=== PATIENT | female | born 1945 | race Caucasian/White ===

== ENCOUNTER 2016-07-14 11:55 | Observation (INO) | payer MEDICARE, SELFPAY ==
--- NOTE | 2016-07-14 12:13 | ERPHSYRPT ---
- History of Present Illness Time Seen by Provider: 07/14/16 12:00 Source: patient, family, other (Dr. Iyer's office) Exam Limitations: clinical condition Patient Subjective Stated Complaint: pt states she was working at [employer] and had a sudden onset of weakness and slurred speach. pt states she felt fine this morning up until 1000. Triage Nursing Assessment: pt pink, warm, dry. pt alert and oriented x3. pupils perrl. hand inspector advanced composite and foot pushes equal and strong. pt speach normal, only delayed. Timing/Duration: hour(s) (2) Severity: severe Character of Deficits: new weakness, altered sensation, impaired speech Deficits: weak Baseline/Normal Cognition: alert oriented x 3 Current Cognition: alert oriented x 3 Baseline Gait: walks w/o assistance Associated Symptoms: weakness, paresthesia, slurred speech Allergies/Adverse Reactions: morphine Adverse Reaction (Verified 07/14/16 12:05) BEHAVIOR Home Medications: Alprazolam 1 mg [Xanax 1 mg] 1 mg PO BID #0 02/10/12 [History] Carvedilol 3.125 mg [Coreg 3.125 MG] 3.125 mg PO BID #0 02/10/12 [History ] Metformin HCl 1000 mg [Glucophage 1000 MG] 1,000 mg PO BID #0 02/10/12 [History ] Cyclobenzaprine HCl 10 mg PO HS 07/14/16 [History] Escitalopram Oxalate 20 mg PO DAILY 07/14/16 [History] Magnesium Oxide 400 mg [Mag-Ox 400] 400 mg PO DAILY 07/14/16 [History] Potassium Chloride 20 Meq [Klor-Con 20 MEQ] 20 meq PO TID 07/14/16 [History] Pravastatin Sodium 40 mg PO DAILY 07/14/16 [History] Ropinirole HCl 0.25 mg PO HS 07/14/16 [History] Spironolact/Hydrochlorothiazid [Spironolactone-Hctz 25-25 Tab] 1 each PO DAILY 07/14/16 [History] Tizanidine HCl [Zanaflex] 2 mg PO TID 07/14/16 [History] Hx Tetanus, Diphtheria Vaccination/Date Given: Yes (up to date) Hx Influenza Vaccination/Date Given: Yes Hx Pneumococcal Vaccination/Date Given: Yes Immunizations Up to Date: Yes - Review of Systems Constitutional: Weakness Eyes: No Symptoms Ears, Nose, & Throat: No Symptoms Respiratory: No Symptoms Cardiac: No Symptoms Abdominal/Gastrointestinal: No Symptoms Musculoskeletal: No Symptoms Skin: No Symptoms Neurological: Parasthesia, Sensory Changes, Speech Changes Psychological: No Symptoms Endocrine: No Symptoms Hematologic/Lymphatic: No Symptoms Immunological/Allergic: No Symptoms - Past Medical History Pertinent Past Medical History: Yes Neurological History: No Pertinent History ENT History: Cataracts Cardiac History: Congestive Heart Failure, Other Respiratory History: No Pertinent History Endocrine Medical History: Diabetes Type II Musculoskeletal History: No Pertinent History GI Medical History: No Pertinent History History: No Pertinent History Psycho-Social History: Anxiety, Depression Female Reproductive Disorders: No Pertinent History Other Medical History: pacemaker/defib, cariomyopathy - Past Surgical History Past Surgical History: Yes Neuro Surgical History: No Pertinent History Cardiac: Pacemaker Respiratory: No Pertinent History Gastrointestinal: No Pertinent History Genitourinary: No Pertinent History Musculoskeletal: No Pertinent History Female Surgical History: Hysterectomy - Social History Smoking Status: Former smoker Exposure to second hand smoke: No Drug Use: none Patient Lives Alone: No - Female History Hx Now: No - Nursing Vital Signs Nursing Vital Signs: Initial Vital Signs Temperature 98.0 F Temperature Source Oral Pulse Rate 86 Respiratory Rate 18 Blood Pressure 122/71 Pain Intensity 0 - Strong Coma Scale Best Eye Response (Strong): (4) open spontaneously Best Verbal Response (Strong): (5) oriented Best Motor Response (Benji): (6) obeys commands Benji Total: 15 - Physical Exam General Appearance: mild distress, anxiety Eye Exam: bilateral eye: normal inspection, PERRL, EOMI Ears, Nose, Throat Exam: normal ENT inspection, pharynx normal Neck Exam: normal inspection, non-tender, supple, full range of motion Respiratory: normal breath sounds, lungs clear Cardiovascular: regular rate/rhythm, normal heart sounds, normal peripheral pulses Gastrointestinal: soft, normal bowel sounds Back Exam: normal inspection, normal range of motion Extremity Exam: normal inspection, normal range of motion, pelvis stable, parasthesia (right (dominant) thumb) Peripheral Pulses: dorsalis-pedis (R): 3+, dorsalis-pedis (L): 3+ Mental Status: alert, oriented x 3, cooperative exercise physiologist certified Exam: abnormal speech (slightly slow and slurred, but understandable and appropriate), hearing deficit (L) (at baseline. Cl hearing aids in place.), tongue midline Coordination/Gait: normal gait, normal cerebellar function Motor/Sensory: sensory deficit (right FA and hand. Unable to discriminate 2 points.) Skin Exam: normal color, warm, dry SpO2 Interpretation: normal SpO2: 100 Oxygen Delivery: Room Air - Course EKG Interpreted by Me: RATE (85), NORMAL AXIS (for pacemaker. Unchanged ECG since 02.11.2012 ECG.), Other (RV pacemaker ) - Radiology Exams Chest X-ray Interpretation: Discussed w/ radiologist, Negative - CT Exams Head CT Interpretation: Tele-radiologist Report (Stable negative CT head) Ordered Tests: Active Orders 24 hr Category Date Time Status ACCUCHECK [Accucheck] STAT Care 07/14/16 12:15 Active Post Production Assistant STAT Care 07/14/16 12:00 Active EKG-ER Only STAT Care 07/14/16 12:00 Active IV Insertion STAT Care 07/14/16 12:00 Active IV Insertion-2nd Peripheral STAT Care 07/14/16 12:27 Active NPO (ED) STAT Care 07/14/16 12:00 Active Oxygen-ED Only NASAL CANNULA 2 lpm Care 07/14/16 12:00 Active Pulse Oximetry (ED) STAT Care 07/14/16 12:00 Active CHEST 1 VIEW (PORTABLE) Stat Exams 07/14/16 12:00 Completed HEAD WITHOUT CONTRAST [CT] Stat Exams 07/14/16 12:01 Completed CBC W DIFF Stat Lab 07/14/16 12:18 Completed CMP Stat Lab 07/14/16 12:18 Completed PROTIME WITH INR Stat Lab 07/14/16 12:18 Completed PTT Stat Lab 07/14/16 12:18 Completed UA Stat Lab 07/14/16 12:18 Ordered Lab/Rad Data: Laboratory Result Diagrams 07/14/16 12:18 07/14/16 12:18 Laboratory Results 07/14/16 07/14/16 07/14/16 Range/Units 12:18 12:18 12:18 WBC 8.5 (4.0-10.5) K/mm3 RBC 4.83 (4.1-5.4) M/mm3 Hgb 14.5 (12.0-16.0) gm/dl Hct 43.2 (35-47) % MCV 89.4 (78-100) fl MCH 30.0 (26-32) pg MCHC 33.6 (32-36) g/dl RDW 12.9 (11.5-14.0) % Plt Count 179 (150-450) K/mm3 MPV 11.9 H (6-9.5) fl Gran % 52.5 (36.0-66.0) % Lymphocytes % 40.1 (24.0-44.0) % Monocytes % 6.3 (0.0-12.0) % Eosinophils % 0.9 (0.00-5.0) % Basophils % 0.2 (0.0-0.4) % Basophils # 0.02 (0-0.4) INR 1.00 (0.8-3.0) PTT 27.0 (25.3-37.0) SECONDS Sodium 141 (136-145) mEq/L Potassium 3.7 (3.5-5.1) mEq/L Chloride 101 (98-107) mEq/L Carbon Dioxide 27.2 (21-32) mEq/L Anion Gap 16.6 H (5-15) MEQ/L BUN 26 H (9-20) mg/dL Creatinine 1.33 H (0.55-1.30) mg/dl Estimated GFR 42 ML/MIN Glucose 126 H (70-110) MG/DL Calcium 9.3 (8.5-10.1) mg/dL Total Bilirubin 0.5 (0.2-1.0) mg/dL AST 21 (15-37) U/L ALT 22 (12-78) U/L Alkaline Phosphatase 67 (46-116) U/L Serum Total Protein 8.0 (6.4-8.2) gm/dL Albumin 4.4 (3.4-5.0) g/dL - Progress Progress: improved Discussed with : Shireen Counseled pt/family regarding: lab results, diagnosis, need for follow-up, rad results - Departure Time of Disposition: 12:45 Departure Disposition: Observation Clinical Impression: Complicated migraine TIA (transient ischemic attack) Qualifiers: Transient cerebral ischemia type: unspecified Qualified Code(s): G45.9 - Transient cerebral ischemic attack, unspecified Condition: Stable Critical Care Time: Yes Critical Care Time(excluding separately billable procedures): 30-74 minutes
--- NOTE | 2016-07-14 12:20 | XRAY ---
Indication: Stroke. Comparison: November 26, 2015 Portable chest remains clear. Heart is not enlarged and again demonstrates left-sided AICD. Bony thorax intact. Impression: Stable nonacute chest.
[2016-07-14 12:24] LABS: BASOPHIL % 0.2 % (0.0-0.4); Eosinophil % 0.9 % (0.00-5.0); Granulocytes % 52.5 % (36.0-66.0); Lymphocytes % 40.1 % (24.0-44.0); Mean Cell Volume 89.4 fl (78-100); Mean Platelet Volume 11.9 fl (6-9.5); Monocytes % 6.3 % (0.0-12.0); Platelet Count 179 K/mm3 (150-450); Red Blood Count 4.83 M/mm3 (4.1-5.4); Red Cell Distribution Width 12.9 % (11.5-14.0); White Blood Count 8.5 K/mm3 (4.0-10.5)
--- NOTE | 2016-07-14 12:25 | XRAY ---
Indication: Stroke. Multiple contiguous axial images obtained through the head without contrast. Comparison: March 09, 2014 Stable age-appropriate global atrophy. No acute intracranial hemorrhage, abnormal extra-axial fluid collection, or mass effect. Fourth ventricle is midline without hydrocephalus. Pascual-white matter differentiation preserved. Bony calvarium intact. Visualized paranasal sinuses and mastoid air cells are pneumatized and clear. Impression: Stable negative CT head without contrast exam. CTDI is 68.51
[2016-07-14 12:43] LABS: ALBUMIN 4.4 g/dL (3.4-5.0); ANION GAP 16.6 MEQ/L (5-15); BILIRUBIN,TOTAL 0.5 mg/dL (0.2-1.0); Carbon Dioxide 27.2 mEq/L (21-32); Potassium 3.7 mEq/L (3.5-5.1)
[2016-07-14 12:49] LABS: PROTIME 11.2 SECONDS (9.95-12.35)
[2016-07-14] MEDS ORDERED: Zofran 4 MG/2 ML VIAL IV PRN (13:15)
[2016-07-14] MEDS ORDERED: BABY ASPIRIN 81 MG CHEW ONE (13:23)
[2016-07-14 14:22] LABS: COMPLETE URINE MICROSCOPIC? NO; Collection Type VOID
[2016-07-14] MEDS: NovoLOG Insulin SQ PRN ×2 (17:06→22:04)
[2016-07-14] MEDS: Coreg 3.125 MG PO SCH (21:46)
[2016-07-14] MEDS: Klor Con 10 MEQ PO SCH (21:47)
[2016-07-14] MEDS: XANAX 1 MG PO SCH (21:47)
[2016-07-14] MEDS: MAG-OX 400 PO SCH (21:48)
[2016-07-14] MEDS ORDERED: NON-FORMULARY ITEM (Sacubitril/Valsartan [Entresto 24 Mg-26 Mg Tablet] 1 EACH) PO SCH (22:00)
[2016-07-14] MEDS ORDERED: ROPINIROLE HCL 0.25 MG PO SCH (22:00)
[2016-07-14] MEDS ORDERED: Flexeril 10 MG PO SCH (22:00)
[2016-07-14] MEDS ORDERED: ZOCOR 20MG PO SCH (22:00)
[2016-07-14] MEDS ORDERED: NON-FORMULARY ITEM (Potassium Chloride 20 Meq [Klor-Con 20 Meq] 20 MEQ) PO SCH (22:00)
[2016-07-14] MEDS ORDERED: Requip 0.5 MG PO SCH (22:00)
[2016-07-15] MEDS: MAG-OX 400 PO SCH (08:38)
[2016-07-15] MEDS: Klor Con 10 MEQ PO SCH ×2 (08:38→14:58)
[2016-07-15] MEDS: XANAX 1 MG PO SCH (08:38)
[2016-07-15] MEDS: TYLENOL 325 MG PO PRN ×2 (08:47→12:59)
[2016-07-15] MEDS: Coreg 3.125 MG PO SCH (08:57)
[2016-07-15] MEDS ORDERED: Lasix 40 MG PO SCH (10:00)
[2016-07-15] MEDS ORDERED: PROTONIX 40 MG IV IV SCH (10:00)
[2016-07-15] MEDS ORDERED: MEDICATION INTERVENTION MC SCH (10:00)
[2016-07-15] MEDS ORDERED: CLARITIN 10 MG PO SCH (10:00)
[2016-07-15] MEDS ORDERED: Aldactone 25 MG PO SCH (10:00)
[2016-07-15] MEDS ORDERED: NON-FORMULARY ITEM (Escitalopram Oxalate [Escitalopram Oxalate] 20 MG) PO SCH (10:00)
[2016-07-15] MEDS ORDERED: NON-FORMULARY ITEM (Cetirizine Hcl [Zyrtec] 10 MG) PO SCH (10:00)
[2016-07-15] MEDS ORDERED: [UNRECOGNIZED DRUG - OTHER] PO SCH (10:00)
[2016-07-15] MEDS ORDERED: NON-FORMULARY ITEM (Pravastatin Sodium [Pravastatin Sodium] 40 MG) PO SCH (10:00)
[2016-07-15] MEDS ORDERED: ECOTRIN 81 MG PO SCH (10:00)
[2016-07-15] MEDS ORDERED: Lexapro 10 MG PO SCH (10:00)
[2016-07-15] MEDS ORDERED: hydroDIURIL 25 MG PO SCH (10:00)
[2016-07-15] MEDS ORDERED: BABY ASPIRIN 81 MG CHEW PO SCH (10:00)
--- NOTE | 2016-07-15 12:36 | XRAY ---
Indication: TIA symptoms. Two-dimensional sonogram and color Doppler imaging of the carotid arteries of the neck was performed. Comparison: None Examination of the right carotid circulation negative for focal plaquing, critical stenosis, or obstruction. PSV of the CCA is 86 cm/s. PSV of the ICA is 72 cm/s. ICA/CCA ratio is 0.8. Normal antegrade vertebral artery flow. Examination of the left carotid circulation demonstrates slightly tortuous common carotid artery with minimal eccentric plaque in the proximal common carotid artery and bulb extending into the origin of internal and external carotid arteries. PSV of the CCA is 77 cm/s. PSV of the ICA is 85 cm/s. ICA/CCA ratio is 1.1. Normal antegrade vertebral artery flow. Impression: Minimal arteriosclerotic plaquing in the left carotid circulation with widely patent right carotid circulation. Velocity measurements and ratios are negative for hemodynamically significant flow-limiting stenosis.
[2016-07-15] MEDS ORDERED: Sodium Chloride 0.9% 10 ML FLUSH Syringe IV PRN (13:02)
[2016-07-15] MEDS ORDERED: BABY ASPIRIN 81 MG CHEW PO ONE (13:24)
--- NOTE | 2016-07-15 13:35 | PCM.SSS ---
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 She then could not think of words to speak and could not write words on paper. She also c/o numbness in R thumb and some patchy numbness in L hand with heaviness in L arm. A coworker had her sit down and she was able to text her daughter that there was something wrong; daughter came to get her and took her to ER. CT brain was neg. Initial stroke score of 3; decreased to 1 while in ER. Teleneurology consult was done; they felt the episode could be complicated migraine (patient had classic migraine with aura years ago) but could be TIA and needed admission for further workup. She has had an echo cardiogram within the last 6 months. Cannot get MRI due to having pacemaker. - Review of Systems Cardiac: Other (chest pressure) Abdominal/Gastrointestinal: Abdominal Pain, Other (feeling bloated and "pinched " when she bends over for the past 4-5 months) Neurological: Headache (some BIGGS superior scalp around the time of the episode), Parasthesia, Speech Changes Psychological: Anxiety, Depression (no suicidal ideation), No Suicidal Ideations Medications & Allergies Home Medications: Home Medication List Alprazolam 1 mg [Xanax 1 mg] 1 mg PO BID #0 02/10/12 [History Confirmed 07/14/16] Carvedilol 3.125 mg [Coreg 3.125 MG] 3.125 mg PO BID #0 02/10/12 [ History Confirmed 07/14/16] Metformin HCl 1000 mg [Glucophage 1000 MG] 1,000 mg PO BID #0 02/10/12 [ History Confirmed 07/14/16] Cetirizine HCl [Zyrtec] 10 mg PO DAILY 07/14/16 [History Confirmed 07/14/16] Cyclobenzaprine HCl 10 mg PO HS 07/14/16 [History Confirmed 07/14/16] Escitalopram Oxalate 20 mg PO DAILY 07/14/16 [History Confirmed 07/14/16] Furosemide 40 mg [Lasix 40 MG] 60 mg PO DAILY 07/14/16 [History Confirmed 07/14/16] Liraglutide [Victoza 2-Baldemar] 0.6 mg SQ HS 07/14/16 [History Confirmed 07/14/16] Magnesium Oxide 400 mg [Mag-Ox 400] 400 mg PO BID 07/14/16 [History Confirmed 07/14/16] Potassium Chloride 20 Meq [Klor-Con 20 MEQ] 20 meq PO TID 07/14/16 [History Confirmed 07/14/16] Pravastatin Sodium 40 mg PO DAILY 07/14/16 [History Confirmed 07/14/16] Ropinirole HCl 0.25 mg PO HS 07/14/16 [History Confirmed 07/14/16] Sacubitril/Valsartan [Entresto 24 mg-26 mg Tablet] 1 each PO HS 07/14/16 [ History Confirmed 07/14/16] Spironolact/Hydrochlorothiazid [Spironolactone-Hctz 25-25 Tab] 1 each PO DAILY 07/14/16 [History Confirmed 07/14/16] Tizanidine HCl [Zanaflex] 2 mg PO TID 07/14/16 [History Confirmed 07/14/16] Aspirin [Aspirin EC] 81 mg PO DAILY #30 tablet. 07/15/16 [Rx] Allergies/Adverse Reactions: Allergies Allergy/AdvReac Type Severity Reaction Status Date / Time morphine AdvReac BEHAVIOR Verified 07/14/16 12:05 - Past Medical History Past Medical History: Yes Neurological History: Migraines ENT History: Cataracts Cardiac History: Congestive Heart Failure, High Cholesterol, Other Respiratory History: No Pertinent History Endocrine Medical History: Diabetes Type II Musculoskelatal History: Fibromyalgia GI Medical History: No Pertinent History, Other History: No Pertinent History Pyscho-Social History: Anxiety, Depression Reproductive Disorders: No Pertinent History Comment: pacemaker/defib, cardiomyopathy; chronic constipation - Female History Are you now?: No - Past Surgical History Past Surgical History: Yes Neuro Surgical History: No Pertinent History Cardiac History: Pacemaker Respiratory Surgery: No Pertinent History GI Surgical History: No Pertinent History Genitourinary Surgical Hx: No Pertinent History Musculskeletal Surgical Hx: No Pertinent History Female Surgical History: Hysterectomy - Social History Smoking Status: Former smoker Exposure to second hand smoke: No Alcohol: None Drug Use: none - Physical Exam Vital Signs: Vital Signs - 24 hr Temp Pulse Resp BP Pulse Ox 07/15/16 12:00 18 07/15/16 11:37 98.5 F 84 18 104/61 94 L 07/15/16 08:00 18 07/15/16 07:13 98.3 F 79 18 91/55 98 07/15/16 07:06 82 18 95 07/15/16 04:00 97.7 F 81 18 94/55 97 07/15/16 00:00 98.0 F 91 H 17 88/53 94 L 07/14/16 21:15 96 07/14/16 20:00 98.3 F 97 H 19 107/53 96 07/14/16 15:44 86 16 98 07/14/16 15:03 98.4 F 91 H 18 100/57 97 07/14/16 13:50 98.4 F 91 H 18 100/57 97 07/14/16 13:40 98.4 F 91 H 18 100/57 97 Oxygen-Last 24 hours O2 Percentage 2 Liters = 28% O2 Percentage 2 Liters = 28% O2 Percentage 2 Liters = 28% O2 Percentage 2 Liters = 28% General Appearance: no apparent distress Neurologic Exam: alert, oriented x 3, cooperative, photo checker II-XII nml as tested (CN II not specifically tested, no light available), normal mood/affect, No motor weakness (applier 5/5 bilat) Eye Exam: PERRL/EOMI, eyes nml inspection Neck Exam: normal inspection, non-tender, No lymphadenopathy Respiratory Exam: normal breath sounds, lungs clear, No crackles/rales, No rhonchi, No wheezing Cardiovascular Exam: regular rate/rhythm, normal heart sounds Gastrointestinal/Abdomen Exam: soft, normal bowel sounds, No tenderness, No distention, No mass Extremity Exam: No pedal edema, No swelling Skin Exam: normal color, warm, dry Results - Labs Lab/Micro Results: Accuchecks Date 07/15/16 Date 07/15/16 Date 07/14/16 Date 07/14/16 Time 11:30 Time 07:30 Time 16:30 Accucheck Value: 112 Accucheck Value: 182 Accucheck Value: 170 Lab Results-Last 24 Hours 07/14/16 07/14/16 Range/Units 14:00 14:10 Troponin I < 0.017 (0.000-0.056) ng/ml Ur Collection Type VOID Urine Color YELLOW (YELLOW) Urine Appearance CLEAR (CLEAR) Urine pH 5.0 (5-6) Ur Specific [place] 1.010 (1.005-1.025) Urine Protein NEGATIVE (Negative) Urine Glucose (UA) NEGATIVE (NEGATIVE) mg/dL Urine Ketones NEGATIVE (NEGATIVE) Urine Nitrite NEGATIVE (NEGATIVE) Urine Bilirubin NEGATIVE (NEGATIVE) Urine Urobilinogen 0.2 (0-1) mg/dL Urine WBC (Auto) NEGATIVE (NEGATIVE) Urine RBC (Auto) NEGATIVE (0-5) Jorge/ul Specimen Received 07/14/15 1410 Accuchecks Date 07/15/16 Date 07/15/16 Date 07/14/16 Date 07/14/16 Time 11:30 Time 07:30 Time 16:30 Accucheck Value: 112 Accucheck Value: 182 Accucheck Value: 170 - Radiology Impressions Radiology Exams & Impressions: Radiology Procedures Category Date Time Status CAROTID BILATERAL [US] Urgent Exams 07/15/16 08:19 Completed - Other Procedures and Tests Respiratory Therapy 07/14/16 13:15 Oxygen NASAL CANNULA 2 lpm Assessment/Plan (1) TIA (transient ischemic attack) Current Visit: Yes Status: Acute Qualifiers: Transient cerebral ischemia type: unspecified Qualified Code(s): G45.9 - Transient cerebral ischemic attack, unspecified Assessment & Plan: vs complicated migraine. Would advise f/u with neurology. Currently not on blood thinner; started 81mg ASA here in the hospital and advised her to continue it at home. (2) Abdominal pain Current Visit: Yes Status: Acute Qualifiers: Abdominal location: generalized Qualified Code(s): R10.84 - Generalized abdominal pain Assessment & Plan: and bloating, for the past few months. will go ahead and start workup with CT ab /dpelvis. has had EGD years ago. Code(s): R10.9 - UNSPECIFIED ABDOMINAL PAIN (3) Diabetes mellitus Current Visit: No Status: Chronic Qualifiers: Diabetes mellitus type: type 2 Diabetes mellitus complication status: without complication Diabetes mellitus penitentiary insulin use: without training executive use Qualified Code(s): E11.9 - Type 2 diabetes mellitus without complications Assessment & Plan: Blood sugar good this morning; cover with SS as needed Code(s): E11.9 - TYPE 2 DIABETES MELLITUS WITHOUT COMPLICATIONS (4) Renal failure Current Visit: No Status: Chronic Assessment & Plan: chronic. eGFR 50 last month. recheck outpatient in 1-2 wks. Hospital Summary - Hospital Course Hospital Course: Pt admitted with question of TIA vs complicated migraine. Doing well now, no issues, feeling good. On ROS she is c/o abd pain with bloating for several months; will check that before she is discharged home. Otherwise, d/c home on ASA 81mg daily. - Vitals & Intake/Output Vital Signs: Vital Signs Temperature 98.5 F 07/15/16 11:37 Pulse Rate 84 07/15/16 11:37 Respiratory Rate 18 07/15/16 12:00 Blood Pressure 104/61 07/15/16 11:37 O2 Sat by Pulse Oximetry 94 L 07/15/16 11:37 Oxygen-Last Documented O2 Percentage 2 Liters = 28% Intake & Output: Intake & Output 07/13/16 07/14/16 07/15/16 07/16/16 11:59 11:59 11:59 11:59 Intake Total 2400 380 Balance 2400 380 Weight 71.259 kg - Lab Result Diagrams: 07/14/16 12:18 07/14/16 12:18 Lab Results-Last 24 Hrs: Accuchecks Date 07/15/16 Date 07/15/16 Date 07/14/16 Date 07/14/16 Time 11:30 Time 07:30 Time 16:30 Accucheck Value: 112 Accucheck Value: 182 Accucheck Value: 170 Lab Results-Last 24 Hours 07/14/16 07/14/16 Range/Units 14:00 14:10 Troponin I < 0.017 (0.000-0.056) ng/ml Ur Collection Type VOID Urine Color YELLOW (YELLOW) Urine Appearance CLEAR (CLEAR) Urine pH 5.0 (5-6) Ur Specific [place] 1.010 (1.005-1.025) Urine Protein NEGATIVE (Negative) Urine Glucose (UA) NEGATIVE (NEGATIVE) mg/dL Urine Ketones NEGATIVE (NEGATIVE) Urine Nitrite NEGATIVE (NEGATIVE) Urine Bilirubin NEGATIVE (NEGATIVE) Urine Urobilinogen 0.2 (0-1) mg/dL Urine WBC (Auto) NEGATIVE (NEGATIVE) Urine RBC (Auto) NEGATIVE (0-5) Jorge/ul Specimen Received 07/14/15 1410 Micro Results-Entire Visit: Accuchecks Date 07/15/16 Date 07/15/16 Date 07/14/16 Date 07/14/16 Time 11:30 Time 07:30 Time 16:30 Accucheck Value: 112 Accucheck Value: 182 Accucheck Value: 170 - Radiology Exams Ordered Rad Exams-Entire Visit: Radiology Procedures Category Date Time Status CAROTID BILATERAL [US] Urgent Exams 07/15/16 08:19 Completed - Procedures and Test Procedures and Tests throughout Hospitalization: Therapy Orders & Screens 07/14/16 13:15 Oxygen NASAL CANNULA 2 lpm Comment: - Discharge Disposition: Home, Self-Care Condition: Stable Prescriptions: Aspirin [Aspirin EC] 81 mg PO DAILY #30 tablet. Medications: Home Medications Alprazolam 1 mg [Xanax 1 mg] 1 mg PO BID #0 02/10/12 [Confirmed 07/14/16] Carvedilol 3.125 mg [Coreg 3.125 MG] 3.125 mg PO BID #0 02/10/12 [ Confirmed 07/14/16] Metformin HCl 1000 mg [Glucophage 1000 MG] 1,000 mg PO BID #0 02/10/12 [ Confirmed 07/14/16] Cetirizine HCl [Zyrtec] 10 mg PO DAILY 07/14/16 [Confirmed 07/14/16] Cyclobenzaprine HCl 10 mg PO HS 07/14/16 [Confirmed 07/14/16] Escitalopram Oxalate 20 mg PO DAILY 07/14/16 [Confirmed 07/14/16] Furosemide 40 mg [Lasix 40 MG] 60 mg PO DAILY 07/14/16 [Confirmed 07/14/16 ] Liraglutide [Victoza 2-Baldemar] 0.6 mg SQ HS 07/14/16 [Confirmed 07/14/16] Magnesium Oxide 400 mg [Mag-Ox 400] 400 mg PO BID 07/14/16 [Confirmed 09/25] Potassium Chloride 20 Meq [Klor-Con 20 MEQ] 20 meq PO TID 07/14/16 [Confirmed ] Pravastatin Sodium 40 mg PO DAILY 07/14/16 [Confirmed 07/14/16] Ropinirole HCl 0.25 mg PO HS 07/14/16 [Confirmed 07/14/16] Sacubitril/Valsartan [Entresto 24 mg-26 mg Tablet] 1 each PO HS 07/14/16 [ Confirmed 07/14/16] Spironolact/Hydrochlorothiazid [Spironolactone-Hctz 25-25 Tab] 1 each PO DAILY 07/14/16 [Confirmed 07/14/16] Tizanidine HCl [Zanaflex] 2 mg PO TID 07/14/16 [Confirmed 07/14/16] Active Inpatient Medications Acetaminophen (Tylenol 325 Mg) 650 mg PO Q4H PRN PRN PRN Reason: PAIN AND/OR FEVER Stop: 08/13/16 13:14 Last Admin: 07/15/16 12:59 Dose: 650 mg Alprazolam (Xanax 1 Mg) 1 mg PO BID [facility] Stop: 08/13/16 21:59 Last Admin: 07/15/16 08:38 Dose: 1 mg Aspirin (Ecotrin 81 Mg) 81 mg PO DAILY [facility] Stop: 08/14/16 09:59 Last Admin: 07/15/16 08:38 Dose: 81 mg Carvedilol (Coreg 3.125 Mg) 3.125 mg PO BID [facility] Stop: 08/13/16 21:59 Last Admin: 07/15/16 08:57 Dose: Not Given Cyclobenzaprine HCl (Flexeril 10 Mg) 10 mg PO HS [facility] Stop: 08/13/16 21:59 Last Admin: 07/14/16 21:48 Dose: 10 mg Escitalopram Oxalate (Lexapro 10 Mg) 20 mg PO DAILY [facility] Stop: 08/14/16 09:59 Last Admin: 07/15/16 08:38 Dose: 20 mg Furosemide (Lasix 40 Mg) 60 mg PO DAILY [facility] Stop: 08/14/16 09:59 Last Admin: 07/15/16 08:58 Dose: Not Given Hydrochlorothiazide (Hydrodiuril 25 Mg) 25 mg PO DAILY [facility] Stop: 08/14/16 09:59 Last Admin: 07/15/16 08:58 Dose: Not Given Insulin Aspart (Novolog Insulin) 0 unit SQ UD PRN PRN Reason: HYPERGLYCEMIA Stop: 08/13/16 13:14 Last Admin: 07/14/16 22:04 Dose: 3 unit Loratadine (Claritin 10 Mg) 10 mg PO DAILY [facility] Stop: 08/14/16 09:59 Last Admin: 07/15/16 08:38 Dose: 10 mg Magnesium Oxide (Mag-Ox 400) 400 mg PO BID [facility] Stop: 08/13/16 21:59 Last Admin: 07/15/16 08:38 Dose: 400 mg Ondansetron HCl (Zofran 4 Mg/2 Ml Vial) 4 mg IV Q6H PRN PRN PRN Reason: NAUSEA/VOMITING Stop: 08/13/16 13:14 Pantoprazole Sodium (Protonix 40 Mg Iv) 40 mg IV Q24H10 [facility] Stop: 08/14/16 09:59 Last Admin: 07/15/16 08:39 Dose: 40 mg Potassium Chloride (Klor Con 10 Meq) 20 meq PO TID [facility] Stop: 08/13/16 21:59 Last Admin: 07/15/16 08:38 Dose: 20 meq Ropinirole HCl (Requip 0.5 Mg) 0.25 mg PO HS [facility] Stop: 08/13/16 21:59 Last Admin: 07/14/16 21:47 Dose: 0.25 mg Simvastatin (Zocor 20mg) 40 mg PO HS [facility] Stop: 08/13/16 21:59 Last Admin: 07/14/16 21:47 Dose: 40 mg Sodium Chloride (Sodium Chloride 0.9% 10 Ml Flush Syringe) 10 ml IV Q8HT [facility] Stop: 08/14/16 13:59 Sodium Chloride (Sodium Chloride 0.9% 10 Ml Flush Syringe) 10 ml IV PRN PRN PRN Reason: FLUSH Stop: 08/14/16 13:01 Spironolactone (Aldactone 25 Mg) 25 mg PO DAILY [facility] Stop: 08/14/16 09:59 Last Admin: 07/15/16 08:57 Dose: Not Given Follow up with: NOEMY MCGINNIS [Primary Care Provider] -
[2016-07-15] MEDS ORDERED: Sodium Chloride 0.9% 10 ML FLUSH Syringe IV SCH (14:00)
[2016-07-15 20:03] VITALS: BP 114/60; PULSE 84; O2SAT 94
--- NOTE | 2016-07-16 08:41 | XRAY ---
Indication: Abdominal pain and bloating. Multiple contiguous axial images obtained through the abdomen and pelvis without contrast as ordered. Comparison: March 05, 2015 Lung bases now demonstrates minimal bibasilar dependent atelectasis. Heart is not enlarged. Contrasted stomach and bowel loops appear nonobstructed. There is now moderate duodenal circumferential wall thickening favoring duodenitis. Lesser degree seen of the proximal jejunum. Again there is moderate scattered colonic fecal debris throughout. Appendix not seen. No free fluid/air. Urinary bladder is now markedly distended concerning for outlet obstruction versus neurogenic bladder. Again tiny gallstones and hysterectomy. Remaining liver, pancreas, spleen, adrenal glands, kidneys, and ureters appear unremarkable for noncontrast exam. There remains mild aortoiliac calcifications without AAA. Osseous structures intact again with mild degenerative changes. Impression: 1. Duodenal circumferential wall thickening. Rule out duodenitis. 2. Again fecal stasis without obstruction. 3. Markedly distended urinary bladder. Rule out outlet obstruction versus neurogenic bladder. 4. Stable gallstones. CT DI is 19.13
== END 2016-07-15 20:27 | disposition home or self-care (01) ==
LOC: ED 11:55 → MED SURG 13:40
PROVIDERS: ADMIT Family Medicine; ATTEND Family Medicine
DX: G45.9 Transient cerebral ischemic attack, unspecified (principal); E11.9 Type 2 diabetes mellitus without complications; Z79.4 Long term (current) use of insulin; N19 Unspecified kidney failure; F41.8 Other specified anxiety disorders; Z79.899 Other long term (current) drug therapy; Z95.0 Presence of cardiac pacemaker
CPT/HCPCS: 36000; 36415; 70450; 71010; 74176; 80053; 81002; 82962; 83036; 84484; 85025; 85610; 85730; 93005; 93041; 93268; 93880; 94760; 99284; G0378; Q3014

== ENCOUNTER 2016-07-23 05:53 | Day surgery (SDC) | payer MEDICARE, SELFPAY ==
[2016-07-23] MEDS ORDERED: Lactated Ringers 1,000 ML IV SCH (06:30)
[2016-07-23 09:17] VITALS: BP 106/66; PULSE 72; O2SAT 100
[2016-07-23] MEDS ORDERED: DIPRIVAN 200 MG/20 ML IV ONE (10:44)
[2016-07-23] MEDS ORDERED: SUBLIMAZE 100 MCG/2 ML IV ONE (10:44)
[2016-07-23] MEDS ORDERED: Versed 2 MG/2 ML Injection IV ONE (10:44)
--- NOTE | 2016-07-23 13:14 | OP ---
SURGERY DATE/TIME: 07/23/2016 0700 PREOPERATIVE DIAGNOSES: 1) Gastroesophageal reflux disease. 2) Abnormal CT scan. 3) Constipation. POSTOPERATIVE DIAGNOSES: 1) Normal EGD. 2) Colon polyps x3. PROCEDURES: 1) EGD. 2) Colonoscopy. SURGEON: Jf Robin M.D. ANESTHESIA: MAC by Conor Urias CRNA. ESTIMATED BLOOD LOSS: Minimal. SPECIMENS: Two cold forceps biopsies in the duodenum and three cold forceps polypectomies. DESCRIPTION OF PROCEDURE: After informed written consent was obtained, the patient was taken to the endoscopy suite. She underwent monitored anesthesia after a bite block was inserted. The endoscope was inserted into posterior oropharynx and under direct visualization the esophagus was traversed. The esophageal mucosa had a normal appearance free of any lesions or defects. The gastroesophageal junction and gastric mucosa likewise appeared normal free of any abnormalities. The gastric mucosa was rugated and normal in appearance. The gastric antrum was at somewhat of a sharp angle and there was some redundancy of the gastric mucosal folds there but there were no obvious mucosal abnormalities. The pylorus was traversed with minimal difficulty and the first and second portions of the duodenum appeared to be within normal limits. Two random biopsies were taken due to the concern for possible thickening of the duodenal folds on CT scan. The suspicion is that her anatomy showed this abnormality due to angulation of the gastric antrum. The remainder of the mucosa was again normal upon withdrawal. The scope was removed and the scopes were switched. Digital rectal exam showed normal sphincter tone and no internal lesions. The scope was inserted in the rectum and sequentially the entire colonic mucosa was traversed. The level of cecum was reached and verified with direct visualization of ileocecal valve. Prep was noted to be poor with fair amount of liquid stool throughout the entire length of the colon. Upon withdrawal there was a small sessile polyp at the proximal transverse colon near the hepatic flexure which was removed with cold forceps in its entirety. There was minimal bleeding following removal of the entire lesion and appeared to be removed adequately. On further withdrawal there were two small sessile polyps in near proximity to each other in the descending colon and these were removed in their entirety with cold forceps. The remainder of the exam was within normal limits. Retroflexion was performed prior to withdrawal and was within normal limits. The scope was removed and the patient was transferred to the recovery room in excellent condition.
== END 2016-07-23 09:05 | disposition home or self-care (01) ==
LOC: SDC 05:53
PROVIDERS: ATTEND Family Medicine
PROC: 0DBL8ZX Excision of Transverse Colon, Via Natural or Artificial Opening Endoscopic, Diagnostic (ICD-10-PCS; principal; 2016-07-23)
PROC: 0DBM8ZX Excision of Descending Colon, Via Natural or Artificial Opening Endoscopic, Diagnostic (ICD-10-PCS; 2016-07-23)
DX: K21.9 Gastro-esophageal reflux disease without esophagitis (principal); R93.8 Abnormal findings on diagnostic imaging of other specified body structures; K59.00 Constipation, unspecified; D12.3 Benign neoplasm of transverse colon; D12.4 Benign neoplasm of descending colon; E11.9 Type 2 diabetes mellitus without complications; I10 Essential (primary) hypertension
CPT/HCPCS: 00740; 00810; 36415; 82962; 88305; J2250; J2704; J3010

== ENCOUNTER 2021-02-13 20:04 | Observation (INO) | payer MEDICARE ==
--- NOTE | 2021-02-13 20:49 | ERPHSYRPT ---
- History of Present Illness Time Seen by Provider: 02/13/21 20:07 Source: patient, family Exam Limitations: no limitations Patient Subjective Stated Complaint: . Triage Nursing Assessment: . Physician History: 75 years old female with history of hypertension, cardiomyopathy myopathy, diabetes mellitus presented in the ER with chief complaint of word finding difficulty sudden onset around 7:30 PM almost an hour prior to arrival, continuous. Patient feels frustrated and confused about not coming up with the right worse which she wants to. She denies any focal numbness tingling or weakness. Denies any visual symptoms. No slurring of speech otherwise. Denies any chest pain palpitations or shortness of breath. Timing/Duration: hour(s) (1), constant, sudden Severity: moderate Character of Deficits: impaired speech Deficits: no difficulties Baseline/Normal Cognition: alert oriented x 3 Current Cognition: alert oriented x 3 Baseline Gait: walks w/o assistance Associated Symptoms: denies symptoms Allergies/Adverse Reactions: iopamidol [From Isovue-M] Allergy (Severe, Verified 02/13/21 20:25) CONVULSIONS FROM INTRATHECAL ADMINISTRATION morphine Adverse Reaction (Severe, Verified 02/13/21 20:25) BEHAVIOR Home Medications: ALPRAZolam 1 MG [Xanax 1 mg] 1 mg PO BID #0 02/10/12 [History] Metformin HCl 1000 mg [Glucophage 1000 MG] 1,000 mg PO BID #0 02/10/12 [History] Cetirizine HCl [Zyrtec] 10 mg PO DAILY 07/14/16 [History] Escitalopram Oxalate 20 mg PO DAILY 07/14/16 [History] Furosemide 40 mg [Lasix 40 MG] 60 mg PO DAILY 07/14/16 [History] Magnesium Oxide 400 mg [Mag-Ox 400] 400 mg PO BID 07/14/16 [History] Potassium Chloride 20 Meq [Klor-Con 20 MEQ] 20 meq PO TID 07/14/16 [History] Pravastatin Sodium 40 mg PO DAILY 07/14/16 [History] Ropinirole HCl 0.25 mg PO HS 07/14/16 [History] Sacubitril/Valsartan [Entresto 24 mg-26 mg Tablet] 1 each PO BID 07/14/16 [History] Spironolact/Hydrochlorothiazid [Spironolactone-Hctz 25-25 Tab] 1 each PO DAILY 07/14/16 [History] Tizanidine HCl [Zanaflex] 2 mg PO TID 07/14/16 [History] Hx Tetanus, Diphtheria Vaccination/Date Given: Yes Hx Influenza Vaccination/Date Given: Yes Hx Pneumococcal Vaccination/Date Given: Yes Immunizations Up to Date: Yes Travel Risk - International Travel Have you traveled outside of the country in past 3 weeks: No - Coronavirus Screening Are you exhibiting any of the following symptoms?: No Close contact with a COVID-19 positive Pt in past 14-21 Days: No - Vaccine Status Have you recieved a Covid-19 vaccination: No - Review of Systems Constitutional: No Symptoms Eyes: No Symptoms Ears, Nose, & Throat: No Symptoms Respiratory: No Symptoms Cardiac: No Symptoms Abdominal/Gastrointestinal: No Symptoms Genitourinary Symptoms: No Symptoms Musculoskeletal: No Symptoms Skin: No Symptoms Psychological: No Symptoms Endocrine: No Symptoms Hematologic/Lymphatic: No Symptoms - Past Medical History Pertinent Past Medical History: Yes Neurological History: TIA ENT History: Cataracts Cardiac History: Arrhythmia, Hypertension, Myocardial Infarction ([place]) Respiratory History: No Pertinent History Endocrine Medical History: Diabetes Type II Musculoskeletal History: Other GI Medical History: No Pertinent History, Other History: No Pertinent History Psycho-Social History: Anxiety, Depression Female Reproductive Disorders: No Pertinent History Other Medical History: TYPE IDDM, CARDIOMYOPATHY AND HAS PACEMAKER, DEFIBRILLATOR; PT. REPORTS SHE HAS FREQUENT "HIP PN" AND NECK PN. PT. REPORTS SHE DOES HAVE SOME DYSPNEA ON EXERTION. - Past Surgical History Past Surgical History: Yes Neuro Surgical History: No Pertinent History Cardiac: Cardiac Catheterization, Internal Defibrillator, Pacemaker Respiratory: No Pertinent History Gastrointestinal: No Pertinent History Genitourinary: No Pertinent History Musculoskeletal: No Pertinent History Female Surgical History: Hysterectomy - Social History Smoking Status: Former smoker Exposure to second hand smoke: Yes Drug Use: none Patient Lives Alone: No - Female History Hx Last Menstrual Period: POST Hx Now: No - Nursing Vital Signs Nursing Vital Signs: Initial Vital Signs Temperature 97.7 F 02/13/21 20:17 Pulse Rate 102 H 02/13/21 20:17 Respiratory Rate 18 02/13/21 20:17 Blood Pressure 131/79 02/13/21 20:17 O2 Sat by Pulse Oximetry 98 02/13/21 20:17 Pain Scale Pain Intensity 5 - Benji Coma Scale Best Eye Response ([place]): (4) open spontaneously Best Verbal Response (Benji): (5) oriented Best Motor Response ([place]): (6) obeys commands [place] Total: 15 - Physical Exam General Appearance: no apparent distress, alert, anxiety Eye Exam: bilateral eye: normal inspection, PERRL, EOMI Ears, Nose, Throat Exam: normal ENT inspection, TMs normal, pharynx normal, moist mucous membranes Neck Exam: normal inspection, non-tender, supple, full range of motion Respiratory: normal breath sounds, lungs clear Cardiovascular: regular rate/rhythm, gallop Gastrointestinal: soft, normal bowel sounds, No tenderness Extremity Exam: normal inspection, normal range of motion, pelvis stable Mental Status: alert, oriented x 3, cooperative 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 i director Exam: normal hearing, normal speech, PERRL, No abnormal eye position, No abnormal gag reflex Motor/Sensory: no motor deficit, no sensory deficit, no pronator drift, negative Babinski's sign DTR: bicep (R): 2+, bicep (L): 2+, tricep (R): 2+, tricep (L): 2+, knee (R): 2+, knee (L): 2+ Skin Exam: normal color SpO2 Interpretation: normal SpO2: 98 O2 Delivery: Room Air - Course EKG Interpreted by Me: RATE (100), Left [place] Deviation, Other (Paced rhythm) Ordered Tests: Active Orders 24 hr Category Date Time Status EKG-ER Only STAT Care 02/13/21 20:28 Active IV Insertion STAT Care 02/13/21 20:28 Active NPO (ED) STAT Care 02/13/21 20:27 Active NPO (ED) STAT Care 02/13/21 20:28 Active CHEST 1 VIEW (PORTABLE) Stat Exams 02/13/21 20:27 Completed HEAD WITHOUT CONTRAST [CT] Stat Exams 02/13/21 20:27 Taken CBC W DIFF Stat Lab 02/13/21 20:55 Completed CMP Stat Lab 02/13/21 20:55 Completed Lactic Acid Stat Lab 02/13/21 20:27 Completed TROPONIN Q3H Lab 02/13/21 21:14 Completed TROPONIN Q3H Lab 02/13/21 23:15 Completed TROPONIN Q3H Lab 02/14/21 02:30 Ordered TROPONIN Q3H Lab 02/14/21 05:30 Ordered TROPONIN Q3H Lab 02/14/21 08:30 Ordered UA W/RFX UR CULTURE Stat Lab 02/13/21 20:55 Completed Transfer Order Routine Transfer 02/13/21 Ordered Medication Summary Discontinued Medications Generic Name Dose Route Start Last Admin Trade Name Freq PRN Reason Stop Dose Admin Aspirin 324 mg 02/13/21 21:33 02/13/21 21:38 Baby Aspirin 81 Mg Chew PO 02/13/21 21:34 324 mg STAT ONE Administration Clopidogrel Bisulfate 75 mg 02/13/21 21:34 02/13/21 21:38 Plavix 75 Mg Tablet PO 02/13/21 21:35 75 mg STAT ONE Administration Clopidogrel Bisulfate Confirm 02/13/21 21:37 Plavix 75 Mg Tablet Administered 02/13/21 21:38 Dose 75 mg .ROUTE .STK-MED ONE Ceftriaxone Sodium/Dextrose 1 g in 50 mls @ 100 mls/hr 02/13/21 22:39 02/13/21 22:52 Rocephin 1 Gm-D5w 50 Ml Bag IV 02/13/21 23:08 100 mls/hr STAT STA 100 mls/hr Administration Ceftriaxone Sodium/Dextrose Confirm 02/13/21 22:50 Rocephin 1 Gm-D5w 50 Ml Bag Administered 02/13/21 22:51 Dose 1 g in 50 mls @ ud IV .STK-MED ONE Lab/Rad Data: Laboratory Result Diagrams 02/13/21 20:55 02/13/21 20:55 Laboratory Results 02/13/21 02/13/21 02/13/21 Range/Units 23:15 22:30 21:14 WBC (4.0-10.5) K/mm3 RBC (4.1-5.4) M/mm3 Hgb (12.0-16.0) gm/dl Hct (35-47) % MCV (78-100) fl MCH (26-32) pg MCHC (32-36) g/dl RDW (11.5-14.0) % Plt Count (150-450) K/mm3 MPV (7.5-11.0) fl Gran % (36.0-66.0) % Eos # (Auto) (0-0.5) Absolute Lymphs (auto) (1.0-4.6) Absolute Monos (auto) (0.0-1.3) Lymphocytes % (24.0-44.0) % Monocytes % (0.0-12.0) % Eosinophils % (0.00-5.0) % Basophils % (0.0-0.4) % Absolute Granulocytes (1.4-6.9) Basophils # (0-0.4) Sodium (137-145) mmol/L Potassium (3.5-5.1) mmol/L Chloride (98-107) mmol/L Carbon Dioxide (22-30) mmol/L Anion Gap (5-15) MEQ/L BUN (7-17) mg/dL Creatinine (0.52-1.04) mg/dL Estimated GFR ML/MIN Glucose (74-106) mg/dL Lactic Acid (0.4-2.0) Calcium (8.4-10.2) mg/dL Total Bilirubin (0.2-1.3) mg/dL AST (14-36) U/L ALT (0-35) U/L Alkaline Phosphatase (38-126) U/L Troponin I < 0.012 < 0.012 (0.000-0.034) ng/mL Serum Total Protein (6.3-8.2) g/dL Albumin (3.5-5.0) g/dL Urine Color (YELLOW) Urine Appearance (CLEAR) Urine pH (5-6) Ur Specific [place] (1.005-1.025) Urine Protein (Negative) Urine Ketones (NEGATIVE) Urine Blood (0-5) Jorge/ul Urine Nitrite (NEGATIVE) Urine Bilirubin (NEGATIVE) Urine Urobilinogen (0-1) mg/dL Ur Leukocyte Esterase (NEGATIVE) Urine WBC (Auto) (0-5) /HPF Urine RBC (Auto) (0-2) /HPF U Epithel Cells (Auto) (FEW) /HPF Urine Bacteria (Auto) (NEGATIVE) /HPF Urine Mucus (Auto) (NEGATIVE) /HPF Urine Culture Reflexed (NO) Urine Glucose (NEGATIVE) mg/dL SARS-CoV-2 (PCR) NEGATIVE (NEGATIVE) 02/13/21 02/13/21 02/13/21 Range/Units 20:55 20:55 20:55 WBC 7.5 (4.0-10.5) K/mm3 RBC 4.86 (4.1-5.4) M/mm3 Hgb 14.5 (12.0-16.0) gm/dl Hct 42.8 (35-47) % MCV 88.1 (78-100) fl MCH 29.8 (26-32) pg MCHC 33.9 (32-36) g/dl RDW 12.5 (11.5-14.0) % Plt Count 140 L (150-450) K/mm3 MPV 13.7 H (7.5-11.0) fl Gran % 41.7 (36.0-66.0) % Eos # (Auto) 0.10 (0-0.5) Absolute Lymphs (auto) 3.71 (1.0-4.6) Absolute Monos (auto) 0.52 (0.0-1.3) Lymphocytes % 49.7 H (24.0-44.0) % Monocytes % 7.0 (0.0-12.0) % Eosinophils % 1.3 (0.00-5.0) % Basophils % 0.3 (0.0-0.4) % Absolute Granulocytes 3.11 (1.4-6.9) Basophils # 0.02 (0-0.4) Sodium 136 L (137-145) mmol/L Potassium 4.1 (3.5-5.1) mmol/L Chloride 95 L (98-107) mmol/L Carbon Dioxide 30 (22-30) mmol/L Anion Gap 15.5 H (5-15) MEQ/L BUN 14 (7-17) mg/dL Creatinine 1.00 (0.52-1.04) mg/dL Estimated GFR 57.6 ML/MIN Glucose 157 H (74-106) mg/dL Lactic Acid (0.4-2.0) Calcium 9.6 (8.4-10.2) mg/dL Total Bilirubin 0.40 (0.2-1.3) mg/dL AST 50 H (14-36) U/L ALT 40 H (0-35) U/L Alkaline Phosphatase 65 (38-126) U/L Troponin I (0.000-0.034) ng/mL Serum Total Protein 7.6 (6.3-8.2) g/dL Albumin 4.5 (3.5-5.0) g/dL Urine Color YELLOW (YELLOW) Urine Appearance CLEAR (CLEAR) Urine pH 5.0 (5-6) Ur Specific [place] 1.016 (1.005-1.025) Urine Protein NEGATIVE (Negative) Urine Ketones NEGATIVE (NEGATIVE) Urine Blood NEGATIVE (0-5) Jorge/ul Urine Nitrite NEGATIVE (NEGATIVE) Urine Bilirubin NEGATIVE (NEGATIVE) Urine Urobilinogen 4 (0-1) mg/dL Ur Leukocyte Esterase LARGE (NEGATIVE) Urine WBC (Auto) 6-10 (0-5) /HPF Urine RBC (Auto) 0-2 (0-2) /HPF U Epithel Cells (Auto) NONE (FEW) /HPF Urine Bacteria (Auto) NONE (NEGATIVE) /HPF Urine Mucus (Auto) SLIGHT (NEGATIVE) /HPF Urine Culture Reflexed NO (NO) Urine Glucose NEGATIVE (NEGATIVE) mg/dL SARS-CoV-2 (PCR) (NEGATIVE) 02/13/21 Range/Units 20:27 WBC (4.0-10.5) K/mm3 RBC (4.1-5.4) M/mm3 Hgb (12.0-16.0) gm/dl Hct (35-47) % MCV (78-100) fl MCH (26-32) pg MCHC (32-36) g/dl RDW (11.5-14.0) % Plt Count (150-450) K/mm3 MPV (7.5-11.0) fl Gran % (36.0-66.0) % Eos # (Auto) (0-0.5) Absolute Lymphs (auto) (1.0-4.6) Absolute Monos (auto) (0.0-1.3) Lymphocytes % (24.0-44.0) % Monocytes % (0.0-12.0) % Eosinophils % (0.00-5.0) % Basophils % (0.0-0.4) % Absolute Granulocytes (1.4-6.9) Basophils # (0-0.4) Sodium (137-145) mmol/L Potassium (3.5-5.1) mmol/L Chloride (98-107) mmol/L Carbon Dioxide (22-30) mmol/L Anion Gap (5-15) MEQ/L BUN (7-17) mg/dL Creatinine (0.52-1.04) mg/dL Estimated GFR ML/MIN Glucose (74-106) mg/dL Lactic Acid 1.9 (0.4-2.0) Calcium (8.4-10.2) mg/dL Total Bilirubin (0.2-1.3) mg/dL AST (14-36) U/L ALT (0-35) U/L Alkaline Phosphatase (38-126) U/L Troponin I (0.000-0.034) ng/mL Serum Total Protein (6.3-8.2) g/dL Albumin (3.5-5.0) g/dL Urine Color (YELLOW) Urine Appearance (CLEAR) Urine pH (5-6) Ur Specific [place] (1.005-1.025) Urine Protein (Negative) Urine Ketones (NEGATIVE) Urine Blood (0-5) Jorge/ul Urine Nitrite (NEGATIVE) Urine Bilirubin (NEGATIVE) Urine Urobilinogen (0-1) mg/dL Ur Leukocyte Esterase (NEGATIVE) Urine WBC (Auto) (0-5) /HPF Urine RBC (Auto) (0-2) /HPF U Epithel Cells (Auto) (FEW) /HPF Urine Bacteria (Auto) (NEGATIVE) /HPF Urine Mucus (Auto) (NEGATIVE) /HPF Urine Culture Reflexed (NO) Urine Glucose (NEGATIVE) mg/dL SARS-CoV-2 (PCR) (NEGATIVE) - Progress Progress: improved, re-examined Progress Note: 02/13/21 21:32 75 years old is evaluated for symptoms with speech/word finding difficulty. Prompt CT head is obtained without contrast which is negative for any acute findings. She has a subjective difficulty speech but no obvious objective findings. I have obtained neuro consult through [facility], recommended adding aspirin and Plavix, since patient has a defibrillator/pacemaker cannot have MRI and also she is allergic to iodine and cannot have CTAs. Recommended carotid Doppler, echo, lipid panel, A1c and other vascular risk factors stratification and observation in the hospital. Plan discussed with patient and family who understand and agree with it. Discussed with Dr. Sheriff, reviewed history, work-up and agreed with admission. 02/13/21 22:39 Does have UTI and started on Rocephin. Discussed with .: Reema, Other Will see patient in: hospital (observation) Counseled pt/family regarding: lab results, diagnosis, rad results - Departure Departure Disposition: Observation Clinical Impression: Stroke-like symptoms, Acute UTI Condition: Stable Critical Care Time: Yes Critical Care Time(excluding separately billable procedures): Critical 30-74 mi ns Referrals: NOEMY SANCHEZ [Primary Care Provider] -
[2021-02-13 21:26] LABS: Absolute Neutrophil Ct (ANC) 3.11 (1.4-6.9); BASOPHIL % 0.3 % (0.0-0.4); Basophil (Absolute #) 0.02 (0-0.4); Eosinophil % 1.3 % (0.00-5.0); Hematocrit 42.8 % (35-47); Hemoglobin 14.5 gm/dl (12.0-16.0); Lymphocyte (Absolute #) 3.71 (1.0-4.6); Lymphocytes % 49.7 % (24.0-44.0); Mean Cell Volume 88.1 fl (78-100); Mean Corpuscular Hemoglobin 29.8 pg (26-32); Mean Corpuscular Hgb Concent. 33.9 g/dl (32-36); Mean Platelet Volume 13.7 fl (7.5-11.0); Monocyte (Absolute #) 0.52 (0.0-1.3); Neutrophil % 41.7 % (36.0-66.0); Platelet Count 140 K/mm3 (150-450); Red Blood Count 4.86 M/mm3 (4.1-5.4); Red Cell Distribution Width 12.5 % (11.5-14.0); White Blood Count 7.5 K/mm3 (4.0-10.5)
[2021-02-13] MEDS ORDERED: BABY ASPIRIN 81 MG CHEW PO ONE (21:33)
[2021-02-13] MEDS ORDERED: PLAVIX 75 MG Tablet PO ONE (21:34)
[2021-02-13] MEDS ORDERED: PLAVIX 75 MG Tablet ONE (21:37)
[2021-02-13 21:45] LABS: Appearance CLEAR (CLEAR); Bilirubin NEGATIVE (NEGATIVE); Blood NEGATIVE Ery/ul (0-5); Glucose NEGATIVE (NEGATIVE); Ketones NEGATIVE (NEGATIVE); Leukocyte Esterase LARGE (NEGATIVE); Mucus SLIGHT /HPF (NEGATIVE); Nitrite NEGATIVE (NEGATIVE); Protein,Urine Dip NEGATIVE (Negative); RBC 0-2 /HPF (0-2); Specific Gravity 1.016 (1.005-1.025); Urobilinogen 4 mg/dL (0-1)
[2021-02-13 21:55] LABS: ALBUMIN 4.5 g/dL (3.5-5.0); ANION GAP 15.5 MEQ/L (5-15); BILIRUBIN,TOTAL 0.4 mg/dL (0.2-1.3); Calcium 9.6 mg/dL (8.4-10.2); EST GLOMERULAR FILTRATION RATE 57.6 ML/MIN; Potassium 4.1 mmol/L (3.5-5.1); Total Protein 7.6 g/dL (6.3-8.2)
--- NOTE | 2021-02-13 21:57 | XRAY ---
Exam: AP upright portable chest film from 02/13/2021. Comparison: AP upright sitting portable chest film from 07/14/2016. Indication: Stroke-like symptoms. Findings: The transverse heart size appears within normal limits. There is mild tortuosity of both the ascending and descending thoracic aorta. The remainder of the kavon and mediastinal structures appears unremarkable. There is a left-sided AICD seen. One lead tip is in the projection of the right atrium and the other the tip is in the projection of the right ventricle. There is a third lead which I believe is within the coronary sinus representing no change. The leads appear intact. The lungs are adequately inflated. The power pack for the AICD partially obscures visualization of the lateral left midlung field. Otherwise, the lung loera appear clear. Pulmonary vascularity is normal. No pneumothorax or pleural effusion is seen. Mild right acromioclavicular joint arthropathy is again seen. No acute osseous process is seen. Impression: 1. No acute cardiopulmonary disease is seen, no change from 07/14/2016. 2. A left-sided AICD is again noted, as discussed above.
[2021-02-13] MEDS ORDERED: ROCEPHIN 1 Gm-D5w 50 ml Bag** 1 G/50 ML IVPB IV STA (22:39)
[2021-02-13] MEDS ORDERED: ROCEPHIN 1 Gm-D5w 50 ml Bag** 1 G/50 ML IVPB IV ONE (22:50)
[2021-02-14] MEDS ORDERED: Zofran 4 MG/2 ML VIAL IV PRN (01:41)
[2021-02-14] MEDS ORDERED: DUONEB 0.5-3 MG/3 ml Neb IH PRN (01:41)
[2021-02-14] MEDS ORDERED: TYLENOL 325 MG PO PRN (01:41)
[2021-02-14] MEDS ORDERED: HUMALOG SQ PRN (01:41)
[2021-02-14] MEDS: Pepcid 20 MG VIAL IV SCH ×2 (02:17→10:27)
[2021-02-14 05:39] LABS: Absolute Neutrophil Ct (ANC) 2.85 (1.4-6.9); BASOPHIL % 0.3 % (0.0-0.4); Basophil (Absolute #) 0.02 (0-0.4); Eosinophil % 1.3 % (0.00-5.0); Eosinophil (Absolute #) 0.09 (0-0.5); Hematocrit 38.4 % (35-47); Hemoglobin 12.9 gm/dl (12.0-16.0); Lymphocyte (Absolute #) 3.58 (1.0-4.6); Lymphocytes % 50.9 % (24.0-44.0); Mean Cell Volume 89.1 fl (78-100); Mean Corpuscular Hemoglobin 29.9 pg (26-32); Mean Corpuscular Hgb Concent. 33.6 g/dl (32-36); Mean Platelet Volume 12.7 fl (7.5-11.0); Monocyte (Absolute #) 0.49 (0.0-1.3); Neutrophil % 40.5 % (36.0-66.0); Platelet Count 143 K/mm3 (150-450); Red Blood Count 4.31 M/mm3 (4.1-5.4); Red Cell Distribution Width 12.2 % (11.5-14.0)
[2021-02-14 06:05] LABS: ALBUMIN 3.7 g/dL (3.5-5.0); ALKALINE PHOSPHATASE 57 U/L (38-126); ANION GAP 12.6 MEQ/L (5-15); BLOOD UREA NITROGEN 12 mg/dL (7-17); CHLORIDE 99 mmol/L (98-107); Calcium 9.6 mg/dL (8.4-10.2); Carbon Dioxide 27 mmol/L (22-30); Cholesterol 155 mg/dL (50-200); EST GLOMERULAR FILTRATION RATE > 60.0 ML/MIN; Glucose 110 mg/dL (74-106); HDL CHOLESTEROL 44 mg/dL (40-60); LDL, DIRECT 79 mg/dL (30-100); Potassium 3.6 mmol/L (3.5-5.1); Risk Ratio 3.5; SGOT/AST 38 U/L (14-36); SGPT/ALT 32 U/L (0-35); SODIUM 135 mmol/L (137-145); TRIGLYCERIDE 110 mg/dL (30-150); Total Protein 6.2 g/dL (6.3-8.2)
[2021-02-14 19:53] VITALS: BP 104/57; PULSE 83; O2SAT 95
--- NOTE | 2021-02-14 20:05 | PCM.DCORD ---
- Discharge Disposition: Home, Self-Care Condition: Stable Prescriptions: New Cephalexin Mh 250 mg [Keflex 250 mg] 0 mg PO TID #15 capsule Clopidogrel Bisulfate 75 mg [PLAVIX 75 MG Tablet] 75 mg PO DAILY #30 tablet Continue ALPRAZolam 1 MG [Xanax 1 mg] 1 mg PO BID #0 Metformin HCl 1000 mg [Glucophage 1000 MG] 1,000 mg PO BID #0 Spironolact/Hydrochlorothiazid [Spironolactone-Hctz 25-25 Tab] 1 each PO DAILY Magnesium Oxide 400 mg [Mag-Ox 400] 400 mg PO BID Ropinirole HCl 0.25 mg PO DAILY Potassium Chloride 20 Meq [Klor-Con 20 MEQ] 20 meq PO BID Escitalopram Oxalate 20 mg PO DAILY Pravastatin Sodium 40 mg PO DAILY Tizanidine HCl [Zanaflex] 1 - 2 tab PO HS Cetirizine HCl [Zyrtec] 10 mg PO DAILY Furosemide 40 mg [Lasix 40 MG] 60 mg PO DAILY Sacubitril/Valsartan [Entresto 24 mg-26 mg Tablet] 1 each PO DAILY Aspirin [Aspirin EC] 81 mg PO DAILY #30 tablet. Ropinirole HCl 0.5 mg PO HS Follow up with: NOEMY SANCHEZ [Primary Care Provider] -
--- NOTE | 2021-02-14 20:13 | PCM.SSS ---
History of Present Illness - Chief Complaint Chief Complaint: Strokelike symptoms History of Present Illness: is a 75 year old female with HTN,Hx Viral cardiomyopathy with pacemaker,DM2 who presented to ER with c/o difficulty word finding and headache. No other neurologic symptoms. Symptoms resolved in ER. CT Head showed old lacunar infarct,no acute changes. No studies with contast due to severe allergy. No MRI due to pacemaker.Patient was admitted to Med Surg for observation. - Review of Systems Constitutional: No Symptoms Eyes: No Symptoms Ears, Nose, & Throat: No Symptoms Respiratory: No Symptoms Cardiac: No Symptoms Abdominal/Gastrointestinal: No Symptoms Genitourinary Symptoms: No Symptoms Musculoskeletal: No Symptoms Skin: No Symptoms Neurological: Headache, Other (see HPI) Endocrine: No Symptoms Hematologic/Lymphatic: No Symptoms Immunological/Allergic: No Symptoms Medications & Allergies Home Medications: Home Medication List ALPRAZolam 1 MG [Xanax 1 mg] 1 mg PO BID #0 02/10/12 [History Confirmed 02/13/21] Metformin HCl 1000 mg [Glucophage 1000 MG] 1,000 mg PO BID #0 02/10/12 [History Confirmed 02/13/21] Cetirizine HCl [Zyrtec] 10 mg PO DAILY 07/14/16 [History Confirmed 02/13/21] Escitalopram Oxalate 20 mg PO DAILY 07/14/16 [History Confirmed 02/13/21] Furosemide 40 mg [Lasix 40 MG] 60 mg PO DAILY 07/14/16 [History Confirmed 02/13/21] Magnesium Oxide 400 mg [Mag-Ox 400] 400 mg PO BID 07/14/16 [History Confirmed 02/13/21] Potassium Chloride 20 Meq [Klor-Con 20 MEQ] 20 meq PO BID 07/14/16 [History Confirmed 02/14/21] Pravastatin Sodium 40 mg PO DAILY 07/14/16 [History Confirmed 02/13/21] Ropinirole HCl 0.25 mg PO DAILY 07/14/16 [History Confirmed 02/14/21] Sacubitril/Valsartan [Entresto 24 mg-26 mg Tablet] 1 each PO DAILY 07/14/16 [History Confirmed 02/14/21] Spironolact/Hydrochlorothiazid [Spironolactone-Hctz 25-25 Tab] 1 each PO DAILY 07/14/16 [History Confirmed 02/13/21] Tizanidine HCl [Zanaflex] 1 - 2 tab PO HS 07/14/16 [History Confirmed 02/14/21] Aspirin [Aspirin EC] 81 mg PO DAILY #30 tablet. 07/15/16 [Rx Confirmed 02/13/21] Cephalexin Mh 250 mg [Keflex 250 mg] 0 mg PO TID #15 capsule 02/14/21 [Rx] Clopidogrel Bisulfate 75 mg [PLAVIX 75 MG Tablet] 75 mg PO DAILY #30 tablet 02/14/21 [Rx] Ropinirole HCl 0.5 mg PO HS 02/14/21 [History Confirmed 02/14/21] Allergies/Adverse Reactions: Allergies Allergy/AdvReac Type Severity Reaction Status Date / Time iopamidol [From Isovue-M] Allergy Severe Verified 02/13/21 20:25 morphine AdvReac Severe BEHAVIOR Verified 02/13/21 20:25 - Past Medical History Past Medical History: Yes Neurological History: TIA ENT History: Cataracts Cardiac History: Arrhythmia, Hypertension, Myocardial Infarction ([place]) Respiratory History: No Pertinent History Endocrine Medical History: Diabetes Type II Musculoskelatal History: Other GI Medical History: No Pertinent History, Other History: No Pertinent History Pyscho-Social History: Anxiety, Depression Reproductive Disorders: No Pertinent History Comment: TYPE IDDM, CARDIOMYOPATHY AND HAS PACEMAKER, DEFIBRILLATOR; PT. REPORTS SHE HAS FREQUENT "HIP PN" AND NECK PN. PT. REPORTS SHE DOES HAVE SOME DYSPNEA ON EXERTION. - Female History Hx Last Menstrual Period: POST Are you now?: No - Past Surgical History Past Surgical History: Yes Neuro Surgical History: No Pertinent History Cardiac History: Cardiac Catheterization, Internal Defibrillator, Pacemaker Respiratory Surgery: No Pertinent History GI Surgical History: No Pertinent History Genitourinary Surgical Hx: No Pertinent History Musculskeletal Surgical Hx: No Pertinent History Female Surgical History: Hysterectomy - Social History Smoking Status: Current every day smoker Exposure to second hand smoke: Yes Alcohol: None Drug Use: none - Physical Exam Vital Signs: Vital Signs - 24 hr Temp Pulse Resp BP Pulse Ox 02/14/21 19:52 98.3 F 83 18 104/57 95 02/14/21 16:00 97.4 F 78 12 129/63 92 L 02/14/21 12:00 97.2 F 87 16 96/53 96 02/14/21 08:00 98.0 F 78 12 106/59 95 02/14/21 04:00 97.9 F 78 18 89/54 95 02/14/21 01:53 97.8 F 84 18 150/55 96 02/14/21 01:00 97.7 F 88 18 120/70 98 02/14/21 00:01 98 02/14/21 00:00 88 18 120/70 98 02/13/21 23:07 91 H 18 114/75 98 02/13/21 22:25 91 H 18 121/67 100 02/13/21 21:34 89 16 124/78 97 02/13/21 20:17 97.7 F 102 H 18 131/79 98 General Appearance: anxiety Neurologic Exam: alert, oriented x 3, cooperative, 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 nml as tested, normal mood/affect, nml cerebellar function, nml station & gait, sensation nml Eye Exam: eyes nml inspection Ears, Nose, Throat Exam: normal ENT inspection Neck Exam: normal inspection Respiratory Exam: normal breath sounds Cardiovascular Exam: regular rate/rhythm Gastrointestinal/Abdomen Exam: soft, normal bowel sounds Pelvic Exam: not done Rectal Exam: not done Back Exam: normal inspection Extremity Exam: normal inspection Skin Exam: normal color Results - Labs Lab/Micro Results: Lab Results-Last 24 Hours 02/13/21 02/13/21 02/13/21 Range/Units 20:27 20:55 20:55 WBC 7.5 (4.0-10.5) K/mm3 RBC 4.86 (4.1-5.4) M/mm3 Hgb 14.5 (12.0-16.0) gm/dl Hct 42.8 (35-47) % MCV 88.1 (78-100) fl MCH 29.8 (26-32) pg MCHC 33.9 (32-36) g/dl RDW 12.5 (11.5-14.0) % Plt Count 140 L (150-450) K/mm3 MPV 13.7 H (7.5-11.0) fl Gran % 41.7 (36.0-66.0) % Eos # (Auto) 0.10 (0-0.5) Absolute Lymphs (auto) 3.71 (1.0-4.6) Absolute Monos (auto) 0.52 (0.0-1.3) Lymphocytes % 49.7 H (24.0-44.0) % Monocytes % 7.0 (0.0-12.0) % Eosinophils % 1.3 (0.00-5.0) % Basophils % 0.3 (0.0-0.4) % Absolute Granulocytes 3.11 (1.4-6.9) Basophils # 0.02 (0-0.4) Sodium (137-145) mmol/L Potassium (3.5-5.1) mmol/L Chloride (98-107) mmol/L Carbon Dioxide (22-30) mmol/L Anion Gap (5-15) MEQ/L BUN (7-17) mg/dL Creatinine (0.52-1.04) mg/dL Estimated GFR ML/MIN Glucose (74-106) mg/dL POC Glucometer (74 to 106) mg/dL Lactic Acid 1.9 (0.4-2.0) Calcium (8.4-10.2) mg/dL Total Bilirubin (0.2-1.3) mg/dL AST (14-36) U/L ALT (0-35) U/L Alkaline Phosphatase (38-126) U/L Troponin I (0.000-0.034) ng/mL Serum Total Protein (6.3-8.2) g/dL Albumin (3.5-5.0) g/dL Triglycerides (30-150) mg/dL Cholesterol (50-200) mg/dL LDL Cholesterol (30-100) mg/dL HDL Cholesterol (40-60) mg/dL Heart Disease Risk Ratio Urine Color YELLOW (YELLOW) Urine Appearance CLEAR (CLEAR) Urine pH 5.0 (5-6) Ur Specific [place] 1.016 (1.005-1.025) Urine Protein NEGATIVE (Negative) Urine Ketones NEGATIVE (NEGATIVE) Urine Blood NEGATIVE (0-5) Jorge/ul Urine Nitrite NEGATIVE (NEGATIVE) Urine Bilirubin NEGATIVE (NEGATIVE) Urine Urobilinogen 4 (0-1) mg/dL Ur Leukocyte Esterase LARGE (NEGATIVE) Urine WBC (Auto) 6-10 (0-5) /HPF Urine RBC (Auto) 0-2 (0-2) /HPF U Epithel Cells (Auto) NONE (FEW) /HPF Urine Bacteria (Auto) NONE (NEGATIVE) /HPF Urine Mucus (Auto) SLIGHT (NEGATIVE) /HPF Urine Culture Reflexed NO (NO) Urine Glucose NEGATIVE (NEGATIVE) mg/dL SARS-CoV-2 (PCR) (NEGATIVE) 02/13/21 02/13/21 02/13/21 Range/Units 20:55 21:14 22:30 WBC (4.0-10.5) K/mm3 RBC (4.1-5.4) M/mm3 Hgb (12.0-16.0) gm/dl Hct (35-47) % MCV (78-100) fl MCH (26-32) pg MCHC (32-36) g/dl RDW (11.5-14.0) % Plt Count (150-450) K/mm3 MPV (7.5-11.0) fl Gran % (36.0-66.0) % Eos # (Auto) (0-0.5) Absolute Lymphs (auto) (1.0-4.6) Absolute Monos (auto) (0.0-1.3) Lymphocytes % (24.0-44.0) % Monocytes % (0.0-12.0) % Eosinophils % (0.00-5.0) % Basophils % (0.0-0.4) % Absolute Granulocytes (1.4-6.9) Basophils # (0-0.4) Sodium 136 L (137-145) mmol/L Potassium 4.1 (3.5-5.1) mmol/L Chloride 95 L (98-107) mmol/L Carbon Dioxide 30 (22-30) mmol/L Anion Gap 15.5 H (5-15) MEQ/L BUN 14 (7-17) mg/dL Creatinine 1.00 (0.52-1.04) mg/dL Estimated GFR 57.6 ML/MIN Glucose 157 H (74-106) mg/dL POC Glucometer (74 to 106) mg/dL Lactic Acid (0.4-2.0) Calcium 9.6 (8.4-10.2) mg/dL Total Bilirubin 0.40 (0.2-1.3) mg/dL AST 50 H (14-36) U/L ALT 40 H (0-35) U/L Alkaline Phosphatase 65 (38-126) U/L Troponin I < 0.012 (0.000-0.034) ng/mL Serum Total Protein 7.6 (6.3-8.2) g/dL Albumin 4.5 (3.5-5.0) g/dL Triglycerides (30-150) mg/dL Cholesterol (50-200) mg/dL LDL Cholesterol (30-100) mg/dL HDL Cholesterol (40-60) mg/dL Heart Disease Risk Ratio Urine Color (YELLOW) Urine Appearance (CLEAR) Urine pH (5-6) Ur Specific [place] (1.005-1.025) Urine Protein (Negative) Urine Ketones (NEGATIVE) Urine Blood (0-5) Jorge/ul Urine Nitrite (NEGATIVE) Urine Bilirubin (NEGATIVE) Urine Urobilinogen (0-1) mg/dL Ur Leukocyte Esterase (NEGATIVE) Urine WBC (Auto) (0-5) /HPF Urine RBC (Auto) (0-2) /HPF U Epithel Cells (Auto) (FEW) /HPF Urine Bacteria (Auto) (NEGATIVE) /HPF Urine Mucus (Auto) (NEGATIVE) /HPF Urine Culture Reflexed (NO) Urine Glucose (NEGATIVE) mg/dL SARS-CoV-2 (PCR) NEGATIVE (NEGATIVE) 02/13/21 02/14/21 02/14/21 Range/Units 23:15 02:30 05:30 WBC (4.0-10.5) K/mm3 RBC (4.1-5.4) M/mm3 Hgb (12.0-16.0) gm/dl Hct (35-47) % MCV (78-100) fl MCH (26-32) pg MCHC (32-36) g/dl RDW (11.5-14.0) % Plt Count (150-450) K/mm3 MPV (7.5-11.0) fl Gran % (36.0-66.0) % Eos # (Auto) (0-0.5) Absolute Lymphs (auto) (1.0-4.6) Absolute Monos (auto) (0.0-1.3) Lymphocytes % (24.0-44.0) % Monocytes % (0.0-12.0) % Eosinophils % (0.00-5.0) % Basophils % (0.0-0.4) % Absolute Granulocytes (1.4-6.9) Basophils # (0-0.4) Sodium (137-145) mmol/L Potassium (3.5-5.1) mmol/L Chloride (98-107) mmol/L Carbon Dioxide (22-30) mmol/L Anion Gap (5-15) MEQ/L BUN (7-17) mg/dL Creatinine (0.52-1.04) mg/dL Estimated GFR ML/MIN Glucose (74-106) mg/dL POC Glucometer (74 to 106) mg/dL Lactic Acid (0.4-2.0) Calcium (8.4-10.2) mg/dL Total Bilirubin (0.2-1.3) mg/dL AST (14-36) U/L ALT (0-35) U/L Alkaline Phosphatase (38-126) U/L Troponin I < 0.012 < 0.012 < 0.012 (0.000-0.034) ng/mL Serum Total Protein (6.3-8.2) g/dL Albumin (3.5-5.0) g/dL Triglycerides (30-150) mg/dL Cholesterol (50-200) mg/dL LDL Cholesterol (30-100) mg/dL HDL Cholesterol (40-60) mg/dL Heart Disease Risk Ratio Urine Color (YELLOW) Urine Appearance (CLEAR) Urine pH (5-6) Ur Specific [place] (1.005-1.025) Urine Protein (Negative) Urine Ketones (NEGATIVE) Urine Blood (0-5) Jorge/ul Urine Nitrite (NEGATIVE) Urine Bilirubin (NEGATIVE) Urine Urobilinogen (0-1) mg/dL Ur Leukocyte Esterase (NEGATIVE) Urine WBC (Auto) (0-5) /HPF Urine RBC (Auto) (0-2) /HPF U Epithel Cells (Auto) (FEW) /HPF Urine Bacteria (Auto) (NEGATIVE) /HPF Urine Mucus (Auto) (NEGATIVE) /HPF Urine Culture Reflexed (NO) Urine Glucose (NEGATIVE) mg/dL SARS-CoV-2 (PCR) (NEGATIVE) 02/14/21 02/14/21 02/14/21 Range/Units 05:30 05:30 07:08 WBC 7.0 (4.0-10.5) K/mm3 RBC 4.31 (4.1-5.4) M/mm3 Hgb 12.9 (12.0-16.0) gm/dl Hct 38.4 (35-47) % MCV 89.1 (78-100) fl MCH 29.9 (26-32) pg MCHC 33.6 (32-36) g/dl RDW 12.2 (11.5-14.0) % Plt Count 143 L (150-450) K/mm3 MPV 12.7 H (7.5-11.0) fl Gran % 40.5 (36.0-66.0) % Eos # (Auto) 0.09 (0-0.5) Absolute Lymphs (auto) 3.58 (1.0-4.6) Absolute Monos (auto) 0.49 (0.0-1.3) Lymphocytes % 50.9 H (24.0-44.0) % Monocytes % 7.0 (0.0-12.0) % Eosinophils % 1.3 (0.00-5.0) % Basophils % 0.3 (0.0-0.4) % Absolute Granulocytes 2.85 (1.4-6.9) Basophils # 0.02 (0-0.4) Sodium 135 L (137-145) mmol/L Potassium 3.6 (3.5-5.1) mmol/L Chloride 99 (98-107) mmol/L Carbon Dioxide 27 (22-30) mmol/L Anion Gap 12.6 (5-15) MEQ/L BUN 12 (7-17) mg/dL Creatinine 0.90 (0.52-1.04) mg/dL Estimated GFR > 60.0 ML/MIN Glucose 110 H (74-106) mg/dL POC Glucometer (74 to 106) mg/dL Lactic Acid (0.4-2.0) Calcium 9.6 (8.4-10.2) mg/dL Total Bilirubin 0.20 (0.2-1.3) mg/dL AST 38 H (14-36) U/L ALT 32 (0-35) U/L Alkaline Phosphatase 57 (38-126) U/L Troponin I < 0.012 (0.000-0.034) ng/mL Serum Total Protein 6.2 L (6.3-8.2) g/dL Albumin 3.7 (3.5-5.0) g/dL Triglycerides 110 (30-150) mg/dL Cholesterol 155 (50-200) mg/dL LDL Cholesterol 79 (30-100) mg/dL HDL Cholesterol 44 (40-60) mg/dL Heart Disease Risk Ratio 3.5 Urine Color (YELLOW) Urine Appearance (CLEAR) Urine pH (5-6) Ur Specific [place] (1.005-1.025) Urine Protein (Negative) Urine Ketones (NEGATIVE) Urine Blood (0-5) Jorge/ul Urine Nitrite (NEGATIVE) Urine Bilirubin (NEGATIVE) Urine Urobilinogen (0-1) mg/dL Ur Leukocyte Esterase (NEGATIVE) Urine WBC (Auto) (0-5) /HPF Urine RBC (Auto) (0-2) /HPF U Epithel Cells (Auto) (FEW) /HPF Urine Bacteria (Auto) (NEGATIVE) /HPF Urine Mucus (Auto) (NEGATIVE) /HPF Urine Culture Reflexed (NO) Urine Glucose (NEGATIVE) mg/dL SARS-CoV-2 (PCR) (NEGATIVE) 02/14/21 02/14/21 02/14/21 Range/Units 07:49 11:47 16:08 WBC (4.0-10.5) K/mm3 RBC (4.1-5.4) M/mm3 Hgb (12.0-16.0) gm/dl Hct (35-47) % MCV (78-100) fl MCH (26-32) pg MCHC (32-36) g/dl RDW (11.5-14.0) % Plt Count (150-450) K/mm3 MPV (7.5-11.0) fl Gran % (36.0-66.0) % Eos # (Auto) (0-0.5) Absolute Lymphs (auto) (1.0-4.6) Absolute Monos (auto) (0.0-1.3) Lymphocytes % (24.0-44.0) % Monocytes % (0.0-12.0) % Eosinophils % (0.00-5.0) % Basophils % (0.0-0.4) % Absolute Granulocytes (1.4-6.9) Basophils # (0-0.4) Sodium (137-145) mmol/L Potassium (3.5-5.1) mmol/L Chloride (98-107) mmol/L Carbon Dioxide (22-30) mmol/L Anion Gap (5-15) MEQ/L BUN (7-17) mg/dL Creatinine (0.52-1.04) mg/dL Estimated GFR ML/MIN Glucose (74-106) mg/dL POC Glucometer 113 H 110 H 129 H (74 to 106) mg/dL Lactic Acid (0.4-2.0) Calcium (8.4-10.2) mg/dL Total Bilirubin (0.2-1.3) mg/dL AST (14-36) U/L ALT (0-35) U/L Alkaline Phosphatase (38-126) U/L Troponin I (0.000-0.034) ng/mL Serum Total Protein (6.3-8.2) g/dL Albumin (3.5-5.0) g/dL Triglycerides (30-150) mg/dL Cholesterol (50-200) mg/dL LDL Cholesterol (30-100) mg/dL HDL Cholesterol (40-60) mg/dL Heart Disease Risk Ratio Urine Color (YELLOW) Urine Appearance (CLEAR) Urine pH (5-6) Ur Specific [place] (1.005-1.025) Urine Protein (Negative) Urine Ketones (NEGATIVE) Urine Blood (0-5) Jorge/ul Urine Nitrite (NEGATIVE) Urine Bilirubin (NEGATIVE) Urine Urobilinogen (0-1) mg/dL Ur Leukocyte Esterase (NEGATIVE) Urine WBC (Auto) (0-5) /HPF Urine RBC (Auto) (0-2) /HPF U Epithel Cells (Auto) (FEW) /HPF Urine Bacteria (Auto) (NEGATIVE) /HPF Urine Mucus (Auto) (NEGATIVE) /HPF Urine Culture Reflexed (NO) Urine Glucose (NEGATIVE) mg/dL SARS-CoV-2 (PCR) (NEGATIVE) - Radiology Impressions Radiology Exams & Impressions: Radiology Procedures Category Date Time Status CAROTID BILATERAL [US] Stat Exams 02/14/21 01:41 Taken CHEST 1 VIEW (PORTABLE) Stat Exams 02/13/21 20:27 Completed ECHO W/2D AND DOPPLER [US] Stat Exams 02/14/21 01:41 Taken HEAD WITHOUT CONTRAST [CT] Stat Exams 02/13/21 20:27 Taken Assessment/Plan (1) TIA (transient ischemic attack) Status: Resolved Assessment & Plan: Trouble word finding,resolved before admission. Code(s): G45.9 - TRANSIENT CEREBRAL ISCHEMIC ATTACK, UNSPECIFIED (2) Cardiomyopathy Status: Chronic Qualifiers: Cardiomyopathy type: viral Qualified Code(s): B33.24 - Viral cardiomyopathy Code(s): I42.9 - CARDIOMYOPATHY, UNSPECIFIED (3) HTN (hypertension) Status: Chronic Code(s): I10 - ESSENTIAL (PRIMARY) HYPERTENSION (4) DM2 (diabetes mellitus, type 2) Status: Chronic Hospital Summary - Hospital Course Hospital Course: see HPI. Symptom of difficulty word finding resolved before admission to Med surg.Started on Plavix . 48 hour Holter moniter to be done as outpatient.Will follow up with PCP and Neurology. - Vitals & Intake/Output Vital Signs: Vital Signs Temperature 98.3 F 02/14/21 19:52 Pulse Rate 83 02/14/21 19:52 Respiratory Rate 18 02/14/21 19:52 Blood Pressure 104/57 02/14/21 19:52 O2 Sat by Pulse Oximetry 95 02/14/21 19:52 Intake & Output: Intake & Output 02/12/21 02/13/21 02/14/21 02/15/21 11:59 11:59 11:59 11:59 Intake Total 340 480 Output Total 200 Balance 140 480 Weight 68.7 kg 68.7 kg - Lab Result Diagrams: 02/14/21 05:30 02/14/21 05:30 Lab Results-Last 24 Hrs: Lab Results-Last 24 Hours 02/13/21 02/13/21 02/13/21 Range/Units 20:27 20:55 20:55 WBC 7.5 (4.0-10.5) K/mm3 RBC 4.86 (4.1-5.4) M/mm3 Hgb 14.5 (12.0-16.0) gm/dl Hct 42.8 (35-47) % MCV 88.1 (78-100) fl MCH 29.8 (26-32) pg MCHC 33.9 (32-36) g/dl RDW 12.5 (11.5-14.0) % Plt Count 140 L (150-450) K/mm3 MPV 13.7 H (7.5-11.0) fl Gran % 41.7 (36.0-66.0) % Eos # (Auto) 0.10 (0-0.5) Absolute Lymphs (auto) 3.71 (1.0-4.6) Absolute Monos (auto) 0.52 (0.0-1.3) Lymphocytes % 49.7 H (24.0-44.0) % Monocytes % 7.0 (0.0-12.0) % Eosinophils % 1.3 (0.00-5.0) % Basophils % 0.3 (0.0-0.4) % Absolute Granulocytes 3.11 (1.4-6.9) Basophils # 0.02 (0-0.4) Sodium (137-145) mmol/L Potassium (3.5-5.1) mmol/L Chloride (98-107) mmol/L Carbon Dioxide (22-30) mmol/L Anion Gap (5-15) MEQ/L BUN (7-17) mg/dL Creatinine (0.52-1.04) mg/dL Estimated GFR ML/MIN Glucose (74-106) mg/dL POC Glucometer (74 to 106) mg/dL Lactic Acid 1.9 (0.4-2.0) Calcium (8.4-10.2) mg/dL Total Bilirubin (0.2-1.3) mg/dL AST (14-36) U/L ALT (0-35) U/L Alkaline Phosphatase (38-126) U/L Troponin I (0.000-0.034) ng/mL Serum Total Protein (6.3-8.2) g/dL Albumin (3.5-5.0) g/dL Triglycerides (30-150) mg/dL Cholesterol (50-200) mg/dL LDL Cholesterol (30-100) mg/dL HDL Cholesterol (40-60) mg/dL Heart Disease Risk Ratio Urine Color YELLOW (YELLOW) Urine Appearance CLEAR (CLEAR) Urine pH 5.0 (5-6) Ur Specific [place] 1.016 (1.005-1.025) Urine Protein NEGATIVE (Negative) Urine Ketones NEGATIVE (NEGATIVE) Urine Blood NEGATIVE (0-5) Jorge/ul Urine Nitrite NEGATIVE (NEGATIVE) Urine Bilirubin NEGATIVE (NEGATIVE) Urine Urobilinogen 4 (0-1) mg/dL Ur Leukocyte Esterase LARGE (NEGATIVE) Urine WBC (Auto) 6-10 (0-5) /HPF Urine RBC (Auto) 0-2 (0-2) /HPF U Epithel Cells (Auto) NONE (FEW) /HPF Urine Bacteria (Auto) NONE (NEGATIVE) /HPF Urine Mucus (Auto) SLIGHT (NEGATIVE) /HPF Urine Culture Reflexed NO (NO) Urine Glucose NEGATIVE (NEGATIVE) mg/dL SARS-CoV-2 (PCR) (NEGATIVE) 02/13/21 02/13/21 02/13/21 Range/Units 20:55 21:14 22:30 WBC (4.0-10.5) K/mm3 RBC (4.1-5.4) M/mm3 Hgb (12.0-16.0) gm/dl Hct (35-47) % MCV (78-100) fl MCH (26-32) pg MCHC (32-36) g/dl RDW (11.5-14.0) % Plt Count (150-450) K/mm3 MPV (7.5-11.0) fl Gran % (36.0-66.0) % Eos # (Auto) (0-0.5) Absolute Lymphs (auto) (1.0-4.6) Absolute Monos (auto) (0.0-1.3) Lymphocytes % (24.0-44.0) % Monocytes % (0.0-12.0) % Eosinophils % (0.00-5.0) % Basophils % (0.0-0.4) % Absolute Granulocytes (1.4-6.9) Basophils # (0-0.4) Sodium 136 L (137-145) mmol/L Potassium 4.1 (3.5-5.1) mmol/L Chloride 95 L (98-107) mmol/L Carbon Dioxide 30 (22-30) mmol/L Anion Gap 15.5 H (5-15) MEQ/L BUN 14 (7-17) mg/dL Creatinine 1.00 (0.52-1.04) mg/dL Estimated GFR 57.6 ML/MIN Glucose 157 H (74-106) mg/dL POC Glucometer (74 to 106) mg/dL Lactic Acid (0.4-2.0) Calcium 9.6 (8.4-10.2) mg/dL Total Bilirubin 0.40 (0.2-1.3) mg/dL AST 50 H (14-36) U/L ALT 40 H (0-35) U/L Alkaline Phosphatase 65 (38-126) U/L Troponin I < 0.012 (0.000-0.034) ng/mL Serum Total Protein 7.6 (6.3-8.2) g/dL Albumin 4.5 (3.5-5.0) g/dL Triglycerides (30-150) mg/dL Cholesterol (50-200) mg/dL LDL Cholesterol (30-100) mg/dL HDL Cholesterol (40-60) mg/dL Heart Disease Risk Ratio Urine Color (YELLOW) Urine Appearance (CLEAR) Urine pH (5-6) Ur Specific [place] (1.005-1.025) Urine Protein (Negative) Urine Ketones (NEGATIVE) Urine Blood (0-5) Jorge/ul Urine Nitrite (NEGATIVE) Urine Bilirubin (NEGATIVE) Urine Urobilinogen (0-1) mg/dL Ur Leukocyte Esterase (NEGATIVE) Urine WBC (Auto) (0-5) /HPF Urine RBC (Auto) (0-2) /HPF U Epithel Cells (Auto) (FEW) /HPF Urine Bacteria (Auto) (NEGATIVE) /HPF Urine Mucus (Auto) (NEGATIVE) /HPF Urine Culture Reflexed (NO) Urine Glucose (NEGATIVE) mg/dL SARS-CoV-2 (PCR) NEGATIVE (NEGATIVE) 02/13/21 02/14/21 02/14/21 Range/Units 23:15 02:30 05:30 WBC (4.0-10.5) K/mm3 RBC (4.1-5.4) M/mm3 Hgb (12.0-16.0) gm/dl Hct (35-47) % MCV (78-100) fl MCH (26-32) pg MCHC (32-36) g/dl RDW (11.5-14.0) % Plt Count (150-450) K/mm3 MPV (7.5-11.0) fl Gran % (36.0-66.0) % Eos # (Auto) (0-0.5) Absolute Lymphs (auto) (1.0-4.6) Absolute Monos (auto) (0.0-1.3) Lymphocytes % (24.0-44.0) % Monocytes % (0.0-12.0) % Eosinophils % (0.00-5.0) % Basophils % (0.0-0.4) % Absolute Granulocytes (1.4-6.9) Basophils # (0-0.4) Sodium (137-145) mmol/L Potassium (3.5-5.1) mmol/L Chloride (98-107) mmol/L Carbon Dioxide (22-30) mmol/L Anion Gap (5-15) MEQ/L BUN (7-17) mg/dL Creatinine (0.52-1.04) mg/dL Estimated GFR ML/MIN Glucose (74-106) mg/dL POC Glucometer (74 to 106) mg/dL Lactic Acid (0.4-2.0) Calcium (8.4-10.2) mg/dL Total Bilirubin (0.2-1.3) mg/dL AST (14-36) U/L ALT (0-35) U/L Alkaline Phosphatase (38-126) U/L Troponin I < 0.012 < 0.012 < 0.012 (0.000-0.034) ng/mL Serum Total Protein (6.3-8.2) g/dL Albumin (3.5-5.0) g/dL Triglycerides (30-150) mg/dL Cholesterol (50-200) mg/dL LDL Cholesterol (30-100) mg/dL HDL Cholesterol (40-60) mg/dL Heart Disease Risk Ratio Urine Color (YELLOW) Urine Appearance (CLEAR) Urine pH (5-6) Ur Specific [place] (1.005-1.025) Urine Protein (Negative) Urine Ketones (NEGATIVE) Urine Blood (0-5) Jorge/ul Urine Nitrite (NEGATIVE) Urine Bilirubin (NEGATIVE) Urine Urobilinogen (0-1) mg/dL Ur Leukocyte Esterase (NEGATIVE) Urine WBC (Auto) (0-5) /HPF Urine RBC (Auto) (0-2) /HPF U Epithel Cells (Auto) (FEW) /HPF Urine Bacteria (Auto) (NEGATIVE) /HPF Urine Mucus (Auto) (NEGATIVE) /HPF Urine Culture Reflexed (NO) Urine Glucose (NEGATIVE) mg/dL SARS-CoV-2 (PCR) (NEGATIVE) 02/14/21 02/14/21 02/14/21 Range/Units 05:30 05:30 07:08 WBC 7.0 (4.0-10.5) K/mm3 RBC 4.31 (4.1-5.4) M/mm3 Hgb 12.9 (12.0-16.0) gm/dl Hct 38.4 (35-47) % MCV 89.1 (78-100) fl MCH 29.9 (26-32) pg MCHC 33.6 (32-36) g/dl RDW 12.2 (11.5-14.0) % Plt Count 143 L (150-450) K/mm3 MPV 12.7 H (7.5-11.0) fl Gran % 40.5 (36.0-66.0) % Eos # (Auto) 0.09 (0-0.5) Absolute Lymphs (auto) 3.58 (1.0-4.6) Absolute Monos (auto) 0.49 (0.0-1.3) Lymphocytes % 50.9 H (24.0-44.0) % Monocytes % 7.0 (0.0-12.0) % Eosinophils % 1.3 (0.00-5.0) % Basophils % 0.3 (0.0-0.4) % Absolute Granulocytes 2.85 (1.4-6.9) Basophils # 0.02 (0-0.4) Sodium 135 L (137-145) mmol/L Potassium 3.6 (3.5-5.1) mmol/L Chloride 99 (98-107) mmol/L Carbon Dioxide 27 (22-30) mmol/L Anion Gap 12.6 (5-15) MEQ/L BUN 12 (7-17) mg/dL Creatinine 0.90 (0.52-1.04) mg/dL Estimated GFR > 60.0 ML/MIN Glucose 110 H (74-106) mg/dL POC Glucometer (74 to 106) mg/dL Lactic Acid (0.4-2.0) Calcium 9.6 (8.4-10.2) mg/dL Total Bilirubin 0.20 (0.2-1.3) mg/dL AST 38 H (14-36) U/L ALT 32 (0-35) U/L Alkaline Phosphatase 57 (38-126) U/L Troponin I < 0.012 (0.000-0.034) ng/mL Serum Total Protein 6.2 L (6.3-8.2) g/dL Albumin 3.7 (3.5-5.0) g/dL Triglycerides 110 (30-150) mg/dL Cholesterol 155 (50-200) mg/dL LDL Cholesterol 79 (30-100) mg/dL HDL Cholesterol 44 (40-60) mg/dL Heart Disease Risk Ratio 3.5 Urine Color (YELLOW) Urine Appearance (CLEAR) Urine pH (5-6) Ur Specific [place] (1.005-1.025) Urine Protein (Negative) Urine Ketones (NEGATIVE) Urine Blood (0-5) Jorge/ul Urine Nitrite (NEGATIVE) Urine Bilirubin (NEGATIVE) Urine Urobilinogen (0-1) mg/dL Ur Leukocyte Esterase (NEGATIVE) Urine WBC (Auto) (0-5) /HPF Urine RBC (Auto) (0-2) /HPF U Epithel Cells (Auto) (FEW) /HPF Urine Bacteria (Auto) (NEGATIVE) /HPF Urine Mucus (Auto) (NEGATIVE) /HPF Urine Culture Reflexed (NO) Urine Glucose (NEGATIVE) mg/dL SARS-CoV-2 (PCR) (NEGATIVE) 02/14/21 02/14/21 02/14/21 Range/Units 07:49 11:47 16:08 WBC (4.0-10.5) K/mm3 RBC (4.1-5.4) M/mm3 Hgb (12.0-16.0) gm/dl Hct (35-47) % MCV (78-100) fl MCH (26-32) pg MCHC (32-36) g/dl RDW (11.5-14.0) % Plt Count (150-450) K/mm3 MPV (7.5-11.0) fl Gran % (36.0-66.0) % Eos # (Auto) (0-0.5) Absolute Lymphs (auto) (1.0-4.6) Absolute Monos (auto) (0.0-1.3) Lymphocytes % (24.0-44.0) % Monocytes % (0.0-12.0) % Eosinophils % (0.00-5.0) % Basophils % (0.0-0.4) % Absolute Granulocytes (1.4-6.9) Basophils # (0-0.4) Sodium (137-145) mmol/L Potassium (3.5-5.1) mmol/L Chloride (98-107) mmol/L Carbon Dioxide (22-30) mmol/L Anion Gap (5-15) MEQ/L BUN (7-17) mg/dL Creatinine (0.52-1.04) mg/dL Estimated GFR ML/MIN Glucose (74-106) mg/dL POC Glucometer 113 H 110 H 129 H (74 to 106) mg/dL Lactic Acid (0.4-2.0) Calcium (8.4-10.2) mg/dL Total Bilirubin (0.2-1.3) mg/dL AST (14-36) U/L ALT (0-35) U/L Alkaline Phosphatase (38-126) U/L Troponin I (0.000-0.034) ng/mL Serum Total Protein (6.3-8.2) g/dL Albumin (3.5-5.0) g/dL Triglycerides (30-150) mg/dL Cholesterol (50-200) mg/dL LDL Cholesterol (30-100) mg/dL HDL Cholesterol (40-60) mg/dL Heart Disease Risk Ratio Urine Color (YELLOW) Urine Appearance (CLEAR) Urine pH (5-6) Ur Specific [place] (1.005-1.025) Urine Protein (Negative) Urine Ketones (NEGATIVE) Urine Blood (0-5) Jorge/ul Urine Nitrite (NEGATIVE) Urine Bilirubin (NEGATIVE) Urine Urobilinogen (0-1) mg/dL Ur Leukocyte Esterase (NEGATIVE) Urine WBC (Auto) (0-5) /HPF Urine RBC (Auto) (0-2) /HPF U Epithel Cells (Auto) (FEW) /HPF Urine Bacteria (Auto) (NEGATIVE) /HPF Urine Mucus (Auto) (NEGATIVE) /HPF Urine Culture Reflexed (NO) Urine Glucose (NEGATIVE) mg/dL SARS-CoV-2 (PCR) (NEGATIVE) - Radiology Exams Ordered Rad Exams-Entire Visit: Radiology Procedures Category Date Time Status CAROTID BILATERAL [US] Stat Exams 02/14/21 01:41 Taken CHEST 1 VIEW (PORTABLE) Stat Exams 02/13/21 20:27 Completed ECHO W/2D AND DOPPLER [US] Stat Exams 02/14/21 01:41 Taken HEAD WITHOUT CONTRAST [CT] Stat Exams 02/13/21 20:27 Taken - Discharge Disposition: Home, Self-Care Condition: Stable Prescriptions: New Cephalexin Mh 250 mg [Keflex 250 mg] 0 mg PO TID #15 capsule Clopidogrel Bisulfate 75 mg [PLAVIX 75 MG Tablet] 75 mg PO DAILY #30 tablet Continue ALPRAZolam 1 MG [Xanax 1 mg] 1 mg PO BID #0 Metformin HCl 1000 mg [Glucophage 1000 MG] 1,000 mg PO BID #0 Spironolact/Hydrochlorothiazid [Spironolactone-Hctz 25-25 Tab] 1 each PO DAILY Magnesium Oxide 400 mg [Mag-Ox 400] 400 mg PO BID Ropinirole HCl 0.25 mg PO DAILY Potassium Chloride 20 Meq [Klor-Con 20 MEQ] 20 meq PO BID Escitalopram Oxalate 20 mg PO DAILY Pravastatin Sodium 40 mg PO DAILY Tizanidine HCl [Zanaflex] 1 - 2 tab PO HS Cetirizine HCl [Zyrtec] 10 mg PO DAILY Furosemide 40 mg [Lasix 40 MG] 60 mg PO DAILY Sacubitril/Valsartan [Entresto 24 mg-26 mg Tablet] 1 each PO DAILY Aspirin [Aspirin EC] 81 mg PO DAILY #30 tablet.dr Rodriguezinirole HCl 0.5 mg PO HS Instructions: Going Home on Blood Thinners , CardioMEMS (DC) Additional Instructions: Dc'd home with 48 hour halter monitor take plavix for 3 weeks along with an 81 milligram asprin daily after 3 weeks discontinue the plavix and continue with the 81 milligram asprin daily follow up with Dr. Randle as needed call with any question or concerns Follow up with: NOEMY RANDLE [Primary Care Provider] -
--- NOTE | 2021-02-14 21:30 | XRAY ---
Exam: CT of the head without IV contrast from 02/13/2021. CTDI: 53.92 mGy Comparison: CT of the head without IV contrast from 07/14/2016. Indication: Stroke-like symptoms, speech difficulty, pain on top of the head, bilateral eye pressure. Technique: Non-IV contrast axial images were obtained through the brain. Reconstructed coronal and sagittal images were created and reviewed. Findings: The ventricles appear of normal size and configuration. No focal mass effect or midline shift is seen. No acute intracranial bleed or abnormal extra-axial fluid collection is seen. There is a new 5 mm to 6 mm lacunar infarct within the right centrum semiovale within the anterior right parietal region on axial images #37 and #38. Although new from 07/14/2016, I do not believe this is acute or subacute. No other low attenuation infarct is seen within a major cerebral or cerebellar artery distribution. The cortical sulci and basilar cisterns appear unremarkable. Mild vascular calcification is seen within both distal vertebral arteries. There is also mild vascular calcification within the distal internal carotid artery siphons. Mild hyperostosis frontalis interna is seen. The calvarium of the skull appears intact. The visualized paranasal sinuses are clear without air-fluid levels.. The mastoid air cells are clear without effusion. The middle ear cavities appear grossly unremarkable. No significant abnormality of the orbits is seen. Impression: 1. No acute intracranial bleed or other acute intracranial process is seen. 2. Compared to the prior CT of the head from 07/14/2016, there is a new, but probably chronic lacunar white matter infarct within the right parietal white matter in the centrum semiovale. See axial images #37 and #38. 3. Hyperostosis frontalis interna.
--- NOTE | 2021-02-14 21:53 | XRAY ---
Exam: Duplex Doppler carotid ultrasound examination from 02/14/2021. Comparison: Duplex Doppler carotid ultrasound examination from 07/15/2016. Indication: CVA symptoms. Technique: Grayscale images, color blood flow images, and Doppler tracings for velocity measurements were obtained within both carotid arteries in the neck. The vertebral arteries were assessed as well. Findings: On the right side, the common carotid artery is mildly tortuous and reveals some mild intimal thickening and plaque. Mild fibrocalcific plaque is seen at both the anterior and posterior aspects of the carotid bulb as well. Peak systolic flow velocities in centimeters per second measure 98 and 56 within the proximal and distal common carotid artery, respectively, 50 and 44 within the proximal and distal internal carotid artery, respectively, and 78 within the external carotid artery. The peak ICA to CCA ratio measures 0.9 which is not elevated. The right vertebral artery reveals antegrade flow with a peak systolic flow velocity of 40 cm/s. On the left side, I again see some mild intimal thickening and soft tissue plaque within the common carotid artery. Some calcific plaque is seen at the lateral margin of the carotid bulb. The common carotid artery and internal carotid artery are tortuous. Peak systolic flow velocities in centimeters per second measure 106 and 78 within the proximal and distal common carotid artery, respectively, 53 and 65 within the proximal and distal internal carotid artery, respectively, and 41 within the external carotid artery. The peak ICA to CCA ratio measures 0.8 which is not elevated. The left vertebral artery reveals antegrade flow with a peak systolic flow velocity of 39 cm/s. Impression: 1. Mild atherosclerotic plaque and calcification are seen bilaterally. However, no evidence of a hemodynamically significant stenosis of 50% or greater diameter reduction is seen within either carotid artery. 2. The vertebral arteries reveal antegrade flow.
--- NOTE | 2021-02-17 13:13 | ECHO ---
Transthoracic echocardiographic examination and color Doppler was done on 02/14/2021. INDICATION: Cardiomyopathy. IMPRESSION: 1) GLOBAL LEFT VENTRICULAR HYPOKINESIA WITH GLOBAL EJECTION FRACTION OF ABOUT 25%. 2) DILATED LEFT VENTRICLE. 3) LEFT VENTRICULAR ENLARGEMENT. 4) MILD MITRAL REGURGITATION. 5) TRACE TRICUSPID REGURGITATION. RIGHT VENTRICULAR SYSTOLIC PRESSURE OF 22 MM OF MERCURY. 6) ICD LEADS IN THE RIGHT ATRIUM AND RIGHT VENTRICLE. 7) SUSPICIOUS FOR MURAL THROMBUS APEX. The left ventricle is visualized and demonstrated global left ventricular hypokinesia. Ejection fraction of about 25%. The left ventricle is dilated. There appears to be some echo densities in the left ventricular apex which may represent an organized mural thrombus. The mitral valve is seen and this opens adequately. There is mild mitral regurgitation. Left atrium is enlarged. The aortic valve is sclerotic but opens adequately. The right side chambers are normal. There is mild tricuspid regurgitation. The right ventricular systolic pressure of 22 mm of Mercury. There is also ICD electrodes seen in the right atrium and right ventricle.
== END 2021-02-14 20:50 | disposition home or self-care (01) ==
LOC: ED 20:04 → MED SURG 02-14 01:40
PROVIDERS: ADMIT Family Medicine; ATTEND Family Medicine
DX: G45.9 Transient cerebral ischemic attack, unspecified (principal); I42.9 Cardiomyopathy, unspecified; I10 Essential (primary) hypertension; E11.9 Type 2 diabetes mellitus without complications; E78.5 Hyperlipidemia, unspecified; Z20.828 Contact with and (suspected) exposure to other viral communicable diseases; Z79.899 Other long term (current) drug therapy
CPT/HCPCS: 36000; 36415; 70450; 71045; 80053; 80061; 81001; 82947; 83605; 83721; 84484; 85025; 93005; 93268; 93306; 93880; 99285; 99291; G0378; Q3014; U0003; 93225; J0696; A9270-GY

== ENCOUNTER 2022-11-28 14:46 | Emergency (ER) | payer MEDICARE ==
[2022-11-28] MEDS ORDERED: SUBLIMAZE 100 MCG/2 ML IV ONE (15:16)
[2022-11-28] MEDS ORDERED: Sodium Chloride 0.9% 500 ML 500 ML IV ONE ×2 (15:16→15:27)
[2022-11-28] MEDS ORDERED: Zofran 4 MG/2 ML VIAL IV ONE (15:16)
[2022-11-28] MEDS ORDERED: Zofran 4 MG/2 ML VIAL ONE (15:25)
[2022-11-28] MEDS ORDERED: SUBLIMAZE 100 MCG/2 ML ONE (15:27)
[2022-11-28 15:29] LABS: Absolute Neutrophil Ct (ANC) 5.11 x10^3/uL (1.4-6.9); BASOPHIL % 0.3 % (0.0-0.4); Basophil (Absolute #) 0.02 x10^3/uL (0-0.4); Eosinophil % 1.1 % (0.00-5.0); Eosinophil (Absolute #) 0.08 x10^3/uL (0-0.5); Hematocrit 39.4 % (35-47); Hemoglobin 12.8 g/dL (12.0-16.0); IMMATURE GRAN # 0.03 x10^3u/L (0.00-0.03); IMMATURE GRAN % 0.4 % (0.00-0.4); Lymphocytes % 22.8 % (24.0-44.0); Mean Cell Volume 90.2 fL (78-100); Mean Corpuscular Hemoglobin 29.3 pg (26-32); Mean Corpuscular Hgb Concent. 32.5 g/dL (32-36); Monocyte (Absolute #) 0.17 x10^3/uL (0.0-1.3); Monocytes % 2.4 % (0.0-12.0); Platelet Count 151 x10^3/uL (150-450); Red Blood Count 4.37 x10^6/uL (4.1-5.4); Red Cell Distribution Width 12.7 % (11.5-14.0)
[2022-11-28 15:40] LABS: Appearance Clear (Clear); Bacteria None Seen /HPF (None Seen); Bilirubin Negative (Negative); Blood Negative (Negative); Epithelial Cells None Seen /HPF (None Seen); Glucose, Urine >=1000 mg/dL (Negative); Hyaline Casts NONE SEEN /LPF (0-2); Ketones Trace (Negative); Leukocyte Esterase Negative (Negative); Nitrite Negative (Negative); Protein,Urine Dip Negative (Negative); RBC 0-2 /HPF (0-5); WBC 0-2 /HPF (0-5)
[2022-11-28 15:46] LABS: ADD URINE CULTURE? YES (NO)
[2022-11-28 16:17] LABS: ALBUMIN 3.6 g/dL (3.5-5.0); ALKALINE PHOSPHATASE 55 U/L (38-126); ANION GAP 14.2 MEQ/L (5-15); BLOOD UREA NITROGEN 17 mg/dL (7-17); CHLORIDE 100 mmol/L (98-107); Calcium 8.3 mg/dL (8.4-10.2); Carbon Dioxide 22 mmol/L (22-30); Creatinine 1 1.04 mg/dL (0.52-1.04); EST GLOMERULAR FILTRATION RATE 54.8 ML/MIN; Glucose 346 mg/dL (74-106); Potassium 4.3 mmol/L (3.5-5.1); SGOT/AST 72 U/L (14-36); SGPT/ALT 63 U/L (0-35); SODIUM 132 mmol/L (137-145); TROPONIN < 0.012 ng/mL (0.000-0.034); Total Protein 6.6 g/dL (6.3-8.2)
--- NOTE | 2022-11-28 16:22 | ERPHSYRPT ---
- History of Present Illness Time Seen by Provider: 11/28/22 15:00 Source: patient, family Exam Limitations: no limitations Patient Subjective Stated Complaint: Fall Triage Nursing Assessment: Patient brought back to ED per w/c and transferred self to bed. Patient A+O X3. Patient's skin pink, warm and dry. Patient states she has had recent falls in the past week. Patient complains of right wrist pain, right knee pain and andrés hip and pelvis pain 8/10. Patient unable to lay andrés legs flat. Patient complains of sharp pain to andrés pelvis/hips when ambulating or walking. Physician History: 77 years old female with history of hypertension, hyperlipidemia, coronary artery disease, congestive heart failure with pacemaker placement presented to the ER with chief complaint of repeated falls for almost 7 to 10 days. Patient reports most of the falls were mechanical without any loss of consciousness but she is feeling weak fatigued tired. Because of repeated falls she is having pain in both hips and does not want to move them at all today. She did hit her head couple of days ago without LOC. Denies any chest pain palpitations or shortness of breath. No abdominal pain nausea or vomiting. Occurred: days ago (10) Injuries/Pain Location: head, pelvis, lower Loss of Consciousness: no loss of consciousness Quality: sharpness Severity of Pain-Max: moderate Severity of Pain-Current: moderate Modifying Factors: Worsens With: movement Associated Symptoms (Fall): extremity injury, muscle spasms, No abdominal pain, No dizziness, No headache, No ringing in ears, No shortness of breath, No slurred speech, No trouble walking, No vomiting, No vision changes Allergies/Adverse Reactions: iopamidol [From Isovue-M] Allergy (Severe, Verified 11/28/22 14:58) CONVULSIONS FROM INTRATHECAL ADMINISTRATION morphine Adverse Reaction (Severe, Verified 11/28/22 14:58) BEHAVIOR Home Medications: ALPRAZolam 1 MG [Xanax 1 mg] 1 mg PO BID #0 02/10/12 [History] Metformin HCl 1000 mg [Glucophage 1000 MG] 1,000 mg PO BID #0 02/10/12 [History] Cetirizine HCl [Zyrtec] 10 mg PO DAILY 07/14/16 [History] Escitalopram Oxalate 20 mg PO DAILY 07/14/16 [History] Furosemide 40 mg [Lasix 40 MG] 60 mg PO DAILY 07/14/16 [History] Magnesium Oxide 400 mg [Mag-Ox 400] 400 mg PO BID 07/14/16 [History] Potassium Chloride 20 Meq [Klor-Con 20 MEQ] 20 meq PO BID 07/14/16 [History] Pravastatin Sodium 40 mg PO DAILY 07/14/16 [History] Ropinirole HCl 0.25 mg PO DAILY 07/14/16 [History] Sacubitril/Valsartan [Entresto 24 mg-26 mg Tablet] 1 each PO DAILY 07/14/16 [Hi story] Spironolact/Hydrochlorothiazid [Spironolactone-Hctz 25-25 Tab] 1 each PO DAILY 07/14/16 [History] Tizanidine HCl [Zanaflex] 1 - 2 tab PO HS 07/14/16 [History] Ropinirole HCl 0.5 mg PO HS 02/14/21 [History] Hx Tetanus, Diphtheria Vaccination/Date Given: No Hx Influenza Vaccination/Date Given: Yes Hx Pneumococcal Vaccination/Date Given: No Immunizations Up to Date: Yes Travel Risk - International Travel Have you traveled outside of the country in past 3 weeks: No - Coronavirus Screening Are you exhibiting any of the following symptoms?: No Close contact with a COVID-19 positive Pt in past 14-21 Days: No - Vaccine Status Have you recieved a Covid-19 vaccination: Yes 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 - Vaccination Dates Dates if Unknown: na - Review of Systems Constitutional: No Symptoms Eyes: No Symptoms Ears, Nose, & Throat: No Symptoms Respiratory: No Symptoms Cardiac: No Symptoms Abdominal/Gastrointestinal: No Symptoms Genitourinary Symptoms: No Symptoms Musculoskeletal: Fall, Injury, Joint Pain Skin: No Symptoms Neurological: No Symptoms Psychological: No Symptoms Endocrine: No Symptoms Hematologic/Lymphatic: No Symptoms - Past Medical History Pertinent Past Medical History: Yes Neurological History: Migraines, TIA ENT History: Cataracts Cardiac History: Congestive Heart Failure, Hypertension, Myocardial Infarction ([place]), Other Respiratory History: CHF Endocrine Medical History: Diabetes Type II Musculoskeletal History: Other GI Medical History: No Pertinent History, Other History: No Pertinent History Psycho-Social History: Anxiety, Depression Female Reproductive Disorders: No Pertinent History Other Medical History: HYSTERECTOMY, CARDIOMYOPATHY - Past Surgical History Past Surgical History: Yes Neuro Surgical History: No Pertinent History Cardiac: Cardiac Catheterization, Internal Defibrillator, Pacemaker Respiratory: No Pertinent History Gastrointestinal: No Pertinent History Genitourinary: No Pertinent History Musculoskeletal: No Pertinent History Female Surgical History: Hysterectomy - Social History Smoking Status: Former smoker Exposure to second hand smoke: Yes Drug Use: none Patient Lives Alone: No - Nursing Vital Signs Nursing Vital Signs: Initial Vital Signs Temperature 97.6 F 11/28/22 14:59 Pulse Rate 72 11/28/22 14:59 Respiratory Rate 18 11/28/22 14:59 Blood Pressure 116/62 11/28/22 14:59 O2 Sat by Pulse Oximetry 97 11/28/22 14:59 Pain Scale Pain Intensity 0 - [place] Coma Score Best Eye Response ([place]): (4) open spontaneously Best Verbal Response ([place]): (5) oriented Best Motor Response (Benji): (6) obeys commands [place] Total: 15 - Physical Exam General Appearance: no apparent distress, alert Head Injury: no evidence of injury, No raccoon eyes, No tenderness Eye Exam: PERRL/EOMI, eyes nml inspection, scleral icterus ENT Exam: airway nml, nml ext.inspection, No evidence of ENT injury, No dental injury Neck Exam: supple, trachea midline, full range of motion, normal alignment Respiratory/Chest Exam: chest tenderness, normal breath sounds Cardiovascular Exam: normal heart sounds, regular rate/rhythm Gastrointestinal Exam: soft, normal bowel sounds, No tenderness Back Exam: normal inspection, normal range of motion Extremity Exam: bony point tenderness (Right knee, bilateral hips), pain with movement (Hips) Neurologic Exam: alert, oriented x 3, cooperative, 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 II-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 nml as tested, sensation nml, No motor deficits Skin Exam: normal color SpO2 Interpretation: normal SpO2: 97 O2 Delivery: Room Air - Course EKG Interpreted by Me: RATE (70 paced rhythm), Left Neola Deviation, Non-specific ST Changes Ordered Tests: Active Orders 24 hr Category Date Time Status EKG-ER Only STAT Care 11/28/22 15:15 Completed IV Insertion STAT Care 11/28/22 15:15 Completed CERVICAL SPINE WO CONTRAST [CT] Stat Exams 11/28/22 15:14 Completed CHEST 1 VIEW (PORTABLE) Stat Exams 11/28/22 15:15 Completed HEAD WITHOUT CONTRAST [CT] Stat Exams 11/28/22 15:14 Completed KNEE (3 VIEWS) Stat Exams 11/28/22 15:49 Completed LUMBAR SPINE W/O [CT] Stat Exams 11/28/22 15:14 Completed PELVIS WITHOUT CONTRAST [CT] Stat Exams 11/28/22 15:14 Completed CBC W DIFF Stat Lab 11/28/22 15:28 Completed CMP Stat Lab 11/28/22 15:28 Completed CULTURE,URINE Stat Lab 11/28/22 15:25 Results MAG [MAGNESIUM] Stat Lab 11/28/22 15:28 Completed TROPONIN Q4H Lab 11/28/22 15:28 Completed UA W/RFX UR CULTURE Stat Lab 11/28/22 15:25 Completed Medication Summary Discontinued Medications Generic Name Dose Route Start Last Admin Trade Name Freq PRN Reason Stop Dose Admin Hydrocodone Bitart/Acetaminophen 2 tab 11/28/22 18:23 11/28/22 18:27 Hydrocodone/Apap 5/325 1 Tab Tablet PO 11/28/22 18:24 2 tab SENT HOME W/ PATIENT ONE Administration Hydrocodone Bitart/Acetaminophen Confirm 11/28/22 18:25 Hydrocodone/Apap 5/325 1 Tab Tablet Administered 11/28/22 18:26 Dose 2 tab .ROUTE .STK-MED ONE Fentanyl Citrate 50 mcg 11/28/22 15:16 11/28/22 15:34 Fentanyl Citrate 100 Mcg/2 Ml* Vial IV 11/28/22 15:17 50 mcg STAT ONE Administration Fentanyl Citrate Confirm 11/28/22 15:27 Fentanyl Citrate 100 Mcg/2 Ml* Vial Administered 11/28/22 15:28 Dose 100 mcg .ROUTE .STK-MED ONE Sodium Chloride 500 mls @ 500 mls/hr 11/28/22 15:16 11/28/22 16:35 Sodium Chloride 0.9% 500 Ml IV 11/28/22 16:15 Infused .Q1H ONE Infusion Sodium Chloride Confirm 11/28/22 15:27 Sodium Chloride 0.9% 500 Ml Administered 11/28/22 15:28 Dose 500 mls @ ud IV .STK-MED ONE Ondansetron HCl 4 mg 11/28/22 15:16 11/28/22 15:35 Ondansetron Hcl 4 Mg/2 Ml Vial IV 11/28/22 15:17 4 mg STAT ONE Administration Ondansetron HCl Confirm 11/28/22 15:25 Ondansetron Hcl 4 Mg/2 Ml Vial Administered 11/28/22 15:26 Dose 4 mg .ROUTE .K-MED ONE Lab/Rad Data: Laboratory Result Diagrams 11/28/22 15:28 11/28/22 15:28 Laboratory Results 11/28/22 11/28/22 11/28/22 Range/Units 15:28 15:28 15:28 WBC 7.0 (4.0-10.5) x10^3/uL RBC 4.37 (4.1-5.4) x10^6/uL Hgb 12.8 (12.0-16.0) g/dL Hct 39.4 (35-47) % MCV 90.2 (78-100) fL MCH 29.3 (26-32) pg MCHC 32.5 (32-36) g/dL RDW 12.7 (11.5-14.0) % Plt Count 151 (150-450) x10^3/uL MPV 13.0 H (7.5-11.0) fL Gran % 73.0 H (36.0-66.0) % Immature Gran % (Auto) 0.4 (0.00-0.4) % Nucleat RBC Rel Count 0.0 (0.00-0.1) % Eos # (Auto) 0.08 (0-0.5) x10^3/uL Immature Gran # (Auto) 0.03 (0.00-0.03) x10^3u/L Absolute Lymphs (auto) 1.60 (1.0-4.6) x10^3/uL Absolute Monos (auto) 0.17 (0.0-1.3) x10^3/uL Absolute Nucleated RBC 0.00 (0.00-0.01) x10^3u/L Lymphocytes % 22.8 L (24.0-44.0) % Monocytes % 2.4 (0.0-12.0) % Eosinophils % 1.1 (0.00-5.0) % Basophils % 0.3 (0.0-0.4) % Absolute Granulocytes 5.11 (1.4-6.9) x10^3/uL Basophils # 0.02 (0-0.4) x10^3/uL Sodium 132 L (137-145) mmol/L Potassium 4.3 (3.5-5.1) mmol/L Chloride 100 (98-107) mmol/L Carbon Dioxide 22 (22-30) mmol/L Anion Gap 14.2 (5-15) MEQ/L BUN 17 (7-17) mg/dL Creatinine 1.04 (0.52-1.04) mg/dL Estimated GFR 54.8 ML/MIN Glucose 346 H (74-106) mg/dL Calcium 8.3 L (8.4-10.2) mg/dL Magnesium 1.6 (1.6-2.3) mg/dL Total Bilirubin 0.80 (0.2-1.3) mg/dL AST 72 H (14-36) U/L ALT 63 H (0-35) U/L Alkaline Phosphatase 55 (38-126) U/L Troponin I < 0.012 (0.000-0.034) ng/mL Serum Total Protein 6.6 (6.3-8.2) g/dL Albumin 3.6 (3.5-5.0) g/dL Urine Color (Yellow) Urine Appearance (Clear) Urine pH (4.6-8.0) Ur Specific North (1.005-1.030) Urine Protein (Negative) Urine Glucose (UA) (Negative) mg/dL Urine Ketones (Negative) Urine Blood (Negative) Urine Nitrite (Negative) Urine Bilirubin (Negative) Urine Urobilinogen (0.2) mg/dL Ur Leukocyte Esterase (Negative) U Hyaline Cast (Auto) (0-2) /LPF Urine Microscopic RBC (0-5) /HPF Urine Microscopic WBC (0-5) /HPF Ur Epithelial Cells (None Seen) /HPF Urine Bacteria (None Seen) /HPF Urine Culture Reflexed (NO) 11/28/22 Range/Units 15:25 WBC (4.0-10.5) x10^3/uL RBC (4.1-5.4) x10^6/uL Hgb (12.0-16.0) g/dL Hct (35-47) % MCV (78-100) fL MCH (26-32) pg MCHC (32-36) g/dL RDW (11.5-14.0) % Plt Count (150-450) x10^3/uL MPV (7.5-11.0) fL Gran % (36.0-66.0) % Immature Gran % (Auto) (0.00-0.4) % Nucleat RBC Rel Count (0.00-0.1) % Eos # (Auto) (0-0.5) x10^3/uL Immature Gran # (Auto) (0.00-0.03) x10^3u/L Absolute Lymphs (auto) (1.0-4.6) x10^3/uL Absolute Monos (auto) (0.0-1.3) x10^3/uL Absolute Nucleated RBC (0.00-0.01) x10^3u/L Lymphocytes % (24.0-44.0) % Monocytes % (0.0-12.0) % Eosinophils % (0.00-5.0) % Basophils % (0.0-0.4) % Absolute Granulocytes (1.4-6.9) x10^3/uL Basophils # (0-0.4) x10^3/uL Sodium (137-145) mmol/L Potassium (3.5-5.1) mmol/L Chloride (98-107) mmol/L Carbon Dioxide (22-30) mmol/L Anion Gap (5-15) MEQ/L BUN (7-17) mg/dL Creatinine (0.52-1.04) mg/dL Estimated GFR ML/MIN Glucose (74-106) mg/dL Calcium (8.4-10.2) mg/dL Magnesium (1.6-2.3) mg/dL Total Bilirubin (0.2-1.3) mg/dL AST (14-36) U/L ALT (0-35) U/L Alkaline Phosphatase (38-126) U/L Troponin I (0.000-0.034) ng/mL Serum Total Protein (6.3-8.2) g/dL Albumin (3.5-5.0) g/dL Urine Color Yellow (Yellow) Urine Appearance Clear (Clear) Urine pH 6.0 (4.6-8.0) Ur Specific North 1.020 (1.005-1.030) Urine Protein Negative (Negative) Urine Glucose (UA) >=1000 A (Negative) mg/dL Urine Ketones Trace A (Negative) Urine Blood Negative (Negative) Urine Nitrite Negative (Negative) Urine Bilirubin Negative (Negative) Urine Urobilinogen 1.0 A (0.2) mg/dL Ur Leukocyte Esterase Negative (Negative) U Hyaline Cast (Auto) NONE SEEN (0-2) /LPF Urine Microscopic RBC 0-2 (0-5) /HPF Urine Microscopic WBC 0-2 (0-5) /HPF Ur Epithelial Cells None Seen (None Seen) /HPF Urine Bacteria None Seen (None Seen) /HPF Urine Culture Reflexed YES (NO) - Progress Progress Note: 11/28/22 16:30 77 years old female with history of hypertension, hyperlipidemia, coronary artery disease, congestive heart failure with pacemaker placement presented to the ER with chief complaint of repeated falls for almost 7 to 10 days. Patient reports most of the falls were mechanical without any loss of consciousness but she is feeling weak fatigued tired. Because of repeated falls she is having pain in both hips and does not want to move them at all today. She did hit her head couple of days ago without LOC. Denies any chest pain palpitations or s hortness of breath. No abdominal pain nause. Most of the fall seems mechanical, will obtain baseline labs to make sure patient does not have any other organic causes for these falls. Will obtain CT head, cervical spine, lumbar spine and pelvis along with x-rays of chest and knee. She is given symptomatic treatment for pain. EKG is paced rhythm with no acute changes. 11/28/22 17:59 [email or web address] Counseled pt/family regarding: lab results, diagnosis, need for follow-up, rad results - Departure Departure Disposition: Home Clinical Impression: Frequent falls, Hyperglycemia, Contusion of hip, Knee contusion Condition: Stable Critical Care Time: No Referrals: NOEMY PAVON [Primary Care Provider] - Follow up/PCP as directed Instructions: Contusion (DC), Preventing Falls in Older Adults Additional Instructions: Take Tylenol as needed, monitor your blood sugar regularly, keep a log and follow-up with primary care for reevaluation and may need changes in medications . Do not take ibuprofen. Use cane or walker for ambulation to avoid another fall. Return to ER for any worsening. Forms: Ortho Referral
[2022-11-28 17:03] VITALS: PULSE 71
--- NOTE | 2022-11-28 17:47 | XRAY ---
CLINICAL HISTORY:REPEATED FALLS; COMPARISON:02/13/2021; TECHNIQUES:Axial non-contrast CT scan of the brain was performed from the skull base to the high parietal region. CTDI: 53.92 mGy, DLP 935.49 mGy*cm; FINDINGS: There are periventricular areas of low attenuation throughout the deep white matter. Focal hypodense area in right frontal deep white matter, suggestive of sequelae. The ventricular system, cortical sulci and basal cisterns are prominent, consistent with senile changes. Pascual-white matter differentiation is maintained. No midline shifts or deformity. No intracerebral or extra axial hematoma. Normal CT appearance of the posterior fossa structures namely the cerebellar hemispheres, brainstem and cerebellar peduncles. The IACs are unremarkable. The cerebellopontine angles are clear. The pituitary gland, the pineal gland, and the optic chiasm are unremarkable. The osseous structures in the skull base are unremarkable. No definite calvarium fractures. The scanned paranasal sinuses are clear. IMPRESSION: 1. No intracerebral or extra axial hematoma. 2. The above-mentioned findings are suggestive of mild microvascular ischemic changes and senile changes. 3. The rest of non-enhanced CT study for the brain is unremarkable. Electronically Signed by: Brandon Moran MD. (11/28/2022 16:28:29 WATER SERVICE SUPERVISOR)
--- NOTE | 2022-11-28 17:49 | XRAY ---
CLINICAL HISTORY:REPEATED FALLS; COMPARISON:None; TECHNIQUES:Thin axial CT of the cervical spine was performed with sagittal and coronal reconstructions without contrast. DLP 475.24 mGy*cm, CTDI: 24.7 mGy; FINDINGS: Preserved physiological cervical lordosis. Normal vertebral bodies height and alignment. Degenerative changes in the visualized spine, with marginal osteophytes at C2-C3 and C3-C4. No lytic or sclerotic bone lesion. The craniovertebral measures are unremarkable. Narrowing of intervertebral disc spaces. Level by level analysis. C2-C3: No central canal or neuroforaminal stenosis. C3-C4: No central canal or neuroforaminal stenosis. C4-C5: No central canal or neuroforaminal stenosis. C5-C6: No central canal or neuroforaminal stenosis. C6-C7: No central canal or neuroforaminal stenosis. IMPRESSION: Spondylotic changes with osteophytes. Electronically Signed by: Brandon Moran MD. (11/28/2022 16:20:13 FLOOR HELPER)
--- NOTE | 2022-11-28 17:52 | XRAY ---
CLINICAL HISTORY:REPEATED FALLS; COMPARISON:CT dated 09/14/2016; TECHNIQUES:CT scan without contrast lumbar spine was done. Axial images were obtained with reformatted coronal and sagittal images and submitted for interpretation. CTDI: 16.92 mGy, DLP: 503.32 mGy*cm; FINDINGS: Preserved physiological lumbar lordosis. Grade I (2mm) retrolisthesis L4 over L5. Normal vertebral bodies height. Degenerative changes in the visualized spine, with marginal osteophytes. Narrowing of intervertebral disc spaces, predominantly at lower lumbar levels. Pneumodisc L4-L5. No definite fractures could be detected. Segmental disc analysis level by level. L1-L2: Disc protrusion noted. L2-L3: Disc protrusion noted. L3-L4: Disc protrusion noted. L4-L5: Disc protrusion noted. L5-S1: Disc protrusion noted. IMPRESSION: Grade I retrolisthesis L4 -L5. This is a new finding. Spondylotic changes with osteophytes. Disc protrusions at multiple levels. Further evaluation with MR recommended. Electronically Signed by: Brandon Moran MD. (11/28/2022 16:48:50 VIDEO AND SOUND RECORDER)
--- NOTE | 2022-11-28 17:54 | XRAY ---
CLINICAL HISTORY:REPEATED FALLS; COMPARISON:CT Abdomen and pelvis dated 07/15/2016; TECHNIQUES:CT scan of the pelvis was performed without IV contrast. Coronal and sagittal reconstructive images were obtained. CTDI: 12.34 mGy, DLP: 337.01 mGy*cm; FINDINGS: Both hip joints are normal. The hip joints reveal normal rounded contour. No evidence of articular collapse. The joint spaces are normal. No loose bodies. There is no evidence of joint effusion. Bilateral sacroiliac joints appear normal. No evidence of obvious fracture noted at present examination. No lytic or sclerotic bone lesions. The visualized soft tissues are normal. IMPRESSION: Electronically Signed by: Brandon Moran MD. ( 11/28/2022 15:46:44 INSTRUCTIONAL TECHNOLOGY COORDINATOR)
[2022-11-28 18:08] VITALS: BP 113/84
[2022-11-28] MEDS ORDERED: NORCO 5/325 MG PO ONE (18:23)
[2022-11-28] MEDS ORDERED: NORCO 5/325 MG ONE (18:25)
--- NOTE | 2022-11-28 20:33 | XRAY ---
Indication: Pain following fall. Comparison: April 15, 2009 3 view right knee now demonstrates minimal medial joint space narrowing and tiny patella spurring. Again incidental posterior fabella. No other bony, articular, or soft tissue abnormalities.
--- NOTE | 2022-11-28 20:33 | XRAY ---
Indication: Frequent falls. Comparison: February 13, 2021 Portable chest remains clear. Heart borderline enlarged again with left AICD. Bony thorax intact again with osteopenia. Impression: Continued nonacute chest with chronic features.
[2022-11-29 12:09] VITALS: O2SAT 97
== END 2022-11-28 18:16 | disposition home or self-care (01) ==
LOC: ED 14:46
DX: S70.02XA Contusion of left hip, initial encounter (principal); S70.01XA Contusion of right hip, initial encounter; S80.01XA Contusion of right knee, initial encounter; W19.XXXA Unspecified fall, initial encounter; Z91.81 History of falling; E11.65 Type 2 diabetes mellitus with hyperglycemia; R53.1 Weakness; R53.83 Other fatigue; I11.0 Hypertensive heart disease with heart failure; I50.9 Heart failure, unspecified; E78.5 Hyperlipidemia, unspecified; Z79.84 Long term (current) use of oral hypoglycemic drugs; Z79.899 Other long term (current) drug therapy
CPT/HCPCS: 36000; 36415; 70450; 71045; 72125; 72131; 72192; 73562; 80053; 81001; 83735; 84484; 85025; 87086; 93005; 96360; 96374; 96375; 99284; J2405; J3010; A9270-GY

== ENCOUNTER 2023-02-24 08:50 | Day surgery (SDC) | payer MEDICARE ==
[2023-02-24] MEDS ORDERED: XYLOCAINE 1% HCL 20 ML MDV IJ ONE (08:51)
[2023-02-24] MEDS ORDERED: Sodium Chloride 0.9(Preservative Free) 10 ML IJ ONE (08:51)
[2023-02-24] MEDS ORDERED: Depo-Medrol 40 MG/ML IM ONE (08:51)
[2023-02-24] MEDS ORDERED: Versed 2 MG/2 ML Injection ONE (11:06)
[2023-02-24] MEDS ORDERED: Lactated Ringers 1,000 ML IV ONE (12:27)
--- NOTE | 2023-02-24 12:54 | XRAY ---
Indication: Lumbar WENDY. Intraoperative fluoroscopy provided for 25 seconds. 3 digital spot images submitted for interpretation demonstrates posterior needle tip projecting posterior to lumbosacral junction interspace. Small amount of contrast injected for needle tip placement. Correlate with intraoperative findings/report.
--- NOTE | 2023-02-24 13:37 | XRAY ---
25 seconds of fluoroscopy was used in surgery for a lumbar WENDY.
== END 2023-02-24 11:38 | disposition home or self-care (01) ==
LOC: SDC-PAIN 08:50
PROVIDERS: ATTEND Psychiatry & Neurology Pain Medicine
DX: M54.16 Radiculopathy, lumbar region (principal); E11.9 Type 2 diabetes mellitus without complications; Z79.899 Other long term (current) drug therapy
CPT/HCPCS: 62323; 72100; 77003; 82947; J1030; J2250; Q9966

== ENCOUNTER 2023-04-29 09:15 | Day surgery (SDC) | payer MEDICARE ==
[2023-04-29] MEDS ORDERED: Depo-Medrol 40 MG/ML IM ONE (09:16)
[2023-04-29] MEDS ORDERED: BUPIVACAINE 0.5% VIAL IJ ONE (09:16)
[2023-04-29] MEDS ORDERED: DIPRIVAN 200 MG/20 ML IV ONE (11:36)
[2023-04-29] MEDS ORDERED: Lactated Ringers 1,000 ML IV ONE (12:28)
--- NOTE | 2023-04-29 12:28 | XRAY ---
Indication: Bilateral hip injection. Intraoperative fluoroscopy provided for 24 seconds. 2 digital spot image submitted for interpretation demonstrates needle tip projecting lateral to left and right femur necks. Small amount of contrast injected for both needle tip placement. Correlate with intraoperative findings/report.
--- NOTE | 2023-04-29 12:34 | XRAY ---
24 seconds of fluoroscopy was used in surgery for a bilateral intra-articular hip injection.
== END 2023-04-29 12:06 | disposition home or self-care (01) ==
LOC: SDC-PAIN 09:15
PROVIDERS: ATTEND Psychiatry & Neurology Pain Medicine
DX: M16.0 Bilateral primary osteoarthritis of hip (principal); E11.9 Type 2 diabetes mellitus without complications
CPT/HCPCS: 20610; 73521; 77002; 82947; J1030; J2704; Q9966

== ENCOUNTER 2023-10-25 06:54 | Observation (INO) | payer MEDICARE ==
--- NOTE | 2023-10-25 07:11 | ERPHSYRPT ---
- History of Present Illness Time Seen by Provider: 10/25/23 07:05 Source: patient Exam Limitations: clinical condition, other (Word searching) Physician History: This is a 78-year-old white female patient Dr. Damon who was last known well and in her normal state, last evening at 9 PM. At 545 this morning, patient was brought into the emergency department this morning by her daughter secondary to word searching and associated headache. Patient states that when she was talking to her daughter this morning was when she was having trouble thinking and saying the words. Patient was seen in the emergency department yesterday, 10/24/2023 and found to have a right ankle fracture and was placed in a posterior splint and instructed to be nonweightbearing and to follow-up with podiatry. Patient did not hit her head. Patient is on Plavix and has a history of migr ashtyn headaches and TIAs. Patient also has a history of spinal stenosis, hyperlipidemia, hypertension and diabetes. She also has a history of CHF, cardiomyopathy and has an internal defibrillator/pacemaker in place. Patient denies chest pain. Patient denies shortness of breath. Patient is moving all her extremities but is word searching. Additional, independent history from patient family member who states she has had this type of thing happened before and within a 24-hour. Her symptoms resolved. Timing/Duration: today Severity: moderate Character of Deficits: impaired speech, other (Word searching. No obvious slurred speech) Baseline/Normal Cognition: alert oriented x 3 Current Cognition: alert oriented x 3 Baseline Gait: walks w/o assistance Associated Symptoms: weakness, other (Patient is nonweightbearing secondary to right ankle fracture she sustained yesterday, 10/24/2023) Allergies/Adverse Reactions: iopamidol [From Isovue-M] Allergy (Severe, Verified 10/24/23 10:32) CONVULSIONS FROM INTRATHECAL [employer]MINISTRATION morphine Adverse Reaction (Severe, Verified 10/24/23 10:32) BEHAVIOR Home Medications: Metformin HCl 1000 mg [Glucophage 1000 MG] 1,000 mg PO BID #0 02/10/12 [History] Cetirizine HCl [Zyrtec] 10 mg PO DAILY 07/14/16 [History] Escitalopram Oxalate 20 mg PO DAILY 07/14/16 [History] Furosemide 40 mg [Lasix 40 MG] 60 mg PO DAILY 07/14/16 [History] Magnesium Oxide 400 mg [Mag-Ox 400] 400 mg PO BID 07/14/16 [History] Potassium Chloride 20 Meq [Klor-Con 20 MEQ] 20 meq PO BID 07/14/16 [History] Pravastatin Sodium 40 mg PO DAILY 07/14/16 [History] Ropinirole HCl 0.25 mg PO DAILY 07/14/16 [History] Sacubitril/Valsartan [Entresto 24 mg-26 mg Tablet] 1 each PO DAILY 07/14/16 [History] Spironolact/Hydrochlorothiazid [Spironolactone-Hctz 25-25 Tab] 1 each PO DAILY 07/14/16 [History] Tizanidine HCl [Zanaflex] 1 - 2 tab PO HS 07/14/16 [History] Ropinirole HCl 0.5 mg PO HS 02/14/21 [History] Hx Tetanus, Diphtheria Vaccination/Date Given: No Hx Influenza Vaccination/Date Given: Yes Hx Pneumococcal Vaccination/Date Given: No Travel Risk - International Travel Have you traveled outside of the country in past 3 weeks: No - Emerging Infectious Disease Are you exhibiting symptoms associated with any current EIDs: No - Review of Systems Constitutional: No Symptoms Eyes: No Symptoms Ears, Nose, & Throat: No Symptoms Respiratory: No Symptoms Cardiac: No Symptoms Abdominal/Gastrointestinal: No Symptoms Genitourinary Symptoms: No Symptoms Musculoskeletal: Injury (Right ankleknown right ankle fracture. Diagnosed 10/24/2023) Skin: No Symptoms Neurological: Speech Changes (Researching) Psychological: No Symptoms Endocrine: No Symptoms Hematologic/Lymphatic: No Symptoms Immunological/Allergic: No Symptoms All Other Systems: Reviewed and Negative - Past Medical History Pertinent Past Medical History: Yes Neurological History: Migraines, TIA ENT History: Cataracts Cardiac History: Congestive Heart Failure, Hypertension, Myocardial Infarction ([place]), Other Respiratory History: CHF Endocrine Medical History: Diabetes Type II Musculoskeletal History: Other GI Medical History: No Pertinent History, Other History: No Pertinent History Psycho-Social History: Anxiety, Depression Female Reproductive Disorders: No Pertinent History Other Medical History: HYSTERECTOMY, CARDIOMYOPATHY - Past Surgical History Past Surgical History: Yes Neuro Surgical History: No Pertinent History Cardiac: Cardiac Catheterization, Internal Defibrillator, Pacemaker Respiratory: No Pertinent History Gastrointestinal: No Pertinent History Genitourinary: No Pertinent History Musculoskeletal: No Pertinent History Female Surgical History: Hysterectomy - Social History Smoking Status: Former smoker Exposure to second hand smoke: Yes Drug Use: none Patient Lives Alone: No - Nursing Vital Signs Nursing Vital Signs: Initial Vital Signs Temperature 97.6 F 10/25/23 07:08 Pulse Rate 94 H 10/25/23 07:08 Respiratory Rate 20 10/25/23 07:08 Blood Pressure 152/94 10/25/23 07:08 O2 Sat by Pulse Oximetry 97 10/25/23 07:08 Pain Scale Pain Intensity 4 - Benji Coma Scale Best Eye Response (Benji): (4) open spontaneously Best Verbal Response (Benji): (3) inappropriate words Best Motor Response (Benji): (6) obeys commands [place] Total: 13 - Physical Exam General Appearance: mild distress, alert, anxiety Eye Exam: bilateral eye: normal inspection, PERRL, EOMI Ears, Nose, Throat Exam: normal ENT inspection, moist mucous membranes Neck Exam: normal inspection, non-tender, supple, full range of motion Respiratory: normal breath sounds, lungs clear, No chest tenderness, No respiratory distress Cardiovascular: regular rate/rhythm, normal heart sounds, normal peripheral pulses Gastrointestinal: soft, normal bowel sounds, No tenderness Pelvic Exam: not done Rectal Exam: not done Back Exam: normal inspection, normal range of motion, No CVA tenderness, No vertebral tenderness Extremity Exam: normal inspection, normal range of motion, pelvis stable Mental Status: alert, oriented x 3, cooperative director integrated Exam: normal hearing, PERRL, tongue midline Skin Exam: normal color, warm, dry SpO2 Interpretation: normal O2 Delivery: Room Air - Course Nursing assessment & vital signs reviewed: Yes EKG Interpreted by Me: RATE (92), Other (Atrial sensed ventricular paced rhythm. No acute ischemic changes on today's twelve-lead EKG.) Ordered Tests: Active Orders 24 hr Category Date Time Status Rubber Goods Assembler STAT Care 10/25/23 07:16 Active EKG-ER Only STAT Care 10/25/23 07:16 Active IV Insertion STAT Care 10/25/23 07:16 Active NPO (ED) STAT Care 10/25/23 07:16 Active Pulse Oximetry (ED) STAT Care 10/25/23 07:16 Active HEAD WITHOUT CONTRAST [CT] Stat Exams 10/25/23 07:03 Completed CBC W DIFF Stat Lab 10/25/23 07:22 Completed CMP Stat Lab 10/25/23 07:22 Completed PROTIME WITH INR Stat Lab 10/25/23 07:22 Completed UA W/RFX UR CULTURE Stat Lab 10/25/23 09:02 Received Medication Summary Discontinued Medications Generic Name Dose Route Start Last Admin Trade Name Lisa PRN Reason Stop Dose Admin Aspirin 325 mg 10/25/23 08:49 Aspirin 325 Mg Tablet.Ec PO 10/25/23 08:50 STAT ONE Ondansetron HCl Confirm 10/25/23 07:25 Ondansetron Hcl 4 Mg/2 Ml Vial Administered 10/25/23 07:26 Dose 4 mg .ROUTE .STK-MED ONE Ondansetron HCl 4 mg 10/25/23 07:28 10/25/23 07:28 Ondansetron Hcl 4 Mg/2 Ml Vial IV 10/25/23 07:29 4 mg STAT ONE Administration Ropinirole HCl 0.25 mg 10/25/23 07:32 10/25/23 07:37 Ropinirole Hcl 0.5 Mg Tablet PO 10/25/23 07:33 0.25 mg STAT ONE Administration Lab/Rad Data: Laboratory Result Diagrams 10/25/23 07:22 10/25/23 07:22 Laboratory Results 10/25/23 10/25/23 10/25/23 Range/Units 07:22 07:22 07:22 WBC 7.5 (4.0-10.5) x10^3/uL RBC 4.68 (4.1-5.4) x10^6/uL Hgb 13.9 (12.0-16.0) g/dL Hct 42.0 (35-47) % MCV 89.7 (78-100) fL MCH 29.7 (26-32) pg MCHC 33.1 (32-36) g/dL RDW 12.5 (11.5-14.0) % Plt Count 130 L (150-450) x10^3/uL MPV 12.2 H (7.5-11.0) fL Gran % 59.9 (36.0-66.0) % Immature Gran % (Auto) 0.3 (0.00-0.4) % Nucleat RBC Rel Count 0.0 (0.00-0.1) % Eos # (Auto) 0.08 (0-0.5) x10^3/uL Immature Gran # (Auto) 0.02 (0.00-0.03) x10^3u/L Absolute Lymphs (auto) 2.21 (1.0-4.6) x10^3/uL Absolute Monos (auto) 0.67 (0.0-1.3) x10^3/uL Absolute Nucleated RBC 0.00 (0.00-0.01) x10^3u/L Lymphocytes % 29.3 (24.0-44.0) % Monocytes % 8.9 (0.0-12.0) % Eosinophils % 1.1 (0.00-5.0) % Basophils % 0.5 (0.0-0.4) % Absolute Granulocytes 4.52 (1.4-6.9) x10^3/uL Basophils # 0.04 (0-0.4) x10^3/uL PT 10.9 (9.4-12.5) SECONDS INR 1.00 (0.8-3.0) Sodium 137 (135-145) mmol/L Potassium 3.9 (3.5-5.1) mmol/L Chloride 106 (98-107) mmol/L Carbon Dioxide 20 L (22-30) mmol/L Anion Gap 15.4 H (5-15) MEQ/L BUN 17 (7-17) mg/dL Creatinine 0.93 (0.52-1.04) mg/dL Estimated GFR 63.3 ML/MIN Glucose 206 H (74-106) mg/dL Calcium 9.3 (8.4-10.2) mg/dL Total Bilirubin 1.00 (0.2-1.3) mg/dL AST 26 (14-36) U/L ALT 25 (0-35) U/L Alkaline Phosphatase 57 (38-126) U/L Serum Total Protein 7.6 (6.3-8.2) g/dL Albumin 4.4 (3.5-5.0) g/dL - Progress Progress: re-examined Progress Note: 10/25/23 07:22 My medical decision making and my assignment of high complexity level in this patient is based on review of the patient's past medical history, review of the patient's medication list, review the patient drug allergy list, history present illness and physical findings on examination. The workup in this patient includes a stat CT scan of the head without contrast, intravenous line placement, twelve-lead EKG, urinalysis, CBC, CMP, PT/INR. Patient will have a teleneurology consultation and will likely require an MRI of the brain with and without contrast. Differential diagnosis includes acute stroke, urinary tract infection, intracranial hemorrhage, metabolic abnormality causing confusion and change in speech. 10/25/23 08:05 CT scan of the head without contrast was interpreted by the radiologist. The impression is nonacute senile brain 10/25/23 08:50 I interpreted the laboratory data results that have returned. We are awaiting the urinalysis. I spoke with teleneurologist Dr. Paris who evaluated the workup results as well as evaluated and interviewed this patient. She states that this patient should come in for stroke workup including MRI of the brain without contrast as well as MRI of the head and neck. She is aware that the patient does have a pacemaker defibrillator. Family states that this was turned off during a relatively recent MRI of the spine. She also states to bolus the patient with 325 mg of aspirin now and then daily baby aspirin thereafter. We will contact the telehospitalist for placement of this patient in observation. Will also obtain an orthopedic consultation for evaluation management of the patient's right ankle fracture. 10/25/23 08:54 10/25/23 09:08 I spoke with telehospitalist . I reviewed the patient history, presenting complaint and the workup results. I also spoke with him about the recommendations from the teleneurologist. We will place this patient in observation and patient will undergo the above-stated studies. Counseled pt/family regarding: lab results, diagnosis, rad results Medical Desision Making - Independent Historian Additional History obtained from: Family - Diagnostic Testing Diagnostic test were ordered, analyzed, and reviewed by me: Yes Radiological Interpretation: Reviewed by me, Teleradiologist Report - Risk of complications The pt has a high risk of morbidity or mortality based on: Decision regarding hospitilization or escalation of hosp level of care - Departure Departure Disposition: Observation Clinical Impression: Aphasia, Word finding difficulty Condition: Stable Critical Care Time: Yes Critical Care Time(excluding separately billable procedures): Critical 30-74 mins (45 minutes) Referrals: MICAH DAMON DO [Primary Care Provider] - Follow up/PCP as directed
[2023-10-25 07:23] LABS: Absolute Neutrophil Ct (ANC) 4.52 x10^3/uL (1.4-6.9); BASOPHIL % 0.5 % (0.0-0.4); Basophil (Absolute #) 0.04 x10^3/uL (0-0.4); Eosinophil % 1.1 % (0.00-5.0); Eosinophil (Absolute #) 0.08 x10^3/uL (0-0.5); Hemoglobin 13.9 g/dL (12.0-16.0); IMMATURE GRAN # 0.02 x10^3u/L (0.00-0.03); IMMATURE GRAN % 0.3 % (0.00-0.4); Lymphocyte (Absolute #) 2.21 x10^3/uL (1.0-4.6); Lymphocytes % 29.3 % (24.0-44.0); Mean Cell Volume 89.7 fL (78-100); Mean Corpuscular Hemoglobin 29.7 pg (26-32); Mean Corpuscular Hgb Concent. 33.1 g/dL (32-36); Mean Platelet Volume 12.2 fL (7.5-11.0); Monocyte (Absolute #) 0.67 x10^3/uL (0.0-1.3); Monocytes % 8.9 % (0.0-12.0); Neutrophil % 59.9 % (36.0-66.0); Platelet Count 130 x10^3/uL (150-450); Red Blood Count 4.68 x10^6/uL (4.1-5.4); Red Cell Distribution Width 12.5 % (11.5-14.0); White Blood Count 7.5 x10^3/uL (4.0-10.5)
[2023-10-25] MEDS ORDERED: Zofran 4 MG/2 ML VIAL ONE (07:25)
[2023-10-25] MEDS: Zofran 4 MG/2 ML VIAL IV ONE (07:28)
[2023-10-25 07:37] LABS: ALBUMIN 4.4 g/dL (3.5-5.0); ANION GAP 15.4 MEQ/L (5-15); Calcium 9.3 mg/dL (8.4-10.2); Creatinine 1 0.93 mg/dL (0.52-1.04); EST GLOMERULAR FILTRATION RATE 63.3 ML/MIN; PROTIME 10.9 SECONDS (9.4-12.5); Potassium 3.9 mmol/L (3.5-5.1); Total Protein 7.6 g/dL (6.3-8.2)
[2023-10-25] MEDS: Requip 0.5 MG PO ONE (07:37)
--- NOTE | 2023-10-25 08:50 | XRAY ---
Indication: Unable to find words. Confusion. Multiple contiguous images obtained through the head without contrast. Comparison: November 28, 2022 Again age-appropriate global atrophy with minimal periventricular degenerative micro-ischemia bilaterally. No acute intracranial hemorrhage, abnormal extra-axial fluid collection, or mass effect. Fourth ventricle is midline without hydrocephalus. Pascual-white matter differentiation preserved. Bony calvarium intact. Visualized paranasal sinuses and mastoid air cells are clear. Impression: Continued nonacute senile brain.
[2023-10-25 09:12] LABS: Appearance Clear (Clear); Bacteria None Seen /HPF (None Seen); Bilirubin Negative (Negative); Blood Negative (Negative); Epithelial Cells None Seen /HPF (None Seen); Glucose, Urine >=1000 mg/dL (Negative); Hyaline Casts NONE SEEN /LPF (0-2); Ketones 15 (Negative); Leukocyte Esterase Negative (Negative); Nitrite Negative (Negative); Protein,Urine Dip Negative (Negative); RBC 0-2 /HPF (0-5); Specific Gravity >=1.030 (1.005-1.030); Urobilinogen 0.2 mg/dL (0.2); WBC 0-2 /HPF (0-5)
[2023-10-25] MEDS: Ecotrin 325 MG PO ONE (09:28)
[2023-10-25] MEDS ORDERED: HUMULIN R SQ PRN (09:48)
[2023-10-25] MEDS ORDERED: TYLENOL 325 MG PO PRN (09:48)
[2023-10-25 10:09] LABS: ADD URINE CULTURE? NO (NO)
[2023-10-25] MEDS: Sodium Chloride 0.9% 1000 ML 1,000 ML IV SCH (11:01)
--- NOTE | 2023-10-25 13:08 | PCM.CONS ---
Podiatry HPI - Consult Date of Consultation Date: 10/25/23 Consulting Provider: MICHELE MACIAS DPM - HPI History of Present Illness: 78-year-old female with history diabetes mellitus recurrent history of TIA hypertension congestive heart failure, cardiomyopathy, placement of pacemaker and migraines presents for concerns over word finding/aphasia following of right ankle fracture as result of fall in her home. Patient indicates she did not lose consciousness in the fall. She denies any constitutional symptoms of infection. She denies any chest pain shortness of breath. Muscle strength to the bilateral lower extremity is within normal limits however limited secondary to fracture of right ankle and pain. Upper extremity strength is equivalent and symmetrical. At bedside this afternoon still demonstrating word searching however speech is preserved and comprehension is intact. She denies any other symptoms. Medications & Allergies Home Medications: Home Medication List Metformin HCl 1000 mg [Glucophage 1000 MG] 1,000 mg PO BID #0 02/10/12 [History Confirmed 10/25/23] Furosemide 40 mg [Lasix 40 MG] 60 mg PO DAILY 07/14/16 [History Confirmed 10/25/23] Pravastatin Sodium 40 mg PO HS 07/14/16 [History Confirmed 10/25/23] Ropinirole HCl 0.25 mg PO DAILY 07/14/16 [History Confirmed 10/25/23] Sacubitril/Valsartan [Entresto 24 mg-26 mg Tablet] 1 each PO DAILY 07/14/16 [History Confirmed 10/25/23] Ropinirole HCl 0.5 mg PO HS 02/14/21 [History Confirmed 10/25/23] Duloxetine HCl [Cymbalta] 60 mg PO DAILY 10/25/23 [History Confirmed 10/25/23] Empagliflozin [Jardiance] 25 mg PO DAILY 10/25/23 [History Confirmed 10/25/23] Famotidine 20 mg PO BID 10/25/23 [History Confirmed 10/25/23] Gabapentin 600 mg PO TID 10/25/23 [History Confirmed 10/25/23] Hydrocodone/Acetaminophen [Hydrocodone-Acetamin 5-325 mg] 1 tab PO BID 10/25/23 [History Confirmed 10/25/23] Insulin Glargine,Hum.rec.anlog [Lantus] 10 units SQ DAILY 10/25/23 [History Confirmed 10/25/23] Insulin Lispro [Humalog Kwikpen U-100] 10 units SQ TIDWMEALS 10/25/23 [History Confirmed 10/25/23] Metoprolol Succinate 25 mg Xl* [Toprol-Xl 25MG Tablets] 25 mg PO DAILY 10/25/23 [History Confirmed 10/25/23] Potassium Chloride 10 meq PO DAILY 10/25/23 [History Confirmed 10/25/23] Trazodone HCl 50 mg [Desyrel 50 mg] 50 mg PO HS 10/25/23 [History Confirmed 10/25/23] Allergies/Adverse Reactions: Allergies Allergy/AdvReac Type Severity Reaction Status Date / Time iopamidol [From Isovue-M] Allergy Severe Verified 10/24/23 10:32 morphine AdvReac Severe BEHAVIOR Verified 10/24/23 10:32 - Past Medical History Past Medical History: Yes Neurological History: Migraines, TIA ENT History: Cataracts Cardiac History: Congestive Heart Failure, Hypertension, Myocardial Infarction ([place]), Other Respiratory History: CHF Endocrine Medical History: Diabetes Type II Musculoskelatal History: Other GI Medical History: No Pertinent History, Other History: No Pertinent History Pyscho-Social History: Anxiety, Depression Reproductive Disorders: No Pertinent History Comment: HYSTERECTOMY, CARDIOMYOPATHY - Female History Are you now?: No - Past Surgical History Past Surgical History: Yes Neuro Surgical History: No Pertinent History Cardiac History: Cardiac Catheterization, Internal Defibrillator, Pacemaker Respiratory Surgery: No Pertinent History GI Surgical History: No Pertinent History Genitourinary Surgical Hx: No Pertinent History Musculskeletal Surgical Hx: No Pertinent History Female Surgical History: Hysterectomy - Social History Smoking Status: Former smoker Exposure to second hand smoke: Yes Alcohol: None Drug Use: none - Social Determinants of Health Will the patient participate in the screening: Yes Do you worry about a steady place to live?: No Do you have any problems with any of the following?: No known problems In the past 12 months,have you had to go without utilities?: No Have you or anyone in your house had to go without enough: No Transportation Issues: No Has anyone in your support network made you feel unsafe?: No Does the patient want assistance with any of the above?: No Physical Exam - General General Appearance: no apparent distress - Neuro Neurologic: Epicritic and protopathic - Vascular Peripheral Pulses: Posterior tibialis: 2+ (Per emergency department), Dorsalis- Pedis: 2+ ([facility] emergency department popliteal pulse palpable) Capillary Refill Time: < 3 seconds Hair Growth: Symmetrical and Bilateral Varicosities: Negtive - Narrative Narrative Physical Exam: Podiatry Physical Exam Results - Labs Lab/Micro Results: Lab Results-Last 24 Hours 10/25/23 10/25/23 10/25/23 Range/Units 07:22 07:22 07:22 WBC 7.5 (4.0-10.5) x10^3/uL RBC 4.68 (4.1-5.4) x10^6/uL Hgb 13.9 (12.0-16.0) g/dL Hct 42.0 (35-47) % MCV 89.7 (78-100) fL MCH 29.7 (26-32) pg MCHC 33.1 (32-36) g/dL RDW 12.5 (11.5-14.0) % Plt Count 130 L (150-450) x10^3/uL MPV 12.2 H (7.5-11.0) fL Gran % 59.9 (36.0-66.0) % Immature Gran % (Auto) 0.3 (0.00-0.4) % Nucleat RBC Rel Count 0.0 (0.00-0.1) % Eos # (Auto) 0.08 (0-0.5) x10^3/uL Immature Gran # (Auto) 0.02 (0.00-0.03) x10^3u/L Absolute Lymphs (auto) 2.21 (1.0-4.6) x10^3/uL Absolute Monos (auto) 0.67 (0.0-1.3) x10^3/uL Absolute Nucleated RBC 0.00 (0.00-0.01) x10^3u/L Lymphocytes % 29.3 (24.0-44.0) % Monocytes % 8.9 (0.0-12.0) % Eosinophils % 1.1 (0.00-5.0) % Basophils % 0.5 (0.0-0.4) % Absolute Granulocytes 4.52 (1.4-6.9) x10^3/uL Basophils # 0.04 (0-0.4) x10^3/uL PT 10.9 (9.4-12.5) SECONDS INR 1.00 (0.8-3.0) Sodium 137 (135-145) mmol/L Potassium 3.9 (3.5-5.1) mmol/L Chloride 106 (98-107) mmol/L Carbon Dioxide 20 L (22-30) mmol/L Anion Gap 15.4 H (5-15) MEQ/L BUN 17 (7-17) mg/dL Creatinine 0.93 (0.52-1.04) mg/dL Estimated GFR 63.3 ML/MIN Glucose 206 H (74-106) mg/dL POC Glucometer (74 to 106) mg/dL Calcium 9.3 (8.4-10.2) mg/dL Total Bilirubin 1.00 (0.2-1.3) mg/dL AST 26 (14-36) U/L ALT 25 (0-35) U/L Alkaline Phosphatase 57 (38-126) U/L Serum Total Protein 7.6 (6.3-8.2) g/dL Albumin 4.4 (3.5-5.0) g/dL Prealbumin (17.6-36.0) mg/dL Urine Color (Yellow) Urine Appearance (Clear) Urine pH (4.6-8.0) Ur Specific [place] (1.005-1.030) Urine Protein (Negative) Urine Glucose (UA) (Negative) mg/dL Urine Ketones (Negative) Urine Blood (Negative) Urine Nitrite (Negative) Urine Bilirubin (Negative) Urine Urobilinogen (0.2) mg/dL Ur Leukocyte Esterase (Negative) U Hyaline Cast (Auto) (0-2) /LPF Urine Microscopic RBC (0-5) /HPF Urine Microscopic WBC (0-5) /HPF Ur Epithelial Cells (None Seen) /HPF Urine Bacteria (None Seen) /HPF Urine Culture Reflexed (NO) 10/25/23 10/25/23 10/25/23 Range/Units 07:22 09:02 11:45 WBC (4.0-10.5) x10^3/uL RBC (4.1-5.4) x10^6/uL Hgb (12.0-16.0) g/dL Hct (35-47) % MCV (78-100) fL MCH (26-32) pg MCHC (32-36) g/dL RDW (11.5-14.0) % Plt Count (150-450) x10^3/uL MPV (7.5-11.0) fL Gran % (36.0-66.0) % Immature Gran % (Auto) (0.00-0.4) % Nucleat RBC Rel Count (0.00-0.1) % Eos # (Auto) (0-0.5) x10^3/uL Immature Gran # (Auto) (0.00-0.03) x10^3u/L Absolute Lymphs (auto) (1.0-4.6) x10^3/uL Absolute Monos (auto) (0.0-1.3) x10^3/uL Absolute Nucleated RBC (0.00-0.01) x10^3u/L Lymphocytes % (24.0-44.0) % Monocytes % (0.0-12.0) % Eosinophils % (0.00-5.0) % Basophils % (0.0-0.4) % Absolute Granulocytes (1.4-6.9) x10^3/uL Basophils # (0-0.4) x10^3/uL PT (9.4-12.5) SECONDS INR (0.8-3.0) Sodium (135-145) mmol/L Potassium (3.5-5.1) mmol/L Chloride (98-107) mmol/L Carbon Dioxide (22-30) mmol/L Anion Gap (5-15) MEQ/L BUN (7-17) mg/dL Creatinine (0.52-1.04) mg/dL Estimated GFR ML/MIN Glucose (74-106) mg/dL POC Glucometer 145 H (74 to 106) mg/dL Calcium (8.4-10.2) mg/dL Total Bilirubin (0.2-1.3) mg/dL AST (14-36) U/L ALT (0-35) U/L Alkaline Phosphatase (38-126) U/L Serum Total Protein (6.3-8.2) g/dL Albumin (3.5-5.0) g/dL Prealbumin 23.25 (17.6-36.0) mg/dL Urine Color Yellow (Yellow) Urine Appearance Clear (Clear) Urine pH 5.0 (4.6-8.0) Ur Specific [place] >=1.030 A (1.005-1.030) Urine Protein Negative (Negative) Urine Glucose (UA) >=1000 A (Negative) mg/dL Urine Ketones 15 A (Negative) Urine Blood Negative (Negative) Urine Nitrite Negative (Negative) Urine Bilirubin Negative (Negative) Urine Urobilinogen 0.2 (0.2) mg/dL Ur Leukocyte Esterase Negative (Negative) U Hyaline Cast (Auto) NONE SEEN (0-2) /LPF Urine Microscopic RBC 0-2 (0-5) /HPF Urine Microscopic WBC 0-2 (0-5) /HPF Ur Epithelial Cells None Seen (None Seen) /HPF Urine Bacteria None Seen (None Seen) /HPF Urine Culture Reflexed NO (NO) - Radiology Impressions Radiology Exams & Impressions: Radiology Procedures Category Date Time Status HEAD WITHOUT CONTRAST [CT] Stat Exams 10/25/23 07:03 Completed - Other Procedures and Tests Respiratory Therapy 10/25/23 09:48 EKG REPEAT IN AM Assessment/Plan (1) TIA (transient ischemic attack) Current Visit: No Status: Resolved Code(s): G45.9 - TRANSIENT CEREBRAL ISCHEMIC ATTACK, UNSPECIFIED (2) Frequent falls Current Visit: No Status: Acute Code(s): R29.6 - REPEATED FALLS (3) Ankle fracture, bimalleolar, closed Current Visit: No Status: Acute Assessment & Plan: Radiographs reviewed demonstrating unstable fracture. Patient will need to proceed with open reduction internal fixation for bimalleolar fracture to the right ankle. Patient is not n.p.o. at this moment. Will plan to proceed tomorrow morning. N.p.o. at midnight Consent to read open reduction internal fixation right ankle bimalleolar fracture. All other indicated procedures Okay for sips of water with medication. Code(s): S82.843A - DISPLACED BIMALLEOLAR FRACTURE OF UNSP LOWER LEG, INIT (4) Aphasia Current Visit: Yes Status: Acute Assessment & Plan: Source finding at this time. CT of brain negative for any acute processes will proceed with CTA for better assessment. Discussed with nursing staff. Code(s): R47.01 - APHASIA (5) Word finding difficulty Current Visit: Yes Status: Acute Code(s): R47.89 - OTHER SPEECH DISTURBANCES (6) Diabetes mellitus Current Visit: No Status: Chronic Qualifiers: Code(s): E11.9 - TYPE 2 DIABETES MELLITUS WITHOUT COMPLICATIONS
--- NOTE | 2023-10-25 13:15 | PCM.HP ---
History of Present Illness - Chief Complaint Chief Complaint: Aphasia Date: 10/25/23 History of Present Illness: is a 78 year old female with a pmhx of DM, HLD, CHF, CAD, defib/pacemaker, migraines, TIA, and CO who presented to [facility] ED 10/25/23 with complaints of expressive aphasia and associated BIGGS that started early this morning. Patient was evaluated in ED 10/24/23 after a ground level fall at home resulting in a right ankle fracture which is scheduled for surgical repair tomorrow. Patient did not have LOC or did she hit her head when she fell. In ED, vitals unremarkable. CT head showing nonacute senile brain. Lab findings with co2 at 20, Gap 15.4, glucose at 206. Neurology consulted with recs for MRI which we are unable to obtain due to her internal pacemaker/difibulator. Will get CTA head/carotid doppler. - Review of Systems Constitutional: No Symptoms Eyes: No Symptoms Ears, Nose, & Throat: No Symptoms Respiratory: No Symptoms Cardiac: No Symptoms Abdominal/Gastrointestinal: No Symptoms Genitourinary Symptoms: No Symptoms Musculoskeletal: Joint Pain (right ankle) Skin: No Symptoms Neurological: Speech Changes, Other (expressive aphasia) Psychological: No Symptoms Endocrine: No Symptoms Hematologic/Lymphatic: No Symptoms Immunological/Allergic: No Symptoms Medications & Allergies Home Medications: Home Medication List Metformin HCl 1000 mg [Glucophage 1000 MG] 1,000 mg PO BID #0 02/10/12 [History Confirmed 10/25/23] Furosemide 40 mg [Lasix 40 MG] 60 mg PO DAILY 07/14/16 [History Confirmed 10/25/23] Pravastatin Sodium 40 mg PO HS 07/14/16 [History Confirmed 10/25/23] Ropinirole HCl 0.25 mg PO DAILY 07/14/16 [History Confirmed 10/25/23] Sacubitril/Valsartan [Entresto 24 mg-26 mg Tablet] 1 each PO DAILY 07/14/16 [History Confirmed 10/25/23] Ropinirole HCl 0.5 mg PO HS 02/14/21 [History Confirmed 10/25/23] Duloxetine HCl [Cymbalta] 60 mg PO DAILY 10/25/23 [History Confirmed 10/25/23] Empagliflozin [Jardiance] 25 mg PO DAILY 10/25/23 [History Confirmed 10/25/23] Famotidine 20 mg PO BID 10/25/23 [History Confirmed 10/25/23] Gabapentin 600 mg PO TID 10/25/23 [History Confirmed 10/25/23] Hydrocodone/Acetaminophen [Hydrocodone-Acetamin 5-325 mg] 1 tab PO BID 10/25/23 [History Confirmed 10/25/23] Insulin Glargine,Hum.rec.anlog [Lantus] 10 units SQ DAILY 10/25/23 [History Confirmed 10/25/23] Insulin Lispro [Humalog Kwikpen U-100] 10 units SQ TIDWMEALS 10/25/23 [History Confirmed 10/25/23] Metoprolol Succinate 25 mg Xl* [Toprol-Xl 25MG Tablets] 25 mg PO DAILY 10/25/23 [History Confirmed 10/25/23] Potassium Chloride 10 meq PO DAILY 10/25/23 [History Confirmed 10/25/23] Trazodone HCl 50 mg [Desyrel 50 mg] 50 mg PO HS 10/25/23 [History Confirmed 10/25/23] Allergies/Adverse Reactions: Allergies Allergy/AdvReac Type Severity Reaction Status Date / Time iopamidol [From Isovue-M] Allergy Severe Verified 10/24/23 10:32 morphine AdvReac Severe BEHAVIOR Verified 10/24/23 10:32 - Past Medical History Past Medical History: Yes Neurological History: Migraines, TIA ENT History: Cataracts Cardiac History: Congestive Heart Failure, Hypertension, Myocardial Infarction ([place]), Other Respiratory History: CHF Endocrine Medical History: Diabetes Type II Musculoskelatal History: Other GI Medical History: No Pertinent History, Other History: No Pertinent History Pyscho-Social History: Anxiety, Depression Reproductive Disorders: No Pertinent History Comment: HYSTERECTOMY, CARDIOMYOPATHY - Female History Are you now?: No - Past Surgical History Past Surgical History: Yes Neuro Surgical History: No Pertinent History Cardiac History: Cardiac Catheterization, Internal Defibrillator, Pacemaker Respiratory Surgery: No Pertinent History GI Surgical History: No Pertinent History Genitourinary Surgical Hx: No Pertinent History Musculskeletal Surgical Hx: No Pertinent History Female Surgical History: Hysterectomy - Social History Smoking Status: Former smoker Exposure to second hand smoke: Yes Alcohol: None Drug Use: none - Social Determinants of Health Will the patient participate in the screening: Yes Do you worry about a steady place to live?: No Do you have any problems with any of the following?: No known problems In the past 12 months,have you had to go without utilities?: No Have you or anyone in your house had to go without enough: No Transportation Issues: No Has anyone in your support network made you feel unsafe?: No Does the patient want assistance with any of the above?: No - Physical Exam Vital Signs: Vital Signs - 24 hr Temp Pulse Resp BP BP Pulse Ox 10/25/23 09:48 98.3 F 92 H 18 135/68 94 L 10/25/23 09:31 119/60 10/25/23 09:16 95 H 19 102/63 95 10/25/23 09:02 102 H 20 136/70 95 10/25/23 08:46 99 H 19 94/74 93 L 10/25/23 08:40 97 H 23 10/25/23 08:33 96 H 14 10/25/23 08:16 97 H 21 127/64 10/25/23 08:05 94 L 10/25/23 08:01 93 H 22 113/70 10/25/23 07:59 94 H 18 129/70 10/25/23 07:47 93 H 16 141/60 10/25/23 07:08 97.6 F 94 H 20 152/94 97 General Appearance: no apparent distress Neurologic Exam: alert, oriented x 3, cooperative, molasses feed mixer II-XII nml as tested, sensation nml Eye Exam: PERRL/EOMI Ears, Nose, Throat Exam: normal ENT inspection Neck Exam: normal inspection Respiratory Exam: normal breath sounds, lungs clear Cardiovascular Exam: regular rate/rhythm, normal heart sounds Gastrointestinal/Abdomen Exam: soft, normal bowel sounds Pelvic Exam: not done Rectal Exam: deferred Back Exam: normal inspection Extremity Exam: normal range of motion, limited range of motion (RLE) Skin Exam: other (Right ankle with dressing and stacy bandage) Results - Labs Lab/Micro Results: Lab Results-Last 24 Hours 10/25/23 10/25/23 10/25/23 Range/Units 07:22 07:22 07:22 WBC 7.5 (4.0-10.5) x10^3/uL RBC 4.68 (4.1-5.4) x10^6/uL Hgb 13.9 (12.0-16.0) g/dL Hct 42.0 (35-47) % MCV 89.7 (78-100) fL MCH 29.7 (26-32) pg MCHC 33.1 (32-36) g/dL RDW 12.5 (11.5-14.0) % Plt Count 130 L (150-450) x10^3/uL MPV 12.2 H (7.5-11.0) fL Gran % 59.9 (36.0-66.0) % Immature Gran % (Auto) 0.3 (0.00-0.4) % Nucleat RBC Rel Count 0.0 (0.00-0.1) % Eos # (Auto) 0.08 (0-0.5) x10^3/uL Immature Gran # (Auto) 0.02 (0.00-0.03) x10^3u/L Absolute Lymphs (auto) 2.21 (1.0-4.6) x10^3/uL Absolute Monos (auto) 0.67 (0.0-1.3) x10^3/uL Absolute Nucleated RBC 0.00 (0.00-0.01) x10^3u/L Lymphocytes % 29.3 (24.0-44.0) % Monocytes % 8.9 (0.0-12.0) % Eosinophils % 1.1 (0.00-5.0) % Basophils % 0.5 (0.0-0.4) % Absolute Granulocytes 4.52 (1.4-6.9) x10^3/uL Basophils # 0.04 (0-0.4) x10^3/uL PT 10.9 (9.4-12.5) SECONDS INR 1.00 (0.8-3.0) Sodium 137 (135-145) mmol/L Potassium 3.9 (3.5-5.1) mmol/L Chloride 106 (98-107) mmol/L Carbon Dioxide 20 L (22-30) mmol/L Anion Gap 15.4 H (5-15) MEQ/L BUN 17 (7-17) mg/dL Creatinine 0.93 (0.52-1.04) mg/dL Estimated GFR 63.3 ML/MIN Glucose 206 H (74-106) mg/dL POC Glucometer (74 to 106) mg/dL Calcium 9.3 (8.4-10.2) mg/dL Total Bilirubin 1.00 (0.2-1.3) mg/dL AST 26 (14-36) U/L ALT 25 (0-35) U/L Alkaline Phosphatase 57 (38-126) U/L Serum Total Protein 7.6 (6.3-8.2) g/dL Albumin 4.4 (3.5-5.0) g/dL Prealbumin (17.6-36.0) mg/dL Urine Color (Yellow) Urine Appearance (Clear) Urine pH (4.6-8.0) Ur Specific [place] (1.005-1.030) Urine Protein (Negative) Urine Glucose (UA) (Negative) mg/dL Urine Ketones (Negative) Urine Blood (Negative) Urine Nitrite (Negative) Urine Bilirubin (Negative) Urine Urobilinogen (0.2) mg/dL Ur Leukocyte Esterase (Negative) U Hyaline Cast (Auto) (0-2) /LPF Urine Microscopic RBC (0-5) /HPF Urine Microscopic WBC (0-5) /HPF Ur Epithelial Cells (None Seen) /HPF Urine Bacteria (None Seen) /HPF Urine Culture Reflexed (NO) 10/25/23 10/25/23 10/25/23 Range/Units 07:22 09:02 11:45 WBC (4.0-10.5) x10^3/uL RBC (4.1-5.4) x10^6/uL Hgb (12.0-16.0) g/dL Hct (35-47) % MCV (78-100) fL MCH (26-32) pg MCHC (32-36) g/dL RDW (11.5-14.0) % Plt Count (150-450) x10^3/uL MPV (7.5-11.0) fL Gran % (36.0-66.0) % Immature Gran % (Auto) (0.00-0.4) % Nucleat RBC Rel Count (0.00-0.1) % Eos # (Auto) (0-0.5) x10^3/uL Immature Gran # (Auto) (0.00-0.03) x10^3u/L Absolute Lymphs (auto) (1.0-4.6) x10^3/uL Absolute Monos (auto) (0.0-1.3) x10^3/uL Absolute Nucleated RBC (0.00-0.01) x10^3u/L Lymphocytes % (24.0-44.0) % Monocytes % (0.0-12.0) % Eosinophils % (0.00-5.0) % Basophils % (0.0-0.4) % Absolute Granulocytes (1.4-6.9) x10^3/uL Basophils # (0-0.4) x10^3/uL PT (9.4-12.5) SECONDS INR (0.8-3.0) Sodium (135-145) mmol/L Potassium (3.5-5.1) mmol/L Chloride (98-107) mmol/L Carbon Dioxide (22-30) mmol/L Anion Gap (5-15) MEQ/L BUN (7-17) mg/dL Creatinine (0.52-1.04) mg/dL Estimated GFR ML/MIN Glucose (74-106) mg/dL POC Glucometer 145 H (74 to 106) mg/dL Calcium (8.4-10.2) mg/dL Total Bilirubin (0.2-1.3) mg/dL AST (14-36) U/L ALT (0-35) U/L Alkaline Phosphatase (38-126) U/L Serum Total Protein (6.3-8.2) g/dL Albumin (3.5-5.0) g/dL Prealbumin 23.25 (17.6-36.0) mg/dL Urine Color Yellow (Yellow) Urine Appearance Clear (Clear) Urine pH 5.0 (4.6-8.0) Ur Specific [place] >=1.030 A (1.005-1.030) Urine Protein Negative (Negative) Urine Glucose (UA) >=1000 A (Negative) mg/dL Urine Ketones 15 A (Negative) Urine Blood Negative (Negative) Urine Nitrite Negative (Negative) Urine Bilirubin Negative (Negative) Urine Urobilinogen 0.2 (0.2) mg/dL Ur Leukocyte Esterase Negative (Negative) U Hyaline Cast (Auto) NONE SEEN (0-2) /LPF Urine Microscopic RBC 0-2 (0-5) /HPF Urine Microscopic WBC 0-2 (0-5) /HPF Ur Epithelial Cells None Seen (None Seen) /HPF Urine Bacteria None Seen (None Seen) /HPF Urine Culture Reflexed NO (NO) - Radiology Impressions Radiology Exams & Impressions: Radiology Procedures Category Date Time Status HEAD WITHOUT CONTRAST [CT] Stat Exams 10/25/23 07:03 Completed - Other Procedures and Tests Respiratory Therapy 10/25/23 09:48 EKG REPEAT IN AM Assessment/Plan (1) Expressive aphasia Current Visit: Yes Status: Acute Assessment & Plan: -neurology consulted with recs for MRI which we are unable to obtain due to pacemaker/[place]- unable to turn off with magnet at this facility, will order CTA head -CT head negative - could be complicated migraine as pt does have history -Patient already on plavix -ASA given in ED at 324mg, recs to continue ASA 81mg -Carotid US Code(s): R47.01 - APHASIA (2) HLD (hyperlipidemia) Current Visit: Yes Status: Acute Assessment & Plan: -Continue home statin Code(s): E78.5 - HYPERLIPIDEMIA, UNSPECIFIED (3) HTN (hypertension) Current Visit: Yes Status: Acute Assessment & Plan: -stable continue home meds Code(s): I10 - ESSENTIAL (PRIMARY) HYPERTENSION (4) CHF (congestive heart failure) Current Visit: Yes Status: Acute Assessment & Plan: -Does not appear to be in exacerbation, no recent echo on file, will continue home medications Code(s): I50.9 - HEART FAILURE, UNSPECIFIED (5) CAD (coronary artery disease) Current Visit: Yes Status: Acute Assessment & Plan: -Continue home meds Entresto/jardiance Code(s): I25.10 - ATHSCL HEART DISEASE OF [place] CORONARY ARTERY W/O ANG PCTRS (6) Ankle fracture, bimalleolar, closed Current Visit: No Status: Acute Assessment & Plan: -Podiatry note reviewed, agree with plan for open reduction internal fixatin for bimalleolar fracture to right ankle as seen on xr -NPO after midnight -May have to use local for anesthesia, will discuss with podiatry Code(s): S82.843A - DISPLACED BIMALLEOLAR FRACTURE OF UNSP LOWER LEG, INIT (7) DM2 (diabetes mellitus, type 2) Current Visit: No Status: Chronic Assessment & Plan: -hold metformin -ADA diet -SSI/lispro/ when diet resumed -glargine (8) HTN (hypertension) Current Visit: No Status: Chronic Assessment & Plan: -stable continue home medications VTE: SCD PPI: protonix Dispo: 2-3 days Code(s): I10 - ESSENTIAL (PRIMARY) HYPERTENSION
[2023-10-25] MEDS ORDERED: HUMALOG SQ PRN (16:09)
--- NOTE | 2023-10-25 16:47 | XRAY ---
Occasioning: Expressive aphasia. Two-dimensional sonogram and color Doppler imaging carotid arteries in the neck performed. Comparison: February 14, 2021 Examination right carotid circulation demonstrates widely patent common carotid, carotid bulb, internal carotid, and external carotid arteries. PSV CCA is 93 cm/s. PSV ICA is 84 cm/s. ICA/CCA ratio is 0.9. Normal antegrade vertebral artery flow. Examination left carotid circulation now demonstrates minimal heterogeneous plaquing at the level of the bulb. Widely patent common carotid, internal carotid, and external carotid arteries. PSV CCA is 76 cm/s. PSV ICA is 81 cm/s. ICA/CCA ratio is 1.1. Normal antegrade vertebral artery flow. Impression: Minimal arteriosclerotic plaquing left carotid bulb. Remaining left and right carotid arteries widely patent. Velocity measurements and ratios again negative for hemodynamically significant flow limiting stenosis.
[2023-10-25] MEDS: Cymbalta 30 MG Capsule PO SCH (16:59)
[2023-10-25] MEDS: ENTRESTO 49 MG-51 MG TABLET PO SCH (16:59)
[2023-10-25] MEDS: JARDIANCE PO SCH (17:00)
[2023-10-25] MEDS ORDERED: NON-FORMULARY ITEM (Insulin Lispro [Humalog Kwikpen U-100] 100 UNIT/ML Insuln.Pen) SQ SCH (17:00)
[2023-10-25] MEDS: Klor Con PO SCH (17:00)
[2023-10-25] MEDS: HUMALOG SQ SCH (17:00)
[2023-10-25] MEDS: Lantus Insulin SQ SCH (17:00)
[2023-10-25] MEDS: Toprol-Xl 25MG Tablets PO SCH (17:01)
[2023-10-25] MEDS: LASIX 20 MG PO SCH (17:01)
[2023-10-25 19:03] VITALS: RESP 16
[2023-10-25] MEDS: ZOCOR 20MG PO SCH (22:20)
[2023-10-25] MEDS: NEURONTIN PO SCH (22:20)
[2023-10-25] MEDS: Requip 0.5 MG PO SCH (22:20)
[2023-10-25] MEDS: Pepcid 20 MG PO SCH (22:20)
[2023-10-26 05:16] LABS: Absolute Neutrophil Ct (ANC) 2.45 x10^3/uL (1.4-6.9); BASOPHIL % 0.6 % (0.0-0.4); Basophil (Absolute #) 0.03 x10^3/uL (0-0.4); Eosinophil % 2.5 % (0.00-5.0); Eosinophil (Absolute #) 0.13 x10^3/uL (0-0.5); Hematocrit 42.1 % (35-47); Hemoglobin 13.6 g/dL (12.0-16.0); IMMATURE GRAN # 0.02 x10^3u/L (0.00-0.03); IMMATURE GRAN % 0.4 % (0.00-0.4); Lymphocyte (Absolute #) 2.11 x10^3/uL (1.0-4.6); Mean Cell Volume 91.3 fL (78-100); Mean Corpuscular Hemoglobin 29.5 pg (26-32); Mean Corpuscular Hgb Concent. 32.3 g/dL (32-36); Mean Platelet Volume 12.4 fL (7.5-11.0); Monocyte (Absolute #) 0.54 x10^3/uL (0.0-1.3); Monocytes % 10.2 % (0.0-12.0); Neutrophil % 46.3 % (36.0-66.0); Platelet Count 128 x10^3/uL (150-450); Red Blood Count 4.61 x10^6/uL (4.1-5.4); Red Cell Distribution Width 12.5 % (11.5-14.0); White Blood Count 5.3 x10^3/uL (4.0-10.5)
--- NOTE | 2023-10-26 05:34 | PCM.NOTE ---
Date and Time: 10/26/23 0532 Subjective Assessment: is a 78 year old female with a pmhx of DM, HLD, CHF, CAD, defib/pacemaker, migraines, TIA, and [place] who presented to [facility] ED 10/25/23 with complaints of expressive aphasia and associated BIGGS that started early this morning. Patient has multiple previous admissions for this. Patient was evaluated in ED 10/24/23 after a ground level fall at home resulting in a right ankle fracture which is scheduled for surgical repair 10/26/23. Patient did not have LOC or did she hit her head when she fell. In ED, vitals unremarkable. CT head showing nonacute senile brain. 206. Neurology consulted with recs for MRI which we are unable to obtain due to her internal pacemaker/difibulator. Will get repeat CThead -carotid doppler wnl. Most likely complicated migraine. Objective Exam Wound Assessment: Skin/Wound Assessment Wound/Incision Assessment Start: 10/25/23 10:42 Text: Status: Active Freq: Q6H Protocol: Document 10/26/23 01:57 MP (Rec: 10/26/23 01:57 MP [id number]) Wound Photo Photo Taken No Objective Data Vital Signs: Vital Signs - 24 hr Temp Pulse Resp BP BP Pulse Ox 10/26/23 04:00 97.3 F 83 16 142/67 90 L 10/25/23 22:00 96.9 F 81 16 136/63 91 L 10/25/23 18:00 96.9 F 93 H 16 124/59 93 L 10/25/23 14:00 98.3 F 95 H 18 116/62 91 L 10/25/23 09:48 98.3 F 92 H 18 135/68 94 L 10/25/23 09:31 119/60 10/25/23 09:16 95 H 19 102/63 95 10/25/23 09:02 102 H 20 136/70 95 10/25/23 08:46 99 H 19 94/74 93 L 10/25/23 08:40 97 H 23 10/25/23 08:33 96 H 14 10/25/23 08:16 97 H 21 127/64 10/25/23 08:05 94 L 10/25/23 08:01 93 H 22 113/70 10/25/23 07:59 94 H 18 129/70 10/25/23 07:47 93 H 16 141/60 10/25/23 07:08 97.6 F 94 H 20 152/94 97 Pain Assessment - Last Documented Pain Intensity 0 Intake and Output: Intake & Output 10/23/23 10/24/23 10/25/23 10/26/23 11:59 11:59 11:59 11:59 Intake Total 1068 Balance 1068 Weight 74.1 kg Lab Results: Lab Results-Last 24 Hours 10/25/23 10/25/23 10/25/23 Range/Units 05:00 07:22 07:22 WBC 7.5 (4.0-10.5) x10^3/uL RBC 4.68 (4.1-5.4) x10^6/uL Hgb 13.9 (12.0-16.0) g/dL Hct 42.0 (35-47) % MCV 89.7 (78-100) fL MCH 29.7 (26-32) pg MCHC 33.1 (32-36) g/dL RDW 12.5 (11.5-14.0) % Plt Count 130 L (150-450) x10^3/uL MPV 12.2 H (7.5-11.0) fL Gran % 59.9 (36.0-66.0) % Immature Gran % (Auto) 0.3 (0.00-0.4) % Nucleat RBC Rel Count 0.0 (0.00-0.1) % Eos # (Auto) 0.08 (0-0.5) x10^3/uL Immature Gran # (Auto) 0.02 (0.00-0.03) x10^3u/L Absolute Lymphs (auto) 2.21 (1.0-4.6) x10^3/uL Absolute Monos (auto) 0.67 (0.0-1.3) x10^3/uL Absolute Nucleated RBC 0.00 (0.00-0.01) x10^3u/L Lymphocytes % 29.3 (24.0-44.0) % Monocytes % 8.9 (0.0-12.0) % Eosinophils % 1.1 (0.00-5.0) % Basophils % 0.5 (0.0-0.4) % Absolute Granulocytes 4.52 (1.4-6.9) x10^3/uL Basophils # 0.04 (0-0.4) x10^3/uL PT (9.4-12.5) SECONDS INR (0.8-3.0) Sodium 137 (135-145) mmol/L Potassium 3.9 (3.5-5.1) mmol/L Chloride 106 (98-107) mmol/L Carbon Dioxide 20 L (22-30) mmol/L Anion Gap 15.4 H (5-15) MEQ/L BUN 17 (7-17) mg/dL Creatinine 0.93 (0.52-1.04) mg/dL Estimated GFR 63.3 ML/MIN Glucose 206 H (74-106) mg/dL POC Glucometer (74 to 106) mg/dL Hemoglobin A1c (4.5-6.0) % Calcium 9.3 (8.4-10.2) mg/dL Total Bilirubin 1.00 (0.2-1.3) mg/dL AST 26 (14-36) U/L ALT 25 (0-35) U/L Alkaline Phosphatase 57 (38-126) U/L Serum Total Protein 7.6 (6.3-8.2) g/dL Albumin 4.4 (3.5-5.0) g/dL Prealbumin (17.6-36.0) mg/dL 25-OH Vitamin D Total 24.4 L (30-100) ng/mL Urine Color (Yellow) Urine Appearance (Clear) Urine pH (4.6-8.0) Ur Specific [place] (1.005-1.030) Urine Protein (Negative) Urine Glucose (UA) (Negative) mg/dL Urine Ketones (Negative) Urine Blood (Negative) Urine Nitrite (Negative) Urine Bilirubin (Negative) Urine Urobilinogen (0.2) mg/dL Ur Leukocyte Esterase (Negative) U Hyaline Cast (Auto) (0-2) /LPF Urine Microscopic RBC (0-5) /HPF Urine Microscopic WBC (0-5) /HPF Ur Epithelial Cells (None Seen) /HPF Urine Bacteria (None Seen) /HPF Urine Culture Reflexed (NO) 10/25/23 10/25/23 10/25/23 Range/Units 07:22 07:22 07:22 WBC (4.0-10.5) x10^3/uL RBC (4.1-5.4) x10^6/uL Hgb (12.0-16.0) g/dL Hct (35-47) % MCV (78-100) fL MCH (26-32) pg MCHC (32-36) g/dL RDW (11.5-14.0) % Plt Count (150-450) x10^3/uL MPV (7.5-11.0) fL Gran % (36.0-66.0) % Immature Gran % (Auto) (0.00-0.4) % Nucleat RBC Rel Count (0.00-0.1) % Eos # (Auto) (0-0.5) x10^3/uL Immature Gran # (Auto) (0.00-0.03) x10^3u/L Absolute Lymphs (auto) (1.0-4.6) x10^3/uL Absolute Monos (auto) (0.0-1.3) x10^3/uL Absolute Nucleated RBC (0.00-0.01) x10^3u/L Lymphocytes % (24.0-44.0) % Monocytes % (0.0-12.0) % Eosinophils % (0.00-5.0) % Basophils % (0.0-0.4) % Absolute Granulocytes (1.4-6.9) x10^3/uL Basophils # (0-0.4) x10^3/uL PT 10.9 (9.4-12.5) SECONDS INR 1.00 (0.8-3.0) Sodium (135-145) mmol/L Potassium (3.5-5.1) mmol/L Chloride (98-107) mmol/L Carbon Dioxide (22-30) mmol/L Anion Gap (5-15) MEQ/L BUN (7-17) mg/dL Creatinine (0.52-1.04) mg/dL Estimated GFR ML/MIN Glucose (74-106) mg/dL POC Glucometer (74 to 106) mg/dL Hemoglobin A1c 7.62 H (4.5-6.0) % Calcium (8.4-10.2) mg/dL Total Bilirubin (0.2-1.3) mg/dL AST (14-36) U/L ALT (0-35) U/L Alkaline Phosphatase (38-126) U/L Serum Total Protein (6.3-8.2) g/dL Albumin (3.5-5.0) g/dL Prealbumin 23.25 (17.6-36.0) mg/dL 25-OH Vitamin D Total (30-100) ng/mL Urine Color (Yellow) Urine Appearance (Clear) Urine pH (4.6-8.0) Ur Specific [place] (1.005-1.030) Urine Protein (Negative) Urine Glucose (UA) (Negative) mg/dL Urine Ketones (Negative) Urine Blood (Negative) Urine Nitrite (Negative) Urine Bilirubin (Negative) Urine Urobilinogen (0.2) mg/dL Ur Leukocyte Esterase (Negative) U Hyaline Cast (Auto) (0-2) /LPF Urine Microscopic RBC (0-5) /HPF Urine Microscopic WBC (0-5) /HPF Ur Epithelial Cells (None Seen) /HPF Urine Bacteria (None Seen) /HPF Urine Culture Reflexed (NO) 10/25/23 10/25/23 10/25/23 Range/Units 09:02 11:45 16:45 WBC (4.0-10.5) x10^3/uL RBC (4.1-5.4) x10^6/uL Hgb (12.0-16.0) g/dL Hct (35-47) % MCV (78-100) fL MCH (26-32) pg MCHC (32-36) g/dL RDW (11.5-14.0) % Plt Count (150-450) x10^3/uL MPV (7.5-11.0) fL Gran % (36.0-66.0) % Immature Gran % (Auto) (0.00-0.4) % Nucleat RBC Rel Count (0.00-0.1) % Eos # (Auto) (0-0.5) x10^3/uL Immature Gran # (Auto) (0.00-0.03) x10^3u/L Absolute Lymphs (auto) (1.0-4.6) x10^3/uL Absolute Monos (auto) (0.0-1.3) x10^3/uL Absolute Nucleated RBC (0.00-0.01) x10^3u/L Lymphocytes % (24.0-44.0) % Monocytes % (0.0-12.0) % Eosinophils % (0.00-5.0) % Basophils % (0.0-0.4) % Absolute Granulocytes (1.4-6.9) x10^3/uL Basophils # (0-0.4) x10^3/uL PT (9.4-12.5) SECONDS INR (0.8-3.0) Sodium (135-145) mmol/L Potassium (3.5-5.1) mmol/L Chloride (98-107) mmol/L Carbon Dioxide (22-30) mmol/L Anion Gap (5-15) MEQ/L BUN (7-17) mg/dL Creatinine (0.52-1.04) mg/dL Estimated GFR ML/MIN Glucose (74-106) mg/dL POC Glucometer 145 H 120 H (74 to 106) mg/dL Hemoglobin A1c (4.5-6.0) % Calcium (8.4-10.2) mg/dL Total Bilirubin (0.2-1.3) mg/dL AST (14-36) U/L ALT (0-35) U/L Alkaline Phosphatase (38-126) U/L Serum Total Protein (6.3-8.2) g/dL Albumin (3.5-5.0) g/dL Prealbumin (17.6-36.0) mg/dL 25-OH Vitamin D Total (30-100) ng/mL Urine Color Yellow (Yellow) Urine Appearance Clear (Clear) Urine pH 5.0 (4.6-8.0) Ur Specific [place] >=1.030 A (1.005-1.030) Urine Protein Negative (Negative) Urine Glucose (UA) >=1000 A (Negative) mg/dL Urine Ketones 15 A (Negative) Urine Blood Negative (Negative) Urine Nitrite Negative (Negative) Urine Bilirubin Negative (Negative) Urine Urobilinogen 0.2 (0.2) mg/dL Ur Leukocyte Esterase Negative (Negative) U Hyaline Cast (Auto) NONE SEEN (0-2) /LPF Urine Microscopic RBC 0-2 (0-5) /HPF Urine Microscopic WBC 0-2 (0-5) /HPF Ur Epithelial Cells None Seen (None Seen) /HPF Urine Bacteria None Seen (None Seen) /HPF Urine Culture Reflexed NO (NO) 10/25/23 10/26/23 Range/Units 21:49 04:36 WBC 5.3 (4.0-10.5) x10^3/uL RBC 4.61 (4.1-5.4) x10^6/uL Hgb 13.6 (12.0-16.0) g/dL Hct 42.1 (35-47) % MCV 91.3 (78-100) fL MCH 29.5 (26-32) pg MCHC 32.3 (32-36) g/dL RDW 12.5 (11.5-14.0) % Plt Count 128 L (150-450) x10^3/uL MPV 12.4 H (7.5-11.0) fL Gran % 46.3 (36.0-66.0) % Immature Gran % (Auto) 0.4 (0.00-0.4) % Nucleat RBC Rel Count 0.0 (0.00-0.1) % Eos # (Auto) 0.13 (0-0.5) x10^3/uL Immature Gran # (Auto) 0.02 (0.00-0.03) x10^3u/L Absolute Lymphs (auto) 2.11 (1.0-4.6) x10^3/uL Absolute Monos (auto) 0.54 (0.0-1.3) x10^3/uL Absolute Nucleated RBC 0.00 (0.00-0.01) x10^3u/L Lymphocytes % 40.0 (24.0-44.0) % Monocytes % 10.2 (0.0-12.0) % Eosinophils % 2.5 (0.00-5.0) % Basophils % 0.6 (0.0-0.4) % Absolute Granulocytes 2.45 (1.4-6.9) x10^3/uL Basophils # 0.03 (0-0.4) x10^3/uL PT (9.4-12.5) SECONDS INR (0.8-3.0) Sodium (135-145) mmol/L Potassium (3.5-5.1) mmol/L Chloride (98-107) mmol/L Carbon Dioxide (22-30) mmol/L Anion Gap (5-15) MEQ/L BUN (7-17) mg/dL Creatinine (0.52-1.04) mg/dL Estimated GFR ML/MIN Glucose (74-106) mg/dL POC Glucometer 137 H (74 to 106) mg/dL Hemoglobin A1c (4.5-6.0) % Calcium (8.4-10.2) mg/dL Total Bilirubin (0.2-1.3) mg/dL AST (14-36) U/L ALT (0-35) U/L Alkaline Phosphatase (38-126) U/L Serum Total Protein (6.3-8.2) g/dL Albumin (3.5-5.0) g/dL Prealbumin (17.6-36.0) mg/dL 25-OH Vitamin D Total (30-100) ng/mL Urine Color (Yellow) Urine Appearance (Clear) Urine pH (4.6-8.0) Ur Specific [place] (1.005-1.030) Urine Protein (Negative) Urine Glucose (UA) (Negative) mg/dL Urine Ketones (Negative) Urine Blood (Negative) Urine Nitrite (Negative) Urine Bilirubin (Negative) Urine Urobilinogen (0.2) mg/dL Ur Leukocyte Esterase (Negative) U Hyaline Cast (Auto) (0-2) /LPF Urine Microscopic RBC (0-5) /HPF Urine Microscopic WBC (0-5) /HPF Ur Epithelial Cells (None Seen) /HPF Urine Bacteria (None Seen) /HPF Urine Culture Reflexed (NO) Radiology Exams: Radiology Procedures Category Date Time Status CAROTID BILATERAL [US] Urgent Exams 10/25/23 13:08 Completed HEAD W/WO CONTRAST [CT] Routine Exams 10/26/23 07:00 Ordered HEAD WITHOUT CONTRAST [CT] Stat Exams 10/25/23 07:03 Completed Assessment/Plan (1) Expressive aphasia Current Visit: Yes Status: Acute Code(s): R47.01 - APHASIA (2) HLD (hyperlipidemia) Current Visit: Yes Status: Acute Code(s): E78.5 - HYPERLIPIDEMIA, UNSPECIFIED (3) HTN (hypertension) Current Visit: Yes Status: Acute Code(s): I10 - ESSENTIAL (PRIMARY) HYPERTENSION (4) CHF (congestive heart failure) Current Visit: Yes Status: Acute Code(s): I50.9 - HEART FAILURE, UNSPECIFIED (5) CAD (coronary artery disease) Current Visit: Yes Status: Acute Code(s): I25.10 - ATHSCL HEART DISEASE OF [place] CORONARY ARTERY W/O ANG PCTRS (6) Ankle fracture, bimalleolar, closed Current Visit: No Status: Acute Code(s): S82.843A - DISPLACED BIMALLEOLAR FRACTURE OF UNSP LOWER LEG, INIT (7) DM2 (diabetes mellitus, type 2) Current Visit: No Status: Chronic (8) HTN (hypertension) Current Visit: No Status: Chronic Code(s): I10 - ESSENTIAL (PRIMARY) HYPERTENSION
[2023-10-26 05:48] LABS: ALBUMIN 3.9 g/dL (3.5-5.0); ANION GAP 11.9 MEQ/L (5-15); BILIRUBIN,TOTAL 0.8 mg/dL (0.2-1.3); Calcium 9.2 mg/dL (8.4-10.2); Creatinine 1 0.93 mg/dL (0.52-1.04); EST GLOMERULAR FILTRATION RATE 63.3 ML/MIN; Potassium 3.8 mmol/L (3.5-5.1)
[2023-10-26] MEDS ORDERED: Marcaine Mpf 0.5% Vial 30 Ml ONE (07:19)
[2023-10-26] MEDS ORDERED: XYLOCAINE 1% HCL 20 ML MDV ONE (07:19)
[2023-10-26] MEDS: Requip 0.5 MG PO SCH (09:04)
[2023-10-26] MEDS: NORCO 5/325 MG PO PRN (09:05)
[2023-10-26] MEDS: Transderm Scop 1.5MG Patch TOP ONE (09:09)
[2023-10-26] MEDS ORDERED: VITAMIN D2 PO SCH (10:00)
--- NOTE | 2023-10-26 13:13 | PCM.DS ---
Discharge Summary Date of Admission: 10/25/23 09:41 Date of Discharge: 10/26/23 Admitting Physician: JANEY MILLS MD Consults: Consults on Case 10/25/23 09:48 Consult Podiatry ROUTINE 10/25/23 13:19 Tele-Health Consult ROUTINE Primary Care Provider: MICAH DAMON DO Allergies Allergies iopamidol [From Isovue-M] Allergy (Severe, Verified 10/24/23 10:32) CONVULSIONS FROM INTRATHECAL ADMINISTRATION morphine Adverse Reaction (Severe, Verified 10/24/23 10:32) BEHAVIOR Hospital Summary - Hospital Course Hospital Course: is a 78 year old female with a pmhx of DM, HLD, CHF, CAD, defib/pacemaker, migraines, TIA, and [place] who presented to [facility] ED 10/25/23 with complaints of expressive aphasia and associated BIGGS that started early this morning. Patient has multiple previous admissions for this. Patient was evaluated in ED 10/24/23 after a ground level fall at home resulting in a right ankle fracture which was scheduled for surgical repair 10/26/23. Patient did not have LOC or did she hit her head when she fell. In ED, vitals unremarkable. CT head showing nonacute senile brain. 206. Neurology consulted with recs for MRI which we are unable to obtain due to her internal pacemaker/difibulator, neurology recommending transfer to facility to with magnet/cardiology available to obtain imaging for stroke r/o as well as starting aspirin. Patient will also need podiatry consult for right ankle fracture. Patient has been accepted at [facility] by Dr. Barrow. Discharge Note New Diagnosis: Expressive aphasia/right ankle fracture New Medications:aspirin Latest Assessment & Plan (1) Expressive aphasia Current Visit: Yes Status: Acute Assessment & Plan: -neurology consulted with recs for MRI which we are unable to obtain due to pacemaker/agustin- unable to turn off with magnet at this facility, will order CTA head -CT head negative - could be complicated migraine as pt does have history -Patient already on plavix -ASA given in ED at 324mg, recs to continue ASA 81mg -Carotid US Code(s): R47.01 - APHASIA (2) HLD (hyperlipidemia) Current Visit: Yes Status: Acute Assessment & Plan: -Continue home statin Code(s): E78.5 - HYPERLIPIDEMIA, UNSPECIFIED (3) HTN (hypertension) Current Visit: Yes Status: Acute Assessment & Plan: -stable continue home meds Code(s): I10 - ESSENTIAL (PRIMARY) HYPERTENSION (4) CHF (congestive heart failure) Current Visit: Yes Status: Acute Assessment & Plan: -Does not appear to be in exacerbation, no recent echo on file, will continue home medications Code(s): I50.9 - HEART FAILURE, UNSPECIFIED (5) CAD (coronary artery disease) Current Visit: Yes Status: Acute Assessment & Plan: -Continue home meds Entresto/jardiance Code(s): I25.10 - ATHSCL HEART DISEASE OF [place] CORONARY ARTERY W/O ANG PCTRS (6) Ankle fracture, bimalleolar, closed Current Visit: No Status: Acute Assessment & Plan: -Podiatry note reviewed, agree with plan for open reduction internal fixatin for bimalleolar fracture to right ankle as seen on xr -NPO after midnight -May have to use local for anesthesia, will discuss with podiatry Code(s): S82.843A - DISPLACED BIMALLEOLAR FRACTURE OF UNSP LOWER LEG, INIT (7) DM2 (diabetes mellitus, type 2) Current Visit: No Status: Chronic Assessment & Plan: -hold metformin -ADA diet -SSI/lispro/ when diet resumed -glargine (8) HTN (hypertension) Current Visit: No Status: Chronic Assessment & Plan: -stable continue home medications I spent 35 minutes [id number] with the patient on the day of discharge performing discharge exam, discussing hospital stay and discharge instructions with patient and caregivers, preparation of discharge records, prescriptions & referral forms and addressing any questions/concerns the patient had as documented above. - Vitals & Intake/Output Vital Signs: Vital Signs Temperature 98.0 F 10/26/23 11:41 Pulse Rate 77 10/26/23 11:41 Respiratory Rate 16 10/26/23 11:41 Blood Pressure 119/57 10/26/23 11:41 O2 Sat by Pulse Oximetry 93 L 10/26/23 11:41 Intake & Output: Intake & Output 10/24/23 10/25/23 10/26/23 10/27/23 11:59 11:59 11:59 11:59 Intake Total 1068 Balance 1068 Weight 74.1 kg - Lab Result Diagrams: 10/26/23 04:36 10/26/23 04:36 Lab Results-Last 24 Hrs: Lab Results-Last 24 Hours 10/25/23 10/25/23 10/25/23 Range/Units 05:00 07:22 16:45 WBC (4.0-10.5) x10^3/uL RBC (4.1-5.4) x10^6/uL Hgb (12.0-16.0) g/dL Hct (35-47) % MCV (78-100) fL MCH (26-32) pg MCHC (32-36) g/dL RDW (11.5-14.0) % Plt Count (150-450) x10^3/uL MPV (7.5-11.0) fL Gran % (36.0-66.0) % Immature Gran % (Auto) (0.00-0.4) % Nucleat RBC Rel Count (0.00-0.1) % Eos # (Auto) (0-0.5) x10^3/uL Immature Gran # (Auto) (0.00-0.03) x10^3u/L Absolute Lymphs (auto) (1.0-4.6) x10^3/uL Absolute Monos (auto) (0.0-1.3) x10^3/uL Absolute Nucleated RBC (0.00-0.01) x10^3u/L Lymphocytes % (24.0-44.0) % Monocytes % (0.0-12.0) % Eosinophils % (0.00-5.0) % Basophils % (0.0-0.4) % Absolute Granulocytes (1.4-6.9) x10^3/uL Basophils # (0-0.4) x10^3/uL Sodium (135-145) mmol/L Potassium (3.5-5.1) mmol/L Chloride (98-107) mmol/L Carbon Dioxide (22-30) mmol/L Anion Gap (5-15) MEQ/L BUN (7-17) mg/dL Creatinine (0.52-1.04) mg/dL Estimated GFR ML/MIN Glucose (74-106) mg/dL POC Glucometer 120 H (74 to 106) mg/dL Hemoglobin A1c 7.62 H (4.5-6.0) % Calcium (8.4-10.2) mg/dL Total Bilirubin (0.2-1.3) mg/dL AST (14-36) U/L ALT (0-35) U/L Alkaline Phosphatase (38-126) U/L Serum Total Protein (6.3-8.2) g/dL Albumin (3.5-5.0) g/dL 25-OH Vitamin D Total 24.4 L (30-100) ng/mL 10/25/23 10/26/23 10/26/23 Range/Units 21:49 04:36 04:36 WBC 5.3 (4.0-10.5) x10^3/uL RBC 4.61 (4.1-5.4) x10^6/uL Hgb 13.6 (12.0-16.0) g/dL Hct 42.1 (35-47) % MCV 91.3 (78-100) fL MCH 29.5 (26-32) pg MCHC 32.3 (32-36) g/dL RDW 12.5 (11.5-14.0) % Plt Count 128 L (150-450) x10^3/uL MPV 12.4 H (7.5-11.0) fL Gran % 46.3 (36.0-66.0) % Immature Gran % (Auto) 0.4 (0.00-0.4) % Nucleat RBC Rel Count 0.0 (0.00-0.1) % Eos # (Auto) 0.13 (0-0.5) x10^3/uL Immature Gran # (Auto) 0.02 (0.00-0.03) x10^3u/L Absolute Lymphs (auto) 2.11 (1.0-4.6) x10^3/uL Absolute Monos (auto) 0.54 (0.0-1.3) x10^3/uL Absolute Nucleated RBC 0.00 (0.00-0.01) x10^3u/L Lymphocytes % 40.0 (24.0-44.0) % Monocytes % 10.2 (0.0-12.0) % Eosinophils % 2.5 (0.00-5.0) % Basophils % 0.6 (0.0-0.4) % Absolute Granulocytes 2.45 (1.4-6.9) x10^3/uL Basophils # 0.03 (0-0.4) x10^3/uL Sodium 139 (135-145) mmol/L Potassium 3.8 (3.5-5.1) mmol/L Chloride 107 (98-107) mmol/L Carbon Dioxide 24 (22-30) mmol/L Anion Gap 11.9 (5-15) MEQ/L BUN 18 H (7-17) mg/dL Creatinine 0.93 (0.52-1.04) mg/dL Estimated GFR 63.3 ML/MIN Glucose 122 H (74-106) mg/dL POC Glucometer 137 H (74 to 106) mg/dL Hemoglobin A1c (4.5-6.0) % Calcium 9.2 (8.4-10.2) mg/dL Total Bilirubin 0.80 (0.2-1.3) mg/dL AST 29 (14-36) U/L ALT 21 (0-35) U/L Alkaline Phosphatase 49 (38-126) U/L Serum Total Protein 7.0 (6.3-8.2) g/dL Albumin 3.9 (3.5-5.0) g/dL 25-OH Vitamin D Total (30-100) ng/mL 10/26/23 10/26/23 Range/Units 07:32 11:30 WBC (4.0-10.5) x10^3/uL RBC (4.1-5.4) x10^6/uL Hgb (12.0-16.0) g/dL Hct (35-47) % MCV (78-100) fL MCH (26-32) pg MCHC (32-36) g/dL RDW (11.5-14.0) % Plt Count (150-450) x10^3/uL MPV (7.5-11.0) fL Gran % (36.0-66.0) % Immature Gran % (Auto) (0.00-0.4) % Nucleat RBC Rel Count (0.00-0.1) % Eos # (Auto) (0-0.5) x10^3/uL Immature Gran # (Auto) (0.00-0.03) x10^3u/L Absolute Lymphs (auto) (1.0-4.6) x10^3/uL Absolute Monos (auto) (0.0-1.3) x10^3/uL Absolute Nucleated RBC (0.00-0.01) x10^3u/L Lymphocytes % (24.0-44.0) % Monocytes % (0.0-12.0) % Eosinophils % (0.00-5.0) % Basophils % (0.0-0.4) % Absolute Granulocytes (1.4-6.9) x10^3/uL Basophils # (0-0.4) x10^3/uL Sodium (135-145) mmol/L Potassium (3.5-5.1) mmol/L Chloride (98-107) mmol/L Carbon Dioxide (22-30) mmol/L Anion Gap (5-15) MEQ/L BUN (7-17) mg/dL Creatinine (0.52-1.04) mg/dL Estimated GFR ML/MIN Glucose (74-106) mg/dL POC Glucometer 132 H 126 H (74 to 106) mg/dL Hemoglobin A1c (4.5-6.0) % Calcium (8.4-10.2) mg/dL Total Bilirubin (0.2-1.3) mg/dL AST (14-36) U/L ALT (0-35) U/L Alkaline Phosphatase (38-126) U/L Serum Total Protein (6.3-8.2) g/dL Albumin (3.5-5.0) g/dL 25-OH Vitamin D Total (30-100) ng/mL Micro Results-Entire Visit: Accuchecks Date 10/26/23 Date 10/25/23 Date 10/25/23 Time 07:38 Time 16:58 - Radiology Exams Ordered Rad Exams-Entire Visit: Radiology Procedures Category Date Time Status CAROTID BILATERAL [US] Urgent Exams 10/25/23 13:08 Completed HEAD WITHOUT CONTRAST [CT] Stat Exams 10/25/23 07:03 Completed HEAD WITHOUT CONTRAST [CT] Stat Exams 10/26/23 07:30 Ordered - Procedures and Test Procedures and Tests throughout Hospitalization: Therapy Orders & Screens 10/25/23 09:48 EKG REPEAT IN AM Comment: 10/25/23 10:42 OT Screen per Nursing Assess ONCE Comment: Protocol Order Physician Instructions: Greater than 3 points order OT Admission Screening Reason For Exam: Triggered on Admission Diagnosis: Aphasia Open Wound/Cellutlitis/Pressure Ulcers: No Acute Fx/ORIF/Change in wt bearing status: Yes Severe MUSCULOSKELETAL pain: No ADL Dysfunction: No Acute CVA w/Hemiparesis/Hemiplegia: No Decreased Functional Mobility/Strength: Yes Sprain/Strain: No Acute Post-op Mobility Dysfunction: No Total Points: 6 PT Screen per Nursing Assess ONCE Comment: Protocol Order Physician Instructions: Greater than 3 points order PT Admission Screenin Reason For Exam: Triggered on Admission Diagnosis: Aphasia Open Wound/Cellutlitis/Pressure Ulcers: No Acute Fx/ORIF/Change in wt bearing status: Yes Severe MUSCULOSKELETAL pain: No ADL Dysfunction: No Acute CVA w/Hemiparesis/Hemiplegia: No Decreased Functional Mobility/Strength: Yes Sprain/Strain: No Acute Post-op Mobility Dysfunction: No Total Points: 6 ST Screen per Nursing Assess ONCE Comment: Protocol Order Physician Instructions: Greater than [address] Admission Screening Reason For Exam: Triggered on Admission Diagnosis: Aphasia CVA/Dyshpagia/Aphasia: Yes Cognitive Deficits: No Dehydration/Nutrition Deficit: No Reflux: No Oral-Motor Difficulties: No Pneumonia: No Half-Way Resident: No Total Points: 5 Discharge Exam General Appearance: no apparent distress Neurologic Exam: alert, oriented x 3, cooperative Eye Exam: PERRL Ears, Nose, Throat Exam: normal ENT inspection Neck Exam: normal inspection Respiratory Exam: normal breath sounds, lungs clear Cardiovascular Exam: regular rate/rhythm, normal heart sounds Gastrointestinal/Abdomen Exam: soft, normal bowel sounds Pelvic Exam: deferred Rectal Exam: deferred Back Exam: normal inspection Extremity Exam: limited range of motion (RLE) Skin Exam: normal color Final Diagnosis/Problem List - Final Discharge Diagnosis/Problem (1) Expressive aphasia Current Visit: Yes Status: Acute Code(s): R47.01 - APHASIA (2) HLD (hyperlipidemia) Current Visit: Yes Status: Acute Code(s): E78.5 - HYPERLIPIDEMIA, UNSPECIFIED (3) HTN (hypertension) Current Visit: Yes Status: Acute Code(s): I10 - ESSENTIAL (PRIMARY) HYPERTENSION (4) CHF (congestive heart failure) Current Visit: Yes Status: Acute Code(s): I50.9 - HEART FAILURE, UNSPECIFIED (5) CAD (coronary artery disease) Current Visit: Yes Status: Acute Code(s): I25.10 - ATHSCL HEART DISEASE OF [place] CORONARY ARTERY W/O ANG PCTRS (6) Ankle fracture, bimalleolar, closed Current Visit: No Status: Acute Code(s): S82.843A - DISPLACED BIMALLEOLAR FRACTURE OF UNSP LOWER LEG, INIT (7) DM2 (diabetes mellitus, type 2) Current Visit: No Status: Chronic (8) HTN (hypertension) Current Visit: No Status: Chronic Code(s): I10 - ESSENTIAL (PRIMARY) HYPERTENSION - Discharge Disposition: DC TO [facility] Condition: Stable Prescriptions: New Ergocalciferol (Vitamin D2) [Vitamin D2] 50,000 unit PO WEEKLY cap Continue Metformin HCl 1000 mg [Glucophage 1000 MG] 1,000 mg PO BID #0 Ropinirole HCl 0.25 mg PO DAILY Pravastatin Sodium 40 mg PO HS Furosemide 40 mg [Lasix 40 MG] 60 mg PO DAILY Sacubitril/Valsartan [Entresto 24 mg-26 mg Tablet] 1 each PO DAILY Ropinirole HCl 0.5 mg PO HS Hydrocodone/Acetaminophen [Hydrocodone-Acetamin 5-325 mg] 1 tab PO BID Insulin Lispro [Humalog Kwikpen U-100] 10 units SQ TIDWMEALS Gabapentin 600 mg PO TID Famotidine 20 mg PO BID Duloxetine HCl [Cymbalta] 60 mg PO DAILY Potassium Chloride 10 meq PO DAILY Metoprolol Succinate 25 mg Xl* [Toprol-Xl 25MG Tablets] 25 mg PO DAILY Insulin Glargine,Hum.rec.anlog [Lantus] 10 units SQ DAILY Empagliflozin [Jardiance] 25 mg PO DAILY Trazodone HCl 50 mg [Desyrel 50 mg] 50 mg PO HS Follow up with: MICAH DAMON DO [Primary Care Provider] -
[2023-10-26 15:33] VITALS: BP 123/64; PULSE 73; TEMP 98.1; O2SAT 91
[2023-10-26] MEDS: Zofran 4 MG/2 ML VIAL IV PRN (17:22)
[2023-10-27] MEDS ORDERED: ECOTRIN 81 MG PO SCH (10:00)
== END 2023-10-26 17:25 | disposition home or self-care (01) ==
LOC: ED 06:54 → MED SURG 09:41
PROVIDERS: ADMIT Internal Medicine; ATTEND Internal Medicine
DX: R47.01 Aphasia (principal); E11.9 Type 2 diabetes mellitus without complications; E78.5 Hyperlipidemia, unspecified; I11.0 Hypertensive heart disease with heart failure; I50.9 Heart failure, unspecified; I25.10 Atherosclerotic heart disease of native coronary artery without angina pectoris; S82.841A Displaced bimalleolar fracture of right lower leg, initial encounter for closed fracture; Z79.899 Other long term (current) drug therapy
CPT/HCPCS: 36000; 36415; 70450; 80053; 81001; 82306; 82947; 83036; 84134; 85025; 85610; 93005; 93041; 93268; 93880; 94760; 96374; 99222; 99285; 99291; G0378; J2405; A9270-GY

== ENCOUNTER 2023-11-02 07:06 | Day surgery (SDC) | payer MEDICARE ==
[2023-11-02] MEDS ORDERED: Lactated Ringers 1,000 ML IV ONE (07:29)
[2023-11-02] MEDS: CEFAZOLIN 2 GM-D5W BAG** 2 GM/50 ML ML IV SCH (07:39)
[2023-11-02] MEDS: Lactated Ringers 1,000 ML IV SCH (07:41)
[2023-11-02 07:44] VITALS: TEMP 96.4
[2023-11-02 07:49] LABS: Absolute Neutrophil Ct (ANC) 2.77 x10^3/uL (1.4-6.9); BASOPHIL % 0.7 % (0.0-0.4); Basophil (Absolute #) 0.04 x10^3/uL (0-0.4); Eosinophil % 2.2 % (0.00-5.0); Eosinophil (Absolute #) 0.13 x10^3/uL (0-0.5); Hematocrit 42.2 % (35-47); Hemoglobin 13.9 g/dL (12.0-16.0); IMMATURE GRAN # 0.02 x10^3u/L (0.00-0.03); IMMATURE GRAN % 0.3 % (0.00-0.4); Lymphocyte (Absolute #) 2.51 x10^3/uL (1.0-4.6); Lymphocytes % 42.3 % (24.0-44.0); Mean Cell Volume 90.4 fL (78-100); Mean Corpuscular Hemoglobin 29.8 pg (26-32); Mean Corpuscular Hgb Concent. 32.9 g/dL (32-36); Mean Platelet Volume 11.8 fL (7.5-11.0); Monocyte (Absolute #) 0.46 x10^3/uL (0.0-1.3); Monocytes % 7.8 % (0.0-12.0); Neutrophil % 46.7 % (36.0-66.0); Platelet Count 175 x10^3/uL (150-450); Red Blood Count 4.67 x10^6/uL (4.1-5.4); Red Cell Distribution Width 12.4 % (11.5-14.0); White Blood Count 5.9 x10^3/uL (4.0-10.5)
[2023-11-02 08:20] LABS: ALBUMIN 3.6 g/dL (3.5-5.0); ANION GAP 9.8 MEQ/L (5-15); BILIRUBIN,TOTAL 0.7 mg/dL (0.2-1.3); Calcium 9.8 mg/dL (8.4-10.2); Creatinine 1 1.02 mg/dL (0.52-1.04); EST GLOMERULAR FILTRATION RATE 56.7 ML/MIN; Potassium 4.2 mmol/L (3.5-5.1); Total Protein 6.6 g/dL (6.3-8.2)
[2023-11-02] MEDS ORDERED: Marcaine 0.5%/Epinephrine 10 ML ONE (14:46)
[2023-11-02] MEDS ORDERED: Naropin 0.5% 30 ML VIAL ONE (14:46)
[2023-11-02] MEDS ORDERED: Xylocaine-Mpf 2% 5 Ml Vial ONE (14:46)
[2023-11-02] MEDS ORDERED: Versed 2 MG/2 ML Injection ONE (15:01)
[2023-11-02] MEDS ORDERED: Xylocaine 1% Vial 30 ML PF IJ ONE (16:17)
[2023-11-02] MEDS ORDERED: Marcaine Mpf 0.5% Vial 30 Ml ONE (16:17)
--- NOTE | 2023-11-02 16:59 | XRAY ---
Indication: Right ankle ORIF surgery. Intraoperative fluoroscopy provided for 6 minute 18 seconds. 25 digital spot images submitted for interpretation ultimately demonstrates orthopedic hardware fixating bimalleolar fractures in good apposition/alignment. Correlate with intraoperative findings/report.
[2023-11-02 17:00] VITALS: RESP 18; O2SAT 97
[2023-11-02 17:14] VITALS: BP 136/67; PULSE 65
--- NOTE | 2023-11-03 11:49 | OP ---
SURGERY DATE: 11/02/2023 SURGERY TIME: 1500 PREOPERATIVE DIAGNOSIS: 1. RIGHT BIMALLEOLAR FRACTURE WITH SYNDESMOTIC INSTABILITY. 2. PAIN RIGHT ANKLE. 3. ACUTE SYNDESMOTIC DISRUPTION. POSTOPERATIVE DIAGNOSIS: 1. RIGHT BIMALLEOLAR FRACTURE WITH SYNDESMOTIC INSTABILITY. 2. PAIN RIGHT ANKLE. 3. ACUTE SYNDESMOTIC DISRUPTION. PROCEDURE: 1. Open reduction internal fixation of right bimalleolar fracture with syndesmotic reduction. SURGEON: German Neves D.P.M. MANAGER LINUX: None. ANESTHESIA: Femoral block. See anesthesia report for details. HEMOSTASIS: A pressure dressing. ESTIMATED BLOOD LOSS: Approximately 10 cc. MATERIALS: A [facility] fibular nail 130 mm with 2.7 X 12, 2.7 X 14, 2.7 X 16 screws as well as a 3.5 X 56 and a 3.5 X 44 syndesmotic screw, one 4.0 X 50 partially threaded screw for the medial malleolus. 3-0 Nylon. INJECTABLES: See anesthesia report for details. An additional 10 cc of a 1:1 mixture of 1% Lidocaine plain and 0.5% Bupivicaine plain was injected to the saphenous and posterior tibial nerve distribution intraoperatively. INDICATIONS FOR PROCEDURE: Shana is a very pleasant 78 year-old female who presented for a bimalleolar fracture. During this period of time, the patient was having a work-up from a brain and cardiac standpoint due to a new issue she was experiencing similar to that of aphasia/word-searching. She was cleared from a CT scan of her brain from a stroke explaining her symptoms. She was transferred to [place] approximately 1 week ago and they assessed it to be part of a medication issue. Nobody did a thorough work-up of her cardiac history. Therefore, there was still some concern in regards to proceeding with surgical intervention. Given that, the patient did have an unstable fracture being that it is a bimalleolar fracture supination external rotation with an obvious transverse medial malleolar fracture and pain over the medial deltoids. I am making this a surgical issue for anybody who can tolerate it and is ambulatory. Decision was made to proceed with surgical intervention with a block and light sedation. Patient's family and patient are amenable at this time to proceeding in hopes to get her up and on her feet quicker with this modality. The patient understands this and wishes to proceed. Plenty of time was allowed for the patient to ask questions as well as her family which were answered to her apparent satisfaction. All risks, complications, and benefits were discussed with the patient including, but not limited to, infection; hematoma/seroma; possibility of delayed wound healing; non-wound healing; possibility of delayed bone healing, non-bone healing; and possible need for further non-weight bearing status. There is a risk of possible deep venous thrombosis for which we do prophylaxis against. Patient also does have a back surgery tomorrow and there are risks with going forward with that which were discussed and are acceptable to the patient. At this time, the patient understands these risks and wishes to proceed and it is at that time, we decided to proceed with intervention. DESCRIPTION OF PROCEDURE: The patient was brought into the PACU prior to the procedure and procedure and provided a popliteal and saphenous block. Following this, patient was brought in to the OR. Placed on the OR table in the supine position. At this time, the right lower extremity was prepped and draped in the typical sterile fashion and lowered onto the surgical field. Attention was directed under fluoroscopic guidance to place the pin for the fibular nail which was placed at the central aspect on the lateral and slightly midline of the flare of the fibula. This was introduced percutaneously. Once introduced, following picking machine operator's specifications, the drill was used to puncture the distal tip of the fibula. Following this, the reamers were then utilized to clear space for the fibular nail. The 130 mm 4.5 fibular nail was then introduced while holding the fracture in alignment utilizing the point of reduction tenaculum. This was then secured utilizing a 12, 14, and 16 X 2.7 mm screw locking up the distal aspect of the nail. Attention was directed to the medial malleolus where a stab incision made and percutaneous fixation was accomplished utilizing an intraarticular placed freer pushing the fragment medially and pinning this with 2 K-wires. Patient did have some pain here, so we decided to stop for a moment providing 10 cc of a 1:1 mixture of 1% Lidocaine plain and 0.5% Bupivicaine plain injected in a saphenous and a posterior tibial nerve distribution. Once pain subsided, we proceeded with a 4.0 X 50 partially threaded screw. Decision was made to only place 1 screw at this time due to continued discomfort in this area. From that standpoint, decision was made to proceed with the stress testing of the syndesmosis which did seemingly gap on mortise view with an external rotation test. Decision was made to go ahead and provide compression through this with a 3.5 X 56 and a 3.5 X 44 mm screw gaining excellent compression through this site. Following this, copious amounts of sterile saline were utilized to flush the surgical sites. 3-0 Nylon was utilized in a simple interrupted fashion. Following this, a dressing consisting of Betadine, Adaptic, 4 X 4, Kerlix, ABD, and a well-padded posterior splint was applied to the patient's right lower extremity with the foot orthogonal relative to longitudinal axis of the leg. The patient was then returned to the pre-op area with vital signs stable and vascular status intact. The patient handled the anesthesia as well as the procedure without significant complication. Postoperative orders as indicated in the patient's discharge chart.
--- NOTE | 2023-11-03 12:38 | XRAY ---
Six minutes and 18 seconds of fluoroscopy was used in surgery for a right ankle ORIF surgery.
== END 2023-11-02 17:25 | disposition home or self-care (01) ==
LOC: SDC 07:06
PROVIDERS: ATTEND Podiatrist Foot & Ankle Surgery
DX: S82.841A Displaced bimalleolar fracture of right lower leg, initial encounter for closed fracture (principal); M25.571 Pain in right ankle and joints of right foot; S93.431A Sprain of tibiofibular ligament of right ankle, initial encounter
CPT/HCPCS: 01480; 27814; 27829; 36415; 64447; 64450; 73610; 76000; 76942; 80053; 85025; 99100; C1713; J0690; J2001; J2250; J2795

== ENCOUNTER 2023-11-07 03:58 | Emergency (ER) | payer MEDICARE ==
[2023-11-07 05:15] LABS: Absolute Neutrophil Ct (ANC) 4.54 x10^3/uL (1.4-6.9); BASOPHIL % 0.6 % (0.0-0.4); Basophil (Absolute #) 0.04 x10^3/uL (0-0.4); Eosinophil % 2.5 % (0.00-5.0); Eosinophil (Absolute #) 0.17 x10^3/uL (0-0.5); Hemoglobin 13.5 g/dL (12.0-16.0); IMMATURE GRAN # 0.02 x10^3u/L (0.00-0.03); IMMATURE GRAN % 0.3 % (0.00-0.4); Lymphocyte (Absolute #) 1.48 x10^3/uL (1.0-4.6); Lymphocytes % 22.2 % (24.0-44.0); Mean Cell Volume 91.7 fL (78-100); Mean Corpuscular Hemoglobin 29.5 pg (26-32); Mean Corpuscular Hgb Concent. 32.1 g/dL (32-36); Mean Platelet Volume 11.6 fL (7.5-11.0); Monocyte (Absolute #) 0.42 x10^3/uL (0.0-1.3); Monocytes % 6.3 % (0.0-12.0); Neutrophil % 68.1 % (36.0-66.0); Platelet Count 181 x10^3/uL (150-450); Red Blood Count 4.58 x10^6/uL (4.1-5.4); Red Cell Distribution Width 12.2 % (11.5-14.0); White Blood Count 6.7 x10^3/uL (4.0-10.5)
[2023-11-07] MEDS ORDERED: Sodium Chloride 0.9% 1000 ML 1,000 ML ONE (05:20)
[2023-11-07] MEDS ORDERED: Zofran 4 MG/2 ML VIAL ONE (05:20)
[2023-11-07 05:21] VITALS: TEMP 97.7
[2023-11-07] MEDS: Sodium Chloride 0.9% 1000 ML 1,000 ML IV SCH (05:24)
[2023-11-07] MEDS: Zofran 4 MG/2 ML VIAL IV ONE (05:24)
[2023-11-07 05:30] LABS: ALBUMIN 3.4 g/dL (3.5-5.0); ANION GAP 11.6 MEQ/L (5-15); BILIRUBIN,TOTAL 0.6 mg/dL (0.2-1.3); Calcium 9.5 mg/dL (8.4-10.2); Creatinine 1 0.89 mg/dL (0.52-1.04); EST GLOMERULAR FILTRATION RATE 66.7 ML/MIN; Potassium 3.6 mmol/L (3.5-5.1); Total Protein 6.3 g/dL (6.3-8.2)
[2023-11-07 05:52] LABS: INFLUENZA A NEGATIVE (NEGATIVE); INFLUENZA B NEGATIVE (NEGATIVE); RESPIRATORY SYNCTIAL VIRUS NEGATIVE (NEGATIVE); SARS-CoV-2 Xpert Express NEGATIVE (NEGATIVE)
[2023-11-07 06:09] LABS: Appearance Clear (Clear); Bacteria None Seen /HPF (None Seen); Bilirubin Negative (Negative); Blood Negative (Negative); Epithelial Cells None Seen /HPF (None Seen); Glucose, Urine >=1000 mg/dL (Negative); Hyaline Casts NONE SEEN /LPF (0-2); Ketones Trace (Negative); Leukocyte Esterase Small (Negative); Nitrite Negative (Negative); Ph 5.5 (4.6-8.0); Protein,Urine Dip Negative (Negative); RBC 0-2 /HPF (0-5); Specific Gravity >=1.030 (1.005-1.030); WBC 21-50 /HPF (0-5)
[2023-11-07 06:15] LABS: ADD URINE CULTURE? YES (NO)
[2023-11-07] MEDS ORDERED: KEFLEX 500 MG ONE (06:37)
[2023-11-07] MEDS: KEFLEX 500 MG PO ONE (06:38)
--- NOTE | 2023-11-07 06:42 | ERPHSYRPT ---
- History of Present Illness Time Seen by Provider: 11/07/23 04:25 Source: patient Exam Limitations: no limitations Patient Subjective Stated Complaint: pt and daughter report that at approx 0200 pt thought that her had called her and reports around that time she started feeling nauseated. at 0300 she called to her daughter in the next room and reported this as well as being weak generally to entire body which she describes as having less strength than normal. Triage Nursing Assessment: pt brought to room 6 via wheelchair and into bed with max staff assist of 2 secondary to NWB status to right leg. pt had right ankle fracture repair on 11/02/23 and back surgery on 11/03/23. pt is alert and oriented times three, able to move all extremities (decreased to RLE due to post op dsg/ weight bearing status), able to speak in 4-5 word phrases, and with resp even and unlabored. pt denies eubanks, cp, sob, difficulty breathing, nausea, diarrhea, lightheadedness, dizziness, change in appetite, difficulty with urinary or bowel elimination. heart sounds present and regular upon auscultation. bilat radial and left pedal pulses palpable. no JVD or edema noted. bilat anterior lung sounds clear throughout, bilat hat marker equal and strong. bilat pupils 5mm, round, equal, and reactive to light. skin pink, warm, dry, and intact. NIHSS score not ed below. per daughter current speech pattern and mentation (other than thinking she spoke with her ) is normal for patient as her baseline. OCTAVIO right lower leg/ foot/ pulse/ etc due to post dsg. left foot with strong dorsi/ plantar flexion. Physician History: She is a 78-year-old white female patient was brought into the emergency department by her daughter. This patient is a patient of Dr. Damon. Patient was awake and using Facebook at 1 AM. Patient went to bed and within an hour to she woke up when "my called me on the phone". Patient's has sometime ago. She did not feel well at that time then vomited once. Patient has a history of migraine headaches, CHF, cardiomyopathy, hyperlipidemia, diabetes and hypertension. She has a pacemaker/defibrillator in place. She is also on Plavix. Patient currently does not have a headache. She does not have chest pain. She denies shortness of breath. She has no abdominal pain. She also stated she has mild generalized weakness. Timing/Duration: today Severity: mild Associated Symptoms: nausea, vomiting, weakness (Months) Allergies/Adverse Reactions: Iodinated Contrast Media Allergy (Severe, Verified 11/07/23 05:35) convulsions iopamidol [From Isovue-M] Allergy (Severe, Verified 11/07/23 04:11) CONVULSIONS FROM INTRATHECAL ADMINISTRATION morphine Adverse Reaction (Severe, Verified 11/07/23 04:11) BEHAVIOR Home Medications: Furosemide 40 mg [Lasix 40 MG] 60 mg PO DAILY 07/14/16 [History] Sacubitril/Valsartan [Entresto 24 mg-26 mg Tablet] 1 each PO DAILY 07/14/16 [History] Ropinirole HCl 0.5 mg PO BID 02/14/21 [History] Duloxetine HCl [Cymbalta] 60 mg PO DAILY 10/25/23 [History] Empagliflozin [Jardiance] 25 mg PO DAILY 10/25/23 [History] Famotidine 20 mg PO BID 10/25/23 [History] Gabapentin 100 mg PO HS 10/25/23 [History] Hydrocodone/Acetaminophen [Hydrocodone-Acetamin 5-325 mg] 1 tab PO BID 10/25/23 [History] Insulin Glargine,Hum.rec.anlog [Lantus] 15 units SQ HS 10/25/23 [History] Insulin Lispro [Humalog Kwikpen U-100] 5 units SQ TIDWMEALS 10/25/23 [History] Metoprolol Succinate 25 mg Xl* [Toprol-Xl 25MG Tablets] 25 mg PO DAILY 10/25/23 [History] Trazodone HCl 50 mg [Desyrel 50 mg] 50 mg PO HS 10/25/23 [History] Apixaban [Eliquis] 5 mg PO BID 11/02/23 [History] Simvastatin 20Mg [Zocor 20Mg] 20 mg PO DAILY 11/02/23 [History] Hx Tetanus, Diphtheria Vaccination/Date Given: (unknown) Hx Influenza Vaccination/Date Given: Yes Hx Pneumococcal Vaccination/Date Given: Yes Immunizations Up to Date: No Travel Risk - International Travel Have you traveled outside of the country in past 3 weeks: No - Emerging Infectious Disease Are you exhibiting symptoms associated with any current EIDs: No Symptoms: Headaches/Body Aches/ - Review of Systems Constitutional: Weakness (Mild, generalized) Eyes: No Symptoms Ears, Nose, & Throat: No Symptoms Respiratory: No Symptoms Cardiac: No Symptoms Abdominal/Gastrointestinal: Nausea, Vomiting (Patient vomited once), No Abdominal Pain Genitourinary Symptoms: No Symptoms Musculoskeletal: No Symptoms Skin: No Symptoms Neurological: No Symptoms Psychological: No Symptoms Endocrine: No Symptoms Hematologic/Lymphatic: No Symptoms Immunological/Allergic: No Symptoms All Other Systems: Reviewed and Negative - Past Medical History Pertinent Past Medical History: Yes Neurological History: Migraines, TIA ENT History: Cataracts Cardiac History: Arrhythmia, Congestive Heart Failure, Hypertension, Myocardial Infarction (PA), Other Respiratory History: CHF Endocrine Medical History: Diabetes Type II Musculoskeletal History: Other GI Medical History: Other History: No Pertinent History Psycho-Social History: Anxiety, Depression Female Reproductive Disorders: No Pertinent History Other Medical History: HYSTERECTOMY, CARDIOMYOPATHY. Afib - Past Surgical History Past Surgical History: Yes Neuro Surgical History: No Pertinent History Cardiac: Cardiac Catheterization, Internal Defibrillator, Pacemaker Respiratory: No Pertinent History Gastrointestinal: No Pertinent History Genitourinary: No Pertinent History Musculoskeletal: Orthopedic Surgery, Other Female Surgical History: Hysterectomy Other Surgical History: right foot surgery. back surgery - Social History Smoking Status: Former smoker Exposure to second hand smoke: Yes Drug Use: none Patient Lives Alone: No - Nursing Vital Signs Nursing Vital Signs: Initial Vital Signs Temperature 97.7 F 11/07/23 04:19 Pulse Rate 100 H 11/07/23 04:19 Respiratory Rate 16 11/07/23 04:19 Blood Pressure 151/77 11/07/23 04:19 O2 Sat by Pulse Oximetry 96 11/07/23 04:19 Pain Scale Pain Intensity 0 - Physical Exam General Appearance: no apparent distress, alert, anxiety Eye Exam: PERRL/EOMI Ears, Nose, Throat Exam: normal ENT inspection, moist mucous membranes Neck Exam: normal inspection, non-tender, supple, full range of motion Respiratory Exam: normal breath sounds, lungs clear, No chest tenderness, No respiratory distress Cardiovascular Exam: regular rate/rhythm, normal heart sounds, normal peripheral pulses Gastrointestinal/Abdomen Exam: soft, normal bowel sounds, No tenderness Pelvic Exam: not done Rectal Exam: not done Back Exam: normal inspection, normal range of motion, CVA tenderness Extremity Exam: normal inspection, normal range of motion, pelvis stable Neurologic Exam: alert, oriented x 3, cooperative, 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 She has findings of biventricular paced rhythm. No change from twelve-lead EKG dated 10/25/2023) Ordered Tests: Active Orders 24 hr Category Date Time Status EKG-ER Only STAT Care 11/07/23 04:43 Active IV Insertion STAT Care 11/07/23 04:43 Active AMYLASE Stat Lab 11/07/23 05:12 Completed CBC W DIFF Stat Lab 11/07/23 05:12 Completed CMP Stat Lab 11/07/23 05:12 Completed CULTURE,URINE Stat Lab 11/07/23 05:49 Received LIPASE Stat Lab 11/07/23 05:12 Completed MONO SCREEN Stat Lab 11/07/23 05:12 Completed TROPONIN Q4H Lab 11/07/23 05:12 Completed TROPONIN Q4H Lab 11/07/23 08:45 Ordered TROPONIN Q4H Lab 11/07/23 12:45 Ordered UA W/RFX UR CULTURE Stat Lab 11/07/23 05:49 Completed Medication Summary Generic Name Dose Route Start Last Admin Trade Name Freq PRN Reason Stop Dose Admin Sodium Chloride 1,000 mls @ 50 mls/hr 11/07/23 04:45 11/07/23 05:24 Sodium Chloride 0.9% 1000 Ml IV 12/07/23 04:44 50 mls/hr .Q20H GLENN Administration Discontinued Medications Generic Name Dose Route Start Last Admin Trade Name Freq PRN Reason Stop Dose Admin Cephalexin HCl 500 mg 11/07/23 06:33 Cephalexin Mh500 Mg Capsule PO 11/07/23 06:34 STAT ONE Ondansetron HCl 4 mg 11/07/23 04:43 11/07/23 05:24 Ondansetron Hcl 4 Mg/2 Ml Vial IV 11/07/23 04:44 4 mg STAT ONE Administration Ondansetron HCl Confirm 11/07/23 05:20 Ondansetron Hcl 4 Mg/2 Ml Vial Administered 11/07/23 05:21 Dose 4 mg .ROUTE .STK-MED ONE Lab/Rad Data: Laboratory Result Diagrams 11/07/23 05:12 11/07/23 05:12 Laboratory Results 11/07/23 11/07/23 11/07/23 Range/Units 05:49 05:12 05:12 WBC (4.0-10.5) x10^3/uL RBC (4.1-5.4) x10^6/uL Hgb (12.0-16.0) g/dL Hct (35-47) % MCV (78-100) fL MCH (26-32) pg MCHC (32-36) g/dL RDW (11.5-14.0) % Plt Count (150-450) x10^3/uL MPV (7.5-11.0) fL Gran % (36.0-66.0) % Immature Gran % (Auto) (0.00-0.4) % Nucleat RBC Rel Count (0.00-0.1) % Eos # (Auto) (0-0.5) x10^3/uL Immature Gran # (Auto) (0.00-0.03) x10^3u/L Absolute Lymphs (auto) (1.0-4.6) x10^3/uL Absolute Monos (auto) (0.0-1.3) x10^3/uL Absolute Nucleated RBC (0.00-0.01) x10^3u/L Lymphocytes % (24.0-44.0) % Monocytes % (0.0-12.0) % Eosinophils % (0.00-5.0) % Basophils % (0.0-0.4) % Absolute Granulocytes (1.4-6.9) x10^3/uL Basophils # (0-0.4) x10^3/uL Sodium (135-145) mmol/L Potassium (3.5-5.1) mmol/L Chloride (98-107) mmol/L Carbon Dioxide (22-30) mmol/L Anion Gap (5-15) MEQ/L BUN (7-17) mg/dL Creatinine (0.52-1.04) mg/dL Estimated GFR ML/MIN Glucose (74-106) mg/dL Calcium (8.4-10.2) mg/dL Total Bilirubin (0.2-1.3) mg/dL AST (14-36) U/L ALT (0-35) U/L Alkaline Phosphatase (38-126) U/L Troponin I (0.000-0.033) ng/mL Serum Total Protein (6.3-8.2) g/dL Albumin (3.5-5.0) g/dL Amylase (30-110) U/L Lipase (23-300) U/L Urine Color Yellow (Yellow) Urine Appearance Clear (Clear) Urine pH 5.5 (4.6-8.0) Ur Specific [place] >=1.030 A (1.005-1.030) Urine Protein Negative (Negative) Urine Glucose (UA) >=1000 A (Negative) mg/dL Urine Ketones Trace A (Negative) Urine Blood Negative (Negative) Urine Nitrite Negative (Negative) Urine Bilirubin Negative (Negative) Urine Urobilinogen 1.0 A (0.2) mg/dL Ur Leukocyte Esterase Small A (Negative) U Hyaline Cast (Auto) NONE SEEN (0-2) /LPF Urine Microscopic RBC 0-2 (0-5) /HPF Urine Microscopic WBC 21-50 A (0-5) /HPF Ur Epithelial Cells None Seen (None Seen) /HPF Urine Bacteria None Seen (None Seen) /HPF Urine Culture Reflexed YES (NO) Monoscreen NEGATIVE (NEGATIVE) Influenza Type A Ag NEGATIVE (NEGATIVE) Influenza Type B Ag NEGATIVE (NEGATIVE) RSV (PCR) NEGATIVE (NEGATIVE) SARS-CoV-2 (PCR) NEGATIVE (NEGATIVE) 11/07/23 11/07/23 11/07/23 Range/Units 05:12 05:12 05:12 WBC 6.7 (4.0-10.5) x10^3/uL RBC 4.58 (4.1-5.4) x10^6/uL Hgb 13.5 (12.0-16.0) g/dL Hct 42.0 (35-47) % MCV 91.7 (78-100) fL MCH 29.5 (26-32) pg MCHC 32.1 (32-36) g/dL RDW 12.2 (11.5-14.0) % Plt Count 181 (150-450) x10^3/uL MPV 11.6 H (7.5-11.0) fL Gran % 68.1 H (36.0-66.0) % Immature Gran % (Auto) 0.3 (0.00-0.4) % Nucleat RBC Rel Count 0.0 (0.00-0.1) % Eos # (Auto) 0.17 (0-0.5) x10^3/uL Immature Gran # (Auto) 0.02 (0.00-0.03) x10^3u/L Absolute Lymphs (auto) 1.48 (1.0-4.6) x10^3/uL Absolute Monos (auto) 0.42 (0.0-1.3) x10^3/uL Absolute Nucleated RBC 0.00 (0.00-0.01) x10^3u/L Lymphocytes % 22.2 L (24.0-44.0) % Monocytes % 6.3 (0.0-12.0) % Eosinophils % 2.5 (0.00-5.0) % Basophils % 0.6 (0.0-0.4) % Absolute Granulocytes 4.54 (1.4-6.9) x10^3/uL Basophils # 0.04 (0-0.4) x10^3/uL Sodium 139 (135-145) mmol/L Potassium 3.6 (3.5-5.1) mmol/L Chloride 104 (98-107) mmol/L Carbon Dioxide 27 (22-30) mmol/L Anion Gap 11.6 (5-15) MEQ/L BUN 22 H (7-17) mg/dL Creatinine 0.89 (0.52-1.04) mg/dL Estimated GFR 66.7 ML/MIN Glucose 202 H (74-106) mg/dL Calcium 9.5 (8.4-10.2) mg/dL Total Bilirubin 0.60 (0.2-1.3) mg/dL AST 29 (14-36) U/L ALT 20 (0-35) U/L Alkaline Phosphatase 59 (38-126) U/L Troponin I < 0.012 (0.000-0.033) ng/mL Serum Total Protein 6.3 (6.3-8.2) g/dL Albumin 3.4 L (3.5-5.0) g/dL Amylase 58 (30-110) U/L Lipase 161 (23-300) U/L Urine Color (Yellow) Urine Appearance (Clear) Urine pH (4.6-8.0) Ur Specific [place] (1.005-1.030) Urine Protein (Negative) Urine Glucose (UA) (Negative) mg/dL Urine Ketones (Negative) Urine Blood (Negative) Urine Nitrite (Negative) Urine Bilirubin (Negative) Urine Urobilinogen (0.2) mg/dL Ur Leukocyte Esterase (Negative) U Hyaline Cast (Auto) (0-2) /LPF Urine Microscopic RBC (0-5) /HPF Urine Microscopic WBC (0-5) /HPF Ur Epithelial Cells (None Seen) /HPF Urine Bacteria (None Seen) /HPF Urine Culture Reflexed (NO) Monoscreen (NEGATIVE) Influenza Type A Ag (NEGATIVE) Influenza Type B Ag (NEGATIVE) RSV (PCR) (NEGATIVE) SARS-CoV-2 (PCR) (NEGATIVE) - Progress Progress: improved, re-examined Progress Note: 11/07/23 06:41 My medical decision making and the assignment of moderate complexity to this patient's medical issue is based on review of the patient's past medical history, review of the patient's medication list, review of patient drug allergy list, history present illness and physical findings on examination. The workup includes placement of intravenous line, twelve-lead EKG, troponin level, CBC, CMP, urinalysis, amylase, lipase and viral swabs Differential diagnosis includes UTI, dehydration, electrolyte abnormalities, depression, coronary artery disease/PA 11/07/23 06:43 I interpreted the patient's laboratory data results. There is no evidence of any acute acute, emergent medical issue other than a mild urinary tract infection. Counseled pt/family regarding: lab results, diagnosis, need for follow-up Medical Desision Making - Independent Historian Additional History obtained from: Family - Diagnostic Testing Diagnostic test were ordered, analyzed, and reviewed by me: Yes - Risk of complications The pt has a mod risk of morbidity or mortality based on: Need for prescription drug management - Departure Departure Disposition: Home Clinical Impression: Mild dehydration, Generalized weakness, UTI (urinary tract infection) Condition: Stable Critical Care Time: No Referrals: MICAH DAMON DO [Primary Care Provider] - Follow up/PCP as directed Additional Instructions: Drink plenty of clear liquids. Take your medication as prescribed. Call your primary care provider in the morning of 11/08/2023 to make arrangements for follow-up appointment to be seen in 5 to 7 days Prescriptions: Cephalexin Mh 500 mg [Keflex 500 mg] 500 mg PO TID #21 cap
[2023-11-07 07:06] VITALS: BP 139/79; PULSE 90; RESP 20; O2SAT 95
== END 2023-11-07 07:55 | disposition home or self-care (01) ==
LOC: ED 03:58
DX: N39.0 Urinary tract infection, site not specified (principal); E86.0 Dehydration; R53.1 Weakness; E78.5 Hyperlipidemia, unspecified; E11.9 Type 2 diabetes mellitus without complications; I11.0 Hypertensive heart disease with heart failure; I50.9 Heart failure, unspecified; Z79.84 Long term (current) use of oral hypoglycemic drugs; Z79.891 Long term (current) use of opiate analgesic; Z79.4 Long term (current) use of insulin; Z79.01 Long term (current) use of anticoagulants; Z79.899 Other long term (current) drug therapy
CPT/HCPCS: 0241U; 36000; 36415; 80053; 81001; 82150; 83690; 84484; 85025; 86308; 87086; 93005; 96374; 99284; J2405; A9270-GY